=== PATIENT | male | born 1970 | race Two or more races ===

== ENCOUNTER 2016-06-17 06:14 | Emergency (ER) | payer MEDICAID ==
[~2016-06-17] VITALS: Ht 175.3 cm; Wt 86.2 kg
[~2016-06-17 06:14] MED LIST: ASPI-231 PO; FENO145T20 PO
[2016-06-17] MEDS ORDERED: SODIUM CHLORIDE 0.9% 1,000 ML IV ONE (07:02)
[2016-06-17 07:38] LABS: Basophils # (auto) 0 uL; Basophils % (auto) 0.4 % (0.0-2.0); Eosinophils # (auto) 0.1 uL; Eosinophils % (auto) 1.8 % (0.0-7.0); Hematocrit 29.6 % (41.0-53.0); Hemoglobin 10.1 g/dL (13.5-17.5); Lymphocytes # (auto) 0.7 uL; Lymphocytes % (auto) 13.9 % (10.0-50.0); Mean Corpuscular Hemoglobin 30.4 pg (28.0-32.0); Mean Corpuscular Volume 89.1 fL (80.0-100.0); Mean Platelet Volume 8.1 fL (7.4-10.4); Monocytes # (auto) 0.5 uL; Monocytes % (auto) 8.6 % (0.0-12.0); Neutrophils # (auto) 4.1 uL; Neutrophils % (auto) 75.3 % (37.0-80.0); Platelet Count (auto) 188 10^3/uL (140-450); Red Cell Distribution Width 12.4 % (11.6-16.0); White Blood Cell 5.4 10^3/uL (4.4-10.8)
[2016-06-17 08:04] LABS: Urine Bilirubin Negative (Negative); Urine Blood Negative /uL (Negative); Urine Glucose Normal (Normal); Urine Ketone Negative (Negative); Urine Nitrite Negative (Negative); Urine RBC <1 /hpf (0 - 3); Urine Urobilinogen Normal (Negative); Urine pH 5.5 (5.0-8.0)
[2016-06-17 08:09] LABS: Urine Color Straw (Yellow)
[2016-06-17 08:12] LABS: Albumin 2.9 g/dL (3.4-5.0); Calcium 8.1 mg/dL (8.5-10.1); Magnesium 2.6 mg/dL (1.6-2.6); Potassium 5.1 mmol/L (3.5-5.1)
[2016-06-17 08:14] LABS: BUN/Creatinine Ratio 15.6
[2016-06-17 08:16] LABS: Bilirubin, Total 0.2 mg/dL (0.2-1.0); Total Protein 7.1 g/dL (6.4-8.2)
[2016-06-17 09:02] LABS: Partial Thromboplastin Time 28.2 sec (22.64-33.71); Prothrombin Time 9.6 sec (9.37-12.3)
[2016-06-17 09:05] LABS: INR 0.89 (0.9-1.15)
[2016-06-17 11:15] VITALS: BP 109/66
== END 2016-06-17 12:41 | disposition home or self-care (01) ==
LOC: EDBD 06:14 → ER 06:17
DX: E11.649 Type 2 diabetes mellitus with hypoglycemia without coma (principal); G93.41 Metabolic encephalopathy; I12.9 Hypertensive chronic kidney disease with stage 1 through stage 4 chronic kidney disease, or unspecified chronic kidney disease; E11.22 Type 2 diabetes mellitus with diabetic chronic kidney disease; N18.4 Chronic kidney disease, stage 4 (severe); D63.1 Anemia in chronic kidney disease; E44.0 Moderate protein-calorie malnutrition; Z68.28 Body mass index [BMI] 28.0-28.9, adult; E11.21 Type 2 diabetes mellitus with diabetic nephropathy; Z87.891 Personal history of nicotine dependence; Z79.4 Long term (current) use of insulin; Z86.73 Personal history of transient ischemic attack (TIA), and cerebral infarction without residual deficits; Z88.1 Allergy status to other antibiotic agents; Z79.82 Long term (current) use of aspirin
CPT/HCPCS: 36415; 80053; 81001; 82962; 83735; 84443; 85025; 85610; 85730; 96360; 99285; J7030

== ENCOUNTER 2017-03-26 19:53 | Emergency (ER) | payer OTHER, MEDICAID ==
[~2017-03-26] VITALS: Ht 162.6 cm; Wt 90.7 kg
[~2017-03-26 19:53] MED LIST changes: -FENO145T20 PO; +FENO1TAB42 PO
[2017-03-26 23:10] VITALS: BP 133/70
[2017-03-27] MEDS ORDERED: KETOROLAC TROMETH 60MG/2ML VIAL IM ONE (00:30)
[2017-05-14] MEDS ORDERED: SEVE800T8 PO (09:30)
== END 2017-03-27 03:55 | disposition home or self-care (01) ==
LOC: ER 19:53
DX: M16.11 Unilateral primary osteoarthritis, right hip (principal); I12.9 Hypertensive chronic kidney disease with stage 1 through stage 4 chronic kidney disease, or unspecified chronic kidney disease; E11.9 Type 2 diabetes mellitus without complications; E78.5 Hyperlipidemia, unspecified; Z86.73 Personal history of transient ischemic attack (TIA), and cerebral infarction without residual deficits; Z87.891 Personal history of nicotine dependence; Z79.82 Long term (current) use of aspirin; Z89.512 Acquired absence of left leg below knee
CPT/HCPCS: 73502; 96372; 99284; J1885

== ENCOUNTER 2017-04-01 05:39 | Inpatient (IN) | payer OTHER, MEDICAID ==
[~2017-04-01] VITALS: Ht 170.2 cm; Wt 89.7 kg
[2017-04-01] MEDS ORDERED: SODIUM CHLORIDE 0.9% 1,000 ML IV ONE (06:48)
[2017-04-01] MEDS ORDERED: LABETALOL HCL 5 MG/ML ML 20ML VIAL IV ONE (07:00)
[2017-04-01 07:46] LABS: Basophils # (auto) 0 uL; Basophils % (auto) 0.4 % (0.0-2.0); Eosinophils # (auto) 0.1 uL; Eosinophils % (auto) 0.6 % (0.0-7.0); Hematocrit 34.1 % (41.0-53.0); Hemoglobin 11.3 g/dL (13.5-17.5); Lymphocytes # (auto) 0.8 uL; Lymphocytes % (auto) 6.1 % (10.0-50.0); Mean Corpuscular Volume 90.8 fL (80.0-100.0); Monocytes # (auto) 0.6 uL; Monocytes % (auto) 4.5 % (0.0-12.0); Neutrophils # (auto) 11.4 uL; Neutrophils % (auto) 88.4 % (37.0-80.0); Platelet Count (auto) 212 10^3/uL (140-450); Red Blood Cells 3.76 10^6/uL (4.5-5.90); Red Cell Distribution Width 14.1 % (11.8-14.3); White Blood Cell 12.9 10^3/uL (4.4-10.8)
[2017-04-01 08:07] LABS: INR 0.94 (0.9-1.15); Prothrombin Time 10.2 sec (9.37-12.3)
[2017-04-01 08:08] LABS: Alanine Aminotransferase 42 U/L (16-61); Albumin 3.1 g/dL (3.4-5.0); Alkaline Phosphatase 92 U/L (45-117); Anion Gap 17 (5-15); Aspartate Aminotransferase 22 U/L (15-37); BUN/Creatinine Ratio 13.4; Bilirubin, Total 0.2 mg/dL (0.2-1.0); Blood Alcohol < 3.0 mg/dL (0-5); Calcium 8.1 mg/dL (8.5-10.1); Carbon Dioxide 19 mmol/L (21-32); Chloride 106 mmol/L (98-107); GFR African American 8 mL/min; GFR Non-African American 6 mL/min; Glucose 225 mg/dL (74-106); Potassium 4.7 mmol/L (3.5-5.1); Sodium 142 mmol/L (136-145); Total Protein 8.2 g/dL (6.4-8.2)
[2017-04-01 08:20] LABS: Blood Urea Nitrogen 127 mg/dL (7-18)
[2017-04-01 08:31] LABS: Urine Bacteria FEW /hpf (None Seen); Urine Blood Negative /uL (Negative); Urine Specific Gravity 1.013 (1.001-1.035); Urine WBC 1 /hpf (0 - 3)
[2017-04-01 08:41] LABS: Alcohol, Urine < 3.0 mg/dL (0-5); Amphetamine Screen, Urine NEGATIVE (NEGATIVE); Barbiturate Scree,Urine NEGATIVE (NEGATIVE); Benzodiazephine Screen, Urine NEGATIVE (NEGATIVE); Cannabinoid Screen, Urine NEGATIVE (NEGATIVE); Cocaine Screen, Urine NEGATIVE (NEGATIVE); Opiate Scree,Urine NEGATIVE (NEGATIVE); Phencyclidine Screen, Urine NEGATIVE (NEGATIVE)
[2017-04-01] MEDS: SODIUM CHLORIDE 0.9% 1,000 ML IV SCH (09:36)
[2017-04-01] MEDS ORDERED: FERR-20 PO (09:44)
[2017-04-01] MEDS ORDERED: LEVO50TA7 PO (09:44)
[2017-04-01] MEDS ORDERED: GABA300C10 PO (09:44)
[2017-04-01] MEDS ORDERED: LOSA50TA6 PO (09:44)
[2017-04-01] MEDS ORDERED: CAR3125T PO (09:44)
[2017-04-01] MEDS ORDERED: MECL-87 PO (09:44)
[2017-04-01] MEDS ORDERED: BACL10TA PO (09:44)
[2017-04-01] MEDS ORDERED: ERGO2000 PO (09:44)
[2017-04-01] MEDS ORDERED: SIMV-13 PO (09:44)
[2017-04-01] MEDS ORDERED: CHLO25TA22 PO (09:44)
[2017-04-01] MEDS ORDERED: BUME1TAB28 PO (09:44)
[2017-04-01] MEDS ORDERED: GLIP-116 PO (09:44)
[2017-04-01] MEDS ORDERED: HYDROcodone-ACET 5/325MG TAB PO PRN (09:45)
[2017-04-01] MEDS ORDERED: MORPHINE SULFATE 4 MG/ML SYR/VIAL IV PRN ×2 (09:45)
[2017-04-01] MEDS ORDERED: cefTRIAXone 1GM/10ml IVPUSH 10 ML IV ONE (09:45)
[2017-04-01] MEDS ORDERED: MECLIZINE HCL 25 MG TAB PO PRN (09:45)
[2017-04-01] MEDS ORDERED: NITROGLYCERIN 0.4 MG SL TAB SL PRN (09:45)
[2017-04-01] MEDS: LOSARTAN POTASSIUM 50 MG TAB PO SCH (10:00)
[2017-04-01] MEDS: BUMETANIDE 1 MG TAB PO SCH ×2 (10:00→18:00)
[2017-04-01] MEDS: GABAPENTIN 300 MG CAP PO SCH (10:00)
[2017-04-01] MEDS: glipiZIDE 5 MG TAB PO SCH ×2 (10:00→18:00)
[2017-04-01] MEDS: MULTIPLE VITAMIN TAB PO SCH (10:00)
[2017-04-01] MEDS: ASCORBIC ACID 500 MG TAB PO SCH ×2 (10:00→22:00)
[2017-04-01] MEDS: FAMOTIDINE 20 MG TAB PO SCH (10:00)
[2017-04-01] MEDS: CARVEDILOL 3.125 MG TAB PO SCH ×2 (10:00→22:00)
[2017-04-01] MEDS ORDERED: FAMOTIDINE 20 MG TAB PO SCH (10:00)
[2017-04-01] MEDS: ZINC SULFATE 220 MG CAP PO SCH (10:00)
[2017-04-01] MEDS ORDERED: ASPirin-EC 81 mg tab PO ONE (10:15)
[2017-04-01] MEDS: LINEZOLID 600MG/300ML 300 ML IV SCH ×2 (10:19→22:17)
[2017-04-01] MEDS: ENOXAPARIN SOD 30 MG/0.3 ML SYRINGE SC SCH (10:19)
[2017-04-01] MEDS: Boost Glucose Control 8 Ounces PO SCH ×2 (12:00→18:00)
[2017-04-01] MEDS: FERROUS SULFATE 325 MG TAB PO SCH ×2 (12:00→18:00)
[2017-04-01] MEDS: SODIUM CHL 0.9% 1000 ML BAG XX ONE ×2 (12:45→13:14)
[2017-04-01] MEDS ORDERED: GABAPENTIN 300 MG CAP PO SCH (14:00)
[2017-04-01] MEDS ORDERED: LABETALOL HCL 5 MG/ML ML 20ML VIAL IV PRN (18:45)
[2017-04-01] MEDS: ATORVASTATIN 20 MG TAB PO SCH (22:00)
[2017-04-02] MEDS: SODIUM CHLORIDE 0.9% 1,000 ML IV SCH (02:44)
[2017-04-02] MEDS: ONDANSETRON HCL 4 MG/2 ML VIAL IV PRN ×2 (02:49→07:04)
[2017-04-02 05:46] LABS: Basophils # (auto) 0 uL; Basophils % (auto) 0.4 % (0.0-2.0); Eosinophils # (auto) 0 uL; Eosinophils % (auto) 0.4 % (0.0-7.0); Hematocrit 28.9 % (41.0-53.0); Hemoglobin 9.4 g/dL (13.5-17.5); Lymphocytes # (auto) 0.8 uL; Lymphocytes % (auto) 10.5 % (10.0-50.0); Mean Corpuscular Hemoglobin 29.9 pg (28.0-32.0); Mean Corpuscular Hgb Conc. 32.7 g/dL (32.0-36.0); Mean Corpuscular Volume 91.5 fL (80.0-100.0); Monocytes # (auto) 0.6 uL; Monocytes % (auto) 8.3 % (0.0-12.0); Neutrophils # (auto) 6.2 uL; Neutrophils % (auto) 80.4 % (37.0-80.0); Platelet Count (auto) 186 10^3/uL (140-450); Red Blood Cells 3.15 10^6/uL (4.5-5.90); Red Cell Distribution Width 14.3 % (11.8-14.3); White Blood Cell 7.7 10^3/uL (4.4-10.8)
[2017-04-02] MEDS: BUMETANIDE 1 MG TAB PO SCH ×2 (06:00→17:17)
[2017-04-02 06:07] LABS: Albumin 2.7 g/dL (3.4-5.0); BUN/Creatinine Ratio 11.9; Bilirubin, Total 0.2 mg/dL (0.2-1.0); Phosphorus 6.7 mg/dL (2.5-4.90); Potassium 4.6 mmol/L (3.5-5.1); Total Protein 7.1 g/dL (6.4-8.2)
[2017-04-02] MEDS: glipiZIDE 5 MG TAB PO SCH ×2 (06:55→17:21)
[2017-04-02] MEDS: LEVOTHYROXINE SODIUM 50 MCG TAB PO SCH (06:55)
[2017-04-02 08:00] VITALS: BP 151/81
[2017-04-02] MEDS: Boost Glucose Control 8 Ounces PO SCH ×3 (08:07→17:16)
[2017-04-02] MEDS: FERROUS SULFATE 325 MG TAB PO SCH (08:08)
[2017-04-02 09:00] VITALS: BP 150/81
[2017-04-02] MEDS ORDERED: cefTRIAXone 1GM/10ml IVPUSH 10 ML IV SCH (09:00)
[2017-04-02] MEDS: ENOXAPARIN SOD 30 MG/0.3 ML SYRINGE SC SCH (09:47)
[2017-04-02] MEDS: ZINC SULFATE 220 MG CAP PO SCH (09:47)
[2017-04-02] MEDS: ASPirin-EC 81 mg tab PO SCH (09:48)
[2017-04-02] MEDS: LOSARTAN POTASSIUM 50 MG TAB PO SCH (09:48)
[2017-04-02] MEDS: GABAPENTIN 300 MG CAP PO SCH (09:48)
[2017-04-02] MEDS: FAMOTIDINE 20 MG TAB PO SCH (09:48)
[2017-04-02] MEDS: MULTIPLE VITAMIN TAB PO SCH (09:48)
[2017-04-02] MEDS: LINEZOLID 600MG/300ML 300 ML IV SCH (09:49)
[2017-04-02] MEDS: ASCORBIC ACID 500 MG TAB PO SCH ×2 (09:49→21:51)
[2017-04-02] MEDS: CARVEDILOL 3.125 MG TAB PO SCH ×2 (09:49→21:52)
[2017-04-02] MEDS ORDERED: SODIUM CHL 0.9% 1000 ML BAG XX ONE (10:45)
[2017-04-02] MEDS ORDERED: EPOETIN ALFA 10,000 UNIT/1 ML VIAL IV ONE (10:45)
[2017-04-02] MEDS ORDERED: ERGOCALCIFEROL 50,000 UNIT(1.25MG) CAP PO SCH (12:00)
[2017-04-02] MEDS: SEVELAMER 800 MG TAB PO SCH ×2 (12:45→17:21)
[2017-04-02 17:00] VITALS: BP 145/82
[2017-04-02 20:53] VITALS: BP 158/104
[2017-04-02] MEDS: ATORVASTATIN 20 MG TAB PO SCH (21:52)
[2017-04-02] MEDS: LABETALOL HCL 5 MG/ML ML 20ML VIAL IV PRN (21:53)
[2017-04-03 04:54] VITALS: BP 166/92
[2017-04-03 06:00] VITALS: BP 155/89
[2017-04-03] MEDS: LEVOTHYROXINE SODIUM 50 MCG TAB PO SCH (06:12)
[2017-04-03] MEDS: glipiZIDE 5 MG TAB PO SCH ×3 (06:13→18:00)
[2017-04-03] MEDS: BUMETANIDE 1 MG TAB PO SCH ×2 (06:13→18:11)
[2017-04-03 06:14] LABS: Calcium 8.8 mg/dL (8.5-10.1); Potassium 4.1 mmol/L (3.5-5.1)
[2017-04-03 06:16] LABS: BUN/Creatinine Ratio 9.5
[2017-04-03 09:00] VITALS: BP 147/99
[2017-04-03] MEDS: Boost Glucose Control 8 Ounces PO SCH ×3 (09:29→18:00)
[2017-04-03] MEDS: FERROUS SULFATE 325 MG TAB PO SCH (09:30)
[2017-04-03] MEDS: ZINC SULFATE 220 MG CAP PO SCH (09:30)
[2017-04-03] MEDS: SEVELAMER 800 MG TAB PO SCH ×3 (09:30→18:00)
[2017-04-03] MEDS: CARVEDILOL 3.125 MG TAB PO SCH ×3 (09:31→22:02)
[2017-04-03] MEDS: LOSARTAN POTASSIUM 50 MG TAB PO SCH (09:31)
[2017-04-03] MEDS: ASPirin-EC 81 mg tab PO SCH (09:31)
[2017-04-03] MEDS: FAMOTIDINE 20 MG TAB PO SCH (09:32)
[2017-04-03] MEDS: MULTIPLE VITAMIN TAB PO SCH (09:32)
[2017-04-03] MEDS: GABAPENTIN 300 MG CAP PO SCH (09:32)
[2017-04-03] MEDS: ASCORBIC ACID 500 MG TAB PO SCH ×3 (09:33→22:02)
[2017-04-03] MEDS: ENOXAPARIN SOD 30 MG/0.3 ML SYRINGE SC SCH (09:33)
[2017-04-03] MEDS: NIFEdipine ER 30 MG TAB PO SCH (09:33)
[2017-04-03 13:00] VITALS: BP 129/65
[2017-04-03] MEDS ORDERED: HALOPERIDOL 5 MG TAB PO ONE (15:00)
[2017-04-03] MEDS ORDERED: HALOPERIDOL 5 MG TAB PO PRN (15:00)
[2017-04-03 17:00] VITALS: BP 103/67
[2017-04-03] MEDS: DOCUSATE SOD 100 MG CAP PO PRN (18:16)
[2017-04-03] MEDS ORDERED: BISACODYL 10 MG RECT SUPP PR PRN ×2 (18:30→18:45)
[2017-04-03 22:00] VITALS: BP 161/84
[2017-04-03] MEDS: ATORVASTATIN 20 MG TAB PO SCH ×2 (22:00→22:01)
[2017-04-04] VITALS (7 sets, daily range): BP systolic 122–159; BP diastolic 73–90
[2017-04-04 06:13] LABS: Calcium 8.9 mg/dL (8.5-10.1); Potassium 4.1 mmol/L (3.5-5.1)
[2017-04-04] MEDS: BUMETANIDE 1 MG TAB PO SCH ×2 (06:17→17:46)
[2017-04-04] MEDS: glipiZIDE 5 MG TAB PO SCH ×2 (06:34→17:49)
[2017-04-04] MEDS: LEVOTHYROXINE SODIUM 50 MCG TAB PO SCH (06:34)
[2017-04-04] MEDS ORDERED: EPOETIN ALFA 10,000 UNIT/1 ML VIAL IV ONE (07:30)
[2017-04-04] MEDS ORDERED: SODIUM CHL 0.9% 1000 ML BAG XX ONE (07:30)
[2017-04-04] MEDS: SEVELAMER 800 MG TAB PO SCH ×3 (08:00→17:49)
[2017-04-04 09:29] LABS: Hepatitis B Surface Antibody Negative
[2017-04-04 09:37] LABS: Hepatitis B Surface Antigen Negative (Negative)
[2017-04-04] MEDS: ENOXAPARIN SOD 30 MG/0.3 ML SYRINGE SC SCH (09:49)
[2017-04-04] MEDS: CARVEDILOL 3.125 MG TAB PO SCH ×2 (09:50→21:35)
[2017-04-04] MEDS: ASCORBIC ACID 500 MG TAB PO SCH ×2 (09:50→21:35)
[2017-04-04] MEDS: FAMOTIDINE 20 MG TAB PO SCH (09:50)
[2017-04-04] MEDS: MULTIPLE VITAMIN TAB PO SCH (09:50)
[2017-04-04] MEDS: LOSARTAN POTASSIUM 50 MG TAB PO SCH (09:50)
[2017-04-04] MEDS: ZINC SULFATE 220 MG CAP PO SCH (09:51)
[2017-04-04] MEDS: FERROUS SULFATE 325 MG TAB PO SCH (09:51)
[2017-04-04] MEDS: ASPirin-EC 81 mg tab PO SCH (09:51)
[2017-04-04 09:57] LABS: Hepatitis C Antibody Negative (Negative)
[2017-04-04 09:59] LABS: Hepatitis A Total Antibody Positive
[2017-04-04 10:00] LABS: Hepatitis B Core Total AB Negative
[2017-04-04] MEDS: NIFEdipine ER 30 MG TAB PO SCH (10:00)
[2017-04-04] MEDS: Boost Glucose Control 8 Ounces PO SCH ×3 (10:48→17:44)
[2017-04-04] MEDS: ATORVASTATIN 20 MG TAB PO SCH (21:35)
[2017-04-05 06:06] VITALS: BP 118/76
[2017-04-05 06:35] LABS: Basophils # (auto) 0 uL; Basophils % (auto) 0.6 % (0.0-2.0); Eosinophils # (auto) 0.1 uL; Eosinophils % (auto) 1.8 % (0.0-7.0); Hematocrit 26.8 % (41.0-53.0); Lymphocytes # (auto) 0.9 uL; Lymphocytes % (auto) 12.2 % (10.0-50.0); Mean Corpuscular Hemoglobin 30.6 pg (28.0-32.0); Mean Corpuscular Hgb Conc. 33.4 g/dL (32.0-36.0); Mean Corpuscular Volume 91.4 fL (80.0-100.0); Monocytes # (auto) 0.9 uL; Monocytes % (auto) 11.7 % (0.0-12.0); Neutrophils # (auto) 5.7 uL; Neutrophils % (auto) 73.7 % (37.0-80.0); Nucleated Red Blood Cells % 0.1 %; Platelet Count (auto) 159 10^3/uL (140-450); Red Blood Cells 2.93 10^6/uL (4.5-5.90); Red Cell Distribution Width 13.6 % (11.8-14.3); White Blood Cell 7.7 10^3/uL (4.4-10.8)
[2017-04-05] MEDS: BUMETANIDE 1 MG TAB PO SCH ×2 (06:40→17:33)
[2017-04-05] MEDS: glipiZIDE 5 MG TAB PO SCH ×2 (06:40→17:41)
[2017-04-05] MEDS: LEVOTHYROXINE SODIUM 50 MCG TAB PO SCH (06:41)
[2017-04-05 06:57] LABS: Potassium 3.9 mmol/L (3.5-5.1)
[2017-04-05 07:12] LABS: BUN/Creatinine Ratio 11.5
[2017-04-05 07:15] LABS: INR 0.87 (0.9-1.15); Prothrombin Time 9.5 sec (9.37-12.3)
[2017-04-05 07:25] LABS: Partial Thromboplastin Time 26.8 sec (22.64-33.71)
[2017-04-05] MEDS: Boost Glucose Control 8 Ounces PO SCH ×3 (07:58→17:33)
[2017-04-05] MEDS: SEVELAMER 800 MG TAB PO SCH ×3 (07:58→17:39)
[2017-04-05 08:00] VITALS: BP 124/87
[2017-04-05 08:30] VITALS: BP 120/75
[2017-04-05] MEDS ORDERED: HEPARIN IN NS 1000Units/500mL 0 ML ONE (09:58)
[2017-04-05] MEDS ORDERED: LIDOCAINE 2%HCL (LOCAL ANESTH.) INJ 20ML MDV ONE ×2 (09:58→10:24)
[2017-04-05] MEDS: ENOXAPARIN SOD 30 MG/0.3 ML SYRINGE SC SCH (10:00)
[2017-04-05] MEDS: ASCORBIC ACID 500 MG TAB PO SCH ×2 (10:00→22:00)
[2017-04-05] MEDS ORDERED: EPOETIN ALFA 10,000 UNIT/1 ML VIAL IV ONE (10:00)
[2017-04-05] MEDS: NIFEdipine ER 30 MG TAB PO SCH (10:00)
[2017-04-05] MEDS: ZINC SULFATE 220 MG CAP PO SCH (10:00)
[2017-04-05] MEDS: FERROUS SULFATE 325 MG TAB PO SCH (10:00)
[2017-04-05] MEDS ORDERED: SODIUM CHL 0.9% 1000 ML BAG XX ONE (10:00)
[2017-04-05] MEDS: LOSARTAN POTASSIUM 50 MG TAB PO SCH (10:00)
[2017-04-05] MEDS: ASPirin-EC 81 mg tab PO SCH (10:00)
[2017-04-05] MEDS: MULTIPLE VITAMIN TAB PO SCH (10:00)
[2017-04-05] MEDS: FAMOTIDINE 20 MG TAB PO SCH (10:00)
[2017-04-05] MEDS: CARVEDILOL 3.125 MG TAB PO SCH ×2 (10:00→22:10)
[2017-04-05] MEDS ORDERED: fentaNYL CITRATE 100 MCG/2 ML VL ONE (10:24)
[2017-04-05] MEDS ORDERED: MIDAZOLAM HCL 1MG/1ML-2 ML VIAL ONE (10:24)
[2017-04-05] MEDS ORDERED: ceFAZolin 1GM/50ML 50 ML IV ONE (10:38)
[2017-04-05] MEDS ORDERED: HEPARIN SODIUM (PORCINE) 5000 UNITS/ML 1ML VIAL ONE (10:54)
[2017-04-05] MEDS: LABETALOL HCL 5 MG/ML ML 20ML VIAL IV PRN (11:57)
[2017-04-05] MEDS: ACETAMINOPHEN 325 MG TAB PO PRN ×2 (17:31→22:09)
[2017-04-05 22:00] VITALS: BP 129/84
[2017-04-05] MEDS: ATORVASTATIN 20 MG TAB PO SCH (22:10)
[2017-04-05] MEDS: DOCUSATE SOD 100 MG CAP PO PRN (22:17)
[2017-04-06] MEDS: ACETAMINOPHEN 325 MG TAB PO PRN (03:27)
[2017-04-06 05:00] VITALS: BP 117/62
[2017-04-06 05:45] LABS: Basophils # (auto) 0 uL; Basophils % (auto) 0.6 % (0.0-2.0); Eosinophils # (auto) 0.2 uL; Eosinophils % (auto) 2.1 % (0.0-7.0); Hematocrit 31.5 % (41.0-53.0); Hemoglobin 10.5 g/dL (13.5-17.5); Lymphocytes # (auto) 0.9 uL; Lymphocytes % (auto) 10.1 % (10.0-50.0); Mean Corpuscular Hemoglobin 30.1 pg (28.0-32.0); Mean Corpuscular Hgb Conc. 33.2 g/dL (32.0-36.0); Mean Corpuscular Volume 90.7 fL (80.0-100.0); Monocytes % (auto) 11.6 % (0.0-12.0); Neutrophils # (auto) 6.4 uL; Neutrophils % (auto) 75.6 % (37.0-80.0); Nucleated Red Blood Cells % 0.1 %; Platelet Count (auto) 187 10^3/uL (140-450); Red Blood Cells 3.48 10^6/uL (4.5-5.90); White Blood Cell 8.5 10^3/uL (4.4-10.8)
[2017-04-06] MEDS: glipiZIDE 5 MG TAB PO SCH (06:27)
[2017-04-06] MEDS: LEVOTHYROXINE SODIUM 50 MCG TAB PO SCH (06:27)
[2017-04-06] MEDS: BUMETANIDE 1 MG TAB PO SCH (06:27)
[2017-04-06 07:45] VITALS: BP 128/80
[2017-04-06] MEDS: SEVELAMER 800 MG TAB PO SCH (07:56)
[2017-04-06] MEDS: Boost Glucose Control 8 Ounces PO SCH (07:56)
[2017-04-06] MEDS ORDERED: NIFE30TA76 PO (09:43)
[2017-04-06] MEDS ORDERED: ASCO500T11 PO (09:43)
[2017-04-06] MEDS ORDERED: ZIN220C PO (09:43)
[2017-04-06] MEDS ORDERED: SODIUM CHL 0.9% 1000 ML BAG XX ONE (10:00)
[2017-04-06] MEDS: LOSARTAN POTASSIUM 50 MG TAB PO SCH (10:13)
[2017-04-06] MEDS: FERROUS SULFATE 325 MG TAB PO SCH (10:13)
[2017-04-06] MEDS: CARVEDILOL 3.125 MG TAB PO SCH (10:14)
[2017-04-06] MEDS: ASCORBIC ACID 500 MG TAB PO SCH (10:15)
[2017-04-06] MEDS: NIFEdipine ER 30 MG TAB PO SCH (10:15)
[2017-04-06] MEDS: MULTIPLE VITAMIN TAB PO SCH (10:15)
[2017-04-06] MEDS: ZINC SULFATE 220 MG CAP PO SCH (10:15)
[2017-04-06] MEDS: ENOXAPARIN SOD 30 MG/0.3 ML SYRINGE SC SCH (10:16)
[2017-04-06] MEDS: FAMOTIDINE 20 MG TAB PO SCH (10:16)
[2017-04-06] MEDS: ASPirin-EC 81 mg tab PO SCH (10:16)
[2017-04-06 10:26] VITALS: BP 129/80
[2017-05-14] MEDS ORDERED: SEVE800T8 PO (09:30)
== END 2017-04-06 11:00 | disposition home or self-care (01) | DRG 91 ==
LOC: ER 05:39 → EDBD 05:39 → OVERFLOW 05:40 → TELE 23:26 → TELE-WESTW 04-02 06:14
PROVIDERS: ADMIT Internal Medicine; ATTEND Internal Medicine
PROC: 5A1D70Z Performance of Urinary Filtration, Intermittent, Less than 6 Hours Per Day (ICD-10-PCS; 2017-04-01)
PROC: 05H333Z Insertion of Infusion Device into Right Innominate Vein, Percutaneous Approach (ICD-10-PCS; 2017-04-01)
PROC: 5A1D70Z Performance of Urinary Filtration, Intermittent, Less than 6 Hours Per Day (ICD-10-PCS; 2017-04-02)
PROC: 5A1D70Z Performance of Urinary Filtration, Intermittent, Less than 6 Hours Per Day (ICD-10-PCS; principal; 2017-04-05)
DX: G92 Toxic encephalopathy (principal); N18.6 End stage renal disease; N17.9 Acute kidney failure, unspecified; E44.0 Moderate protein-calorie malnutrition; I12.0 Hypertensive chronic kidney disease with stage 5 chronic kidney disease or end stage renal disease; E11.21 Type 2 diabetes mellitus with diabetic nephropathy; E11.40 Type 2 diabetes mellitus with diabetic neuropathy, unspecified; E87.2 Acidosis; I69.351 Hemiplegia and hemiparesis following cerebral infarction affecting right dominant side; E11.22 Type 2 diabetes mellitus with diabetic chronic kidney disease; D63.1 Anemia in chronic kidney disease; E03.9 Hypothyroidism, unspecified; E78.5 Hyperlipidemia, unspecified; E83.51 Hypocalcemia; G31.9 Degenerative disease of nervous system, unspecified; I70.0 Atherosclerosis of aorta; T42.8X5A Adverse effect of antiparkinsonism drugs and other central muscle-tone depressants, initial encounter; K42.9 Umbilical hernia without obstruction or gangrene; Z79.82 Long term (current) use of aspirin; Z79.899 Other long term (current) drug therapy; Z89.512 Acquired absence of left leg below knee; Z90.49 Acquired absence of other specified parts of digestive tract; Z99.2 Dependence on renal dialysis; Y92.89 Other specified places as the place of occurrence of the external cause; Z88.2 Allergy status to sulfonamides; Z88.8 Allergy status to other drugs, medicaments and biological substances; Z88.1 Allergy status to other antibiotic agents; Z68.31 Body mass index [BMI] 31.0-31.9, adult
CPT/HCPCS: 36415; 36556; 51702; 70450; 71045; 74176; 76000; 76937; 80048; 80053; 80307; 80320; 81001; 82140; 82248; 82962; 83036; 83605; 84100; 84443; 84484; 85025; 85610; 85730; 86704; 86706; 86708; 86803; 87040; 87086; 87340; 90935; 92610; 93005; 93306; 93886; 95819; 96361; 96374; 97163; 99152; J0690; J0885; J1642; J2250; J2405

== ENCOUNTER 2017-06-30 19:56 | Inpatient (IN) | payer OTHER, MEDICAID ==
[~2017-06-30] VITALS: Ht 165.1 cm; Wt 90.7 kg
[~2017-06-30 19:56] MED LIST changes: +ASCO500T11 PO; +BUME1TAB28 PO; +CAR3125T PO; +CHLO25TA22 PO; +ERGO2000 PO; -FENO1TAB42 PO; +FERR-20 PO; +GABA300C10 PO; +GLIP-116 PO; +LEVO50TA7 PO; +MECL-87 PO; +NIFE30TA76 PO; +SEVE800T8 PO; +SIMV-13 PO; +ZIN220C PO
[2017-06-30] MEDS ORDERED: FUROSEMIDE 100 MG/10ML VIAL IV ONE (20:15)
[2017-06-30] MEDS ORDERED: FUROSEMIDE 40 MG/4 ML VIAL IV ONE (20:15)
[2017-06-30 21:11] LABS: Basophils # (auto) 0.1 uL; Basophils % (auto) 0.6 % (0.0-2.0); Eosinophils # (auto) 0.1 uL; Eosinophils % (auto) 0.8 % (0.0-7.0); Hematocrit 33.7 % (41.0-53.0); Hemoglobin 10.7 g/dL (13.5-17.5); Lymphocytes # (auto) 1.7 uL; Lymphocytes % (auto) 15.4 % (10.0-50.0); Mean Corpuscular Hemoglobin 28.8 pg (28.0-32.0); Mean Corpuscular Hgb Conc. 31.7 g/dL (32.0-36.0); Mean Corpuscular Volume 90.6 fL (80.0-100.0); Monocytes # (auto) 0.7 uL; Monocytes % (auto) 6.4 % (0.0-12.0); Neutrophils # (auto) 8.7 uL; Neutrophils % (auto) 76.8 % (37.0-80.0); Platelet Count (auto) 181 10^3/uL (140-450); Red Blood Cells 3.72 10^6/uL (4.5-5.90); Red Cell Distribution Width 15.7 % (11.8-14.3); White Blood Cell 11.3 10^3/uL (4.4-10.8)
[2017-06-30 21:29] LABS: Alanine Aminotransferase 21 U/L (16-61); Anion Gap 13 (5-15); Aspartate Aminotransferase 26 U/L (15-37); BUN/Creatinine Ratio 6.6; Blood Urea Nitrogen 66 mg/dL (7-18); Calcium 8.2 mg/dL (8.5-10.1); Carbon Dioxide 21 mmol/L (21-32); Chloride 103 mmol/L (98-107); GFR African American 7 mL/min; GFR Non-African American 6 mL/min; Glucose 80 mg/dL (74-106); Sodium 137 mmol/L (136-145)
[2017-06-30] MEDS ORDERED: LABETALOL HCL 5 MG/ML ML 20ML VIAL IV ONE (21:30)
[2017-06-30 21:32] LABS: Potassium 5.9 mmol/L (3.5-5.1)
[2017-06-30 21:34] LABS: Alkaline Phosphatase 135 U/L (45-117); Bilirubin, Total 0.5 mg/dL (0.2-1.0); Total Protein 8.7 g/dL (6.4-8.2)
[2017-06-30] MEDS ORDERED: HYDROcodone-ACET 5/325MG TAB PO PRN (22:30)
[2017-06-30] MEDS ORDERED: LEVOFLOXACIN 250MG 50 ML IV ONE (22:30)
[2017-06-30] MEDS ORDERED: MORPHINE SULFATE 4 MG/ML SYR/VIAL IV PRN (22:30)
[2017-06-30] MEDS ORDERED: InsuLIN REG 1unit/0.01ml Soln (100units/ml) IV ONE (22:30)
[2017-06-30] MEDS ORDERED: CALCIUM GLUC 4.65meq/50ml D5AE 50 ML IV ONE (22:30)
[2017-06-30] MEDS ORDERED: SODIUM POLYSTYRENE SULF 15GM/60ML SUSP PO ONE (22:30)
[2017-06-30] MEDS ORDERED: TEMAZEPAM 15 MG CAP PO PRN (22:30)
[2017-06-30] MEDS ORDERED: ACETAMINOPHEN 325 MG TAB PO PRN (22:30)
[2017-06-30] MEDS ORDERED: ALBUTEROL SULF 2.5 MG/0.5ML(0.5%) NEB SOLN NEB PRN (22:30)
[2017-06-30] MEDS ORDERED: NITROGLYCERIN 0.4 MG SL TAB SL PRN (22:30)
[2017-06-30] MEDS ORDERED: DEXTROSE (50%) 50ML SYRG IV ONE (22:30)
[2017-06-30] MEDS ORDERED: ONDANSETRON HCL 4 MG/2 ML VIAL IV PRN (22:30)
[2017-06-30] MEDS ORDERED: cloNIDine HCL 0.1 MG TAB PO PRN (22:30)
[2017-06-30 22:42] LABS: INR 1.05 (0.9-1.15); Partial Thromboplastin Time 27.4 sec (22.64-33.71); Prothrombin Time 11.5 sec (9.37-12.3)
[2017-06-30 22:50] VITALS: BP 135/75
[2017-06-30 23:14] VITALS: BP 143/81
[2017-07-01 00:55] VITALS: BP 152/88
[2017-07-01 01:04] LABS: Urine Bacteria FEW /hpf (None Seen); Urine Blood 2+ /uL (Negative); Urine Hyaline Cast FEW /lpf (0 - 2); Urine WBC 3 /hpf (0 - 3)
[2017-07-01 03:57] LABS: Basophils # (auto) 0.1 uL; Basophils % (auto) 0.6 % (0.0-2.0); Eosinophils # (auto) 0.1 uL; Eosinophils % (auto) 0.8 % (0.0-7.0); Hematocrit 28.6 % (41.0-53.0); Hemoglobin 9.5 g/dL (13.5-17.5); Lymphocytes # (auto) 1.7 uL; Lymphocytes % (auto) 16.6 % (10.0-50.0); Mean Corpuscular Hemoglobin 29.6 pg (28.0-32.0); Mean Corpuscular Hgb Conc. 33.1 g/dL (32.0-36.0); Mean Corpuscular Volume 89.3 fL (80.0-100.0); Monocytes # (auto) 0.8 uL; Monocytes % (auto) 7.7 % (0.0-12.0); Neutrophils # (auto) 7.6 uL; Neutrophils % (auto) 74.3 % (37.0-80.0); Platelet Count (auto) 151 10^3/uL (140-450); Red Blood Cells 3.21 10^6/uL (4.5-5.90); Red Cell Distribution Width 15.4 % (11.8-14.3); White Blood Cell 10.2 10^3/uL (4.4-10.8)
[2017-07-01 04:10] VITALS: BP 151/72
[2017-07-01 04:13] LABS: Albumin 2.7 g/dL (3.4-5.0); Calcium 7.9 mg/dL (8.5-10.1); Potassium 5.5 mmol/L (3.5-5.1)
[2017-07-01 04:21] LABS: BUN/Creatinine Ratio 6.9; Bilirubin, Total 0.5 mg/dL (0.2-1.0); Total Protein 7.8 g/dL (6.4-8.2)
[2017-07-01] MEDS: GABAPENTIN 300 MG CAP PO SCH ×2 (06:12→14:33)
[2017-07-01] MEDS: FUROSEMIDE 20 MG/2 ML VIAL IV SCH ×2 (06:12→18:00)
[2017-07-01] MEDS ORDERED: EPOETIN ALFA 10,000 UNIT/1 ML VIAL IV ONE (08:15)
[2017-07-01] MEDS ORDERED: HEPARIN SODIUM (PORCINE) 5000 UNITS/ML 1ML VIAL IV ONE (08:15)
[2017-07-01] MEDS ORDERED: LOSARTAN POTASSIUM 50 MG TAB PO SCH (10:00)
[2017-07-01] MEDS ORDERED: PANTOPRAZOLE 40 MG TAB PO SCH (10:00)
[2017-07-01] MEDS ORDERED: CARVEDILOL 3.125 MG TAB PO SCH (10:00)
[2017-07-01] MEDS ORDERED: SIMV-13 PO (11:14)
[2017-07-01] MEDS ORDERED: CHLO25TA22 PO (11:14)
[2017-07-01] MEDS ORDERED: CARV3.1240 PO (11:14)
[2017-07-01] MEDS ORDERED: GLIP-116 PO (11:14)
[2017-07-01] MEDS ORDERED: SEVE800T8 PO (11:14)
[2017-07-01] MEDS ORDERED: GABA300C10 PO (11:14)
[2017-07-01] MEDS ORDERED: ASPI-231 PO (11:18)
[2017-07-01] MEDS ORDERED: ERGO2000 PO (11:18)
[2017-07-01] MEDS ORDERED: DOXY100C41 PO (11:18)
[2017-07-01] MEDS: SEVELAMER 800 MG TAB PO SCH ×3 (11:28→18:00)
[2017-07-01] MEDS: FERROUS SULFATE 325 MG TAB PO SCH ×2 (11:28→18:00)
[2017-07-01 13:00] VITALS: BP 133/84
[2017-07-01 15:00] VITALS: BP 154/75
[2017-07-01 16:36] VITALS: BP 154/75
[2017-07-01] MEDS ORDERED: WARFARIN SODIUM 5 MG TAB PO ONE (17:00)
[2017-07-01] MEDS ORDERED: PRAVASTATIN SODIUM 20 MG TAB PO SCH (22:00)
[2017-07-01] MEDS ORDERED: PATIENTS OWN MEDICATION (simvastatin 40 MG) PO SCH (22:00)
[2017-07-02] MEDS ORDERED: LEVOFLOXACIN 250MG 50 ML IV SCH (22:00)
== END 2017-07-01 20:10 | disposition left against medical advice (07) | DRG 291 ==
LOC: EDSEX 19:56 → ER 19:56 → EDBD 19:56 → TELE 19:57 → MERGE 19:57 → TELE-CENTR 07-01 14:54
PROVIDERS: ADMIT Nurse Practitioner; ATTEND Internal Medicine
PROC: 5A09357 Assistance with Respiratory Ventilation, Less than 24 Consecutive Hours, Continuous Positive Airway Pressure (ICD-10-PCS; 2017-06-30)
PROC: 5A1D70Z Performance of Urinary Filtration, Intermittent, Less than 6 Hours Per Day (ICD-10-PCS; principal; 2017-07-01)
PROC: 5A09357 Assistance with Respiratory Ventilation, Less than 24 Consecutive Hours, Continuous Positive Airway Pressure (ICD-10-PCS; 2017-07-01)
DX: I13.2 Hypertensive heart and chronic kidney disease with heart failure and with stage 5 chronic kidney disease, or end stage renal disease (principal); J18.9 Pneumonia, unspecified organism; E11.22 Type 2 diabetes mellitus with diabetic chronic kidney disease; E11.621 Type 2 diabetes mellitus with foot ulcer; R65.10 Systemic inflammatory response syndrome (SIRS) of non-infectious origin without acute organ dysfunction; N18.6 End stage renal disease; E44.1 Mild protein-calorie malnutrition; I50.43 Acute on chronic combined systolic (congestive) and diastolic (congestive) heart failure; L97.419 Non-pressure chronic ulcer of right heel and midfoot with unspecified severity; N25.81 Secondary hyperparathyroidism of renal origin; G47.00 Insomnia, unspecified; D63.1 Anemia in chronic kidney disease; Z68.33 Body mass index [BMI] 33.0-33.9, adult; Z53.21 Procedure and treatment not carried out due to patient leaving prior to being seen by health care provider; D72.829 Elevated white blood cell count, unspecified; Z86.73 Personal history of transient ischemic attack (TIA), and cerebral infarction without residual deficits; Z99.2 Dependence on renal dialysis; Z89.512 Acquired absence of left leg below knee; Z88.2 Allergy status to sulfonamides; Z88.8 Allergy status to other drugs, medicaments and biological substances; Z79.82 Long term (current) use of aspirin; Z79.899 Other long term (current) drug therapy
CPT/HCPCS: 36415; 36600; 71045; 80053; 81001; 82805; 82962; 83605; 83735; 83880; 84484; 85025; 85379; 85610; 85730; 87040; 90935; 93005; 93306; 94660; 94761; 96374; 96375; J0610; J0885; J1815

== ENCOUNTER 2017-12-13 07:47 | Inpatient (IN) | payer OTHER, MEDICAID ==
[~2017-12-13] VITALS: Ht 165.1 cm; Wt 92.0 kg
[~2017-12-13 07:47] MED LIST changes: +CARV3.1240 PO
[2017-12-13 08:41] LABS: Basophils # (auto) 0.1 uL; Basophils % (auto) 0.9 % (0.0-2.0); Eosinophils # (auto) 0.2 uL; Hematocrit 35.4 % (41.0-53.0); Hemoglobin 11.7 g/dL (13.5-17.5); Lymphocytes % (auto) 14.3 % (10.0-50.0); Mean Corpuscular Hemoglobin 31.4 pg (28.0-32.0); Mean Corpuscular Hgb Conc. 33.1 g/dL (32.0-36.0); Mean Corpuscular Volume 94.9 fL (80.0-100.0); Monocytes # (auto) 0.6 uL; Monocytes % (auto) 7.8 % (0.0-12.0); Neutrophils # (auto) 5.4 uL; Nucleated Red Blood Cells % 0.1 %; Platelet Count (auto) 170 10^3/uL (140-450); Red Blood Cells 3.73 10^6/uL (4.5-5.90); Red Cell Distribution Width 15.1 % (11.8-14.3); White Blood Cell 7.3 10^3/uL (4.4-10.8)
[2017-12-13] MEDS ORDERED: cloNIDine HCL 0.1 MG TAB PO ONE (08:45)
[2017-12-13 09:20] LABS: Albumin 3.8 g/dL (3.4-5.0); BUN/Creatinine Ratio 5.5; Calcium 8.4 mg/dL (8.5-10.1); Magnesium 2.2 mg/dL (1.6-2.6); Potassium 3.7 mmol/L (3.5-5.1)
[2017-12-13 09:25] LABS: Bilirubin, Total 0.5 mg/dL (0.2-1.0); Total Protein 8.4 g/dL (6.4-8.2)
[2017-12-13] MEDS ORDERED: TEMAZEPAM 15 MG CAP PO PRN (13:15)
[2017-12-13] MEDS ORDERED: DEXTROSE (50%) 50ML SYRG IV PRN (13:15)
[2017-12-13] MEDS ORDERED: NITROGLYCERIN 0.4 MG SL TAB SL PRN (13:15)
[2017-12-13] MEDS ORDERED: MORPHINE SULFATE 4 MG/ML SYR/VIAL IV PRN (13:15)
[2017-12-13] MEDS ORDERED: ONDANSETRON HCL 4 MG/2 ML VIAL IV PRN (13:15)
[2017-12-13] MEDS ORDERED: LORazepam 0.5 MG TAB PO PRN (13:15)
[2017-12-13] MEDS ORDERED: CARVEDILOL 3.125 MG TAB PO ONE (13:45)
[2017-12-13] MEDS: NITROGLYCERIN 0.2MG/HR TOPICAL PATCH TD SCH (13:58)
[2017-12-13] MEDS: ENOXAPARIN SOD 40 MG/0.4 ML SYRINGE SC SCH (13:58)
[2017-12-13] MEDS ORDERED: PATIENTS OWN MEDICATION (Gabapentin 300 MG) PO SCH (14:00)
[2017-12-13] MEDS ORDERED: PATIENTS OWN MEDICATION (Sevelamer Carbonate (Renvela) 3 TAB) PO SCH (14:00)
[2017-12-13] MEDS: SODIUM CHLOR 0.9% PF (SALINE LOCK) 10ML VIAL/SYR IV SCH ×2 (14:41→22:46)
[2017-12-13] MEDS: traMADol HCL 50 MG TAB PO PRN ×2 (16:44→22:59)
[2017-12-13] MEDS: ACCU-CHEK COMFORT CURVE STRIP VI SCH ×2 (16:49→22:00)
[2017-12-13] MEDS: InsuLIN REG 1unit/0.01ml Soln (100units/ml) SC SCH ×2 (16:49→22:00)
[2017-12-13 16:58] VITALS: BP 157/81
[2017-12-13] MEDS ORDERED: LABETALOL HCL 5 MG/ML ML 20ML VIAL IV PRN (17:15)
[2017-12-13] MEDS ORDERED: PATIENTS OWN MEDICATION (Ferrous Sulfate 325 MG) PO SCH (18:00)
[2017-12-13] MEDS: glipiZIDE 5 MG TAB PO SCH (18:03)
[2017-12-13] MEDS: BUMETANIDE 1 MG TAB PO SCH (18:03)
[2017-12-13] MEDS: FERROUS SULFATE 325 MG TAB PO SCH (18:03)
[2017-12-13] MEDS: SEVELAMER 800 MG TAB PO SCH (18:04)
[2017-12-13] MEDS: ACETAMINOPHEN 500 MG TAB PO PRN (19:55)
[2017-12-13 20:00] VITALS: BP 139/91
[2017-12-13 21:40] VITALS: BP 139/91
[2017-12-13] MEDS ORDERED: PATIENTS OWN MEDICATION (Glipizide 10 MG) PO SCH (22:00)
[2017-12-13] MEDS ORDERED: BUMETANIDE 2 MG PO SCH (22:00)
[2017-12-13] MEDS: ASCORBIC ACID 500 MG TAB PO SCH (22:47)
[2017-12-13] MEDS: ATORVASTATIN 20 MG TAB PO SCH (22:48)
[2017-12-13] MEDS: CARVEDILOL 3.125 MG TAB PO SCH (22:58)
[2017-12-14] VITALS (7 sets, daily range): BP systolic 103–160; BP diastolic 64–113
[2017-12-14] MEDS ORDERED: INFLUENZA QUAD 2018-2019 0.5 ML SYRG IM ONE (04:15)
[2017-12-14] MEDS: SODIUM CHLOR 0.9% PF (SALINE LOCK) 10ML VIAL/SYR IV SCH ×3 (06:08→22:19)
[2017-12-14] MEDS: BUMETANIDE 1 MG TAB PO SCH ×2 (06:10→17:43)
[2017-12-14] MEDS: glipiZIDE 5 MG TAB PO SCH ×2 (06:38→17:44)
[2017-12-14] MEDS: LEVOTHYROXINE SODIUM 50 MCG TAB PO SCH (06:39)
[2017-12-14] MEDS: InsuLIN REG 1unit/0.01ml Soln (100units/ml) SC SCH ×4 (07:00→22:00)
[2017-12-14] MEDS: ACCU-CHEK COMFORT CURVE STRIP VI SCH ×4 (07:00→22:13)
[2017-12-14] MEDS: FERROUS SULFATE 325 MG TAB PO SCH ×3 (08:26→17:41)
[2017-12-14] MEDS: SEVELAMER 800 MG TAB PO SCH ×3 (08:26→17:44)
[2017-12-14] MEDS: ASCORBIC ACID 500 MG TAB PO SCH ×2 (09:46→22:21)
[2017-12-14] MEDS: GABAPENTIN 300 MG CAP PO SCH (09:46)
[2017-12-14] MEDS: ASPirin-EC 81 mg tab PO SCH (09:47)
[2017-12-14] MEDS: ZINC SULFATE 220mg CAP or TAB PO SCH (09:47)
[2017-12-14] MEDS: CARVEDILOL 3.125 MG TAB PO SCH (09:47)
[2017-12-14] MEDS: NITROGLYCERIN 0.2MG/HR TOPICAL PATCH TD SCH (09:48)
[2017-12-14] MEDS: ENOXAPARIN SOD 40 MG/0.4 ML SYRINGE SC SCH (09:49)
[2017-12-14 09:51] LABS: Cholesterol 123 mg/dL (< 200); Triglycerides 375 mg/dL (< 150)
[2017-12-14 09:53] LABS: HDL Cholesterol 28 mg/dL (40-59); LDL Cholesterol 61 mg/dL (< 100)
[2017-12-14] MEDS: ACETAMINOPHEN 500 MG TAB PO PRN (09:54)
[2017-12-14] MEDS: Chlorthalidone 25 MG TAB PO SCH (09:55)
[2017-12-14] MEDS ORDERED: PATIENTS OWN MEDICATION (Nifedipine (Nifedipine Er) 1 TAB) PO SCH (10:00)
[2017-12-14] MEDS ORDERED: PATIENTS OWN MEDICATION (Simvastatin 1 TAB) PO SCH (10:00)
[2017-12-14] MEDS ORDERED: NIFEdipine ER 30 MG TAB PO SCH (10:00)
[2017-12-14] MEDS ORDERED: NIFEdipine ER 30 MG TAB PO ONE (10:15)
[2017-12-14] MEDS ORDERED: CARVEDILOL 3.125 MG TAB PO ONE (10:15)
[2017-12-14] MEDS: ATORVASTATIN 20 MG TAB PO SCH (22:19)
[2017-12-14] MEDS: CARVEDILOL 12.5 MG TAB PO SCH (22:20)
[2017-12-15 05:20] VITALS: BP 106/62
[2017-12-15] MEDS: BUMETANIDE 1 MG TAB PO SCH ×2 (06:00→17:44)
[2017-12-15] MEDS: InsuLIN REG 1unit/0.01ml Soln (100units/ml) SC SCH ×4 (06:13→21:47)
[2017-12-15] MEDS: ACCU-CHEK COMFORT CURVE STRIP VI SCH ×4 (06:14→21:47)
[2017-12-15] MEDS: SODIUM CHLOR 0.9% PF (SALINE LOCK) 10ML VIAL/SYR IV SCH ×3 (06:34→21:46)
[2017-12-15] MEDS: glipiZIDE 5 MG TAB PO SCH ×2 (06:38→17:44)
[2017-12-15] MEDS: LEVOTHYROXINE SODIUM 50 MCG TAB PO SCH (06:39)
[2017-12-15 09:00] VITALS: BP 131/73
[2017-12-15] MEDS: SEVELAMER 800 MG TAB PO SCH ×3 (09:28→17:45)
[2017-12-15] MEDS: FERROUS SULFATE 325 MG TAB PO SCH ×3 (09:29→17:42)
[2017-12-15] MEDS: ZINC SULFATE 220mg CAP or TAB PO SCH (09:29)
[2017-12-15] MEDS: GABAPENTIN 300 MG CAP PO SCH (09:29)
[2017-12-15] MEDS: ASCORBIC ACID 500 MG TAB PO SCH ×2 (09:29→21:47)
[2017-12-15] MEDS: ASPirin-EC 81 mg tab PO SCH (09:29)
[2017-12-15] MEDS: CARVEDILOL 12.5 MG TAB PO SCH ×2 (09:30→21:46)
[2017-12-15] MEDS: NIFEdipine ER 30 MG TAB PO SCH (09:31)
[2017-12-15] MEDS: NITROGLYCERIN 0.2MG/HR TOPICAL PATCH TD SCH (09:31)
[2017-12-15] MEDS: ENOXAPARIN SOD 40 MG/0.4 ML SYRINGE SC SCH (09:33)
[2017-12-15] MEDS: Chlorthalidone 25 MG TAB PO SCH (10:00)
[2017-12-15 17:00] VITALS: BP 119/69
[2017-12-15 20:00] VITALS: BP 125/64
[2017-12-15 21:30] VITALS: BP 125/64
[2017-12-15] MEDS: ATORVASTATIN 20 MG TAB PO SCH (21:47)
[2017-12-16 05:00] VITALS: BP 136/70
[2017-12-16] MEDS: BUMETANIDE 1 MG TAB PO SCH ×2 (06:25→17:56)
[2017-12-16] MEDS: SODIUM CHLOR 0.9% PF (SALINE LOCK) 10ML VIAL/SYR IV SCH ×3 (06:25→22:24)
[2017-12-16] MEDS: glipiZIDE 5 MG TAB PO SCH ×2 (06:25→18:01)
[2017-12-16] MEDS: LEVOTHYROXINE SODIUM 50 MCG TAB PO SCH (06:26)
[2017-12-16] MEDS: InsuLIN REG 1unit/0.01ml Soln (100units/ml) SC SCH ×4 (06:26→22:25)
[2017-12-16] MEDS: ACCU-CHEK COMFORT CURVE STRIP VI SCH ×4 (06:26→22:26)
[2017-12-16 07:41] VITALS: BP 129/68
[2017-12-16 08:00] VITALS: BP 129/68
[2017-12-16] MEDS: FERROUS SULFATE 325 MG TAB PO SCH ×3 (08:00→18:00)
[2017-12-16] MEDS: SEVELAMER 800 MG TAB PO SCH ×3 (08:00→17:51)
[2017-12-16] MEDS ORDERED: ADENOSINE 77 MG in GIVE UN-DILUTED 0 ML IV STA (08:18)
[2017-12-16] MEDS: Chlorthalidone 25 MG TAB PO SCH (10:00)
[2017-12-16] MEDS: NITROGLYCERIN 0.2MG/HR TOPICAL PATCH TD SCH (10:00)
[2017-12-16] MEDS: ASCORBIC ACID 500 MG TAB PO SCH ×2 (10:00→22:25)
[2017-12-16 10:45] VITALS: BP 134/65
[2017-12-16] MEDS: ZINC SULFATE 220mg CAP or TAB PO SCH (13:59)
[2017-12-16] MEDS: GABAPENTIN 300 MG CAP PO SCH (14:01)
[2017-12-16] MEDS: ASPirin-EC 81 mg tab PO SCH (14:01)
[2017-12-16] MEDS: CARVEDILOL 12.5 MG TAB PO SCH ×2 (14:01→22:25)
[2017-12-16] MEDS: NIFEdipine ER 30 MG TAB PO SCH (14:02)
[2017-12-16] MEDS: ENOXAPARIN SOD 40 MG/0.4 ML SYRINGE SC SCH (14:03)
[2017-12-16 16:30] VITALS: BP 163/79
[2017-12-16 20:00] VITALS: BP 141/71
[2017-12-16] MEDS: ATORVASTATIN 20 MG TAB PO SCH (22:25)
[2017-12-17] MEDS: ACETAMINOPHEN 500 MG TAB PO PRN (04:50)
[2017-12-17 05:00] VITALS: BP 123/65
[2017-12-17] MEDS: BUMETANIDE 1 MG TAB PO SCH (06:00)
[2017-12-17] MEDS: glipiZIDE 5 MG TAB PO SCH (06:11)
[2017-12-17] MEDS: SODIUM CHLOR 0.9% PF (SALINE LOCK) 10ML VIAL/SYR IV SCH ×2 (06:11→14:00)
[2017-12-17] MEDS: ACCU-CHEK COMFORT CURVE STRIP VI SCH ×2 (06:12→12:53)
[2017-12-17] MEDS: InsuLIN REG 1unit/0.01ml Soln (100units/ml) SC SCH ×2 (06:12→12:56)
[2017-12-17] MEDS: LEVOTHYROXINE SODIUM 50 MCG TAB PO SCH (07:00)
[2017-12-17 09:00] VITALS: BP_SYST 121; BP_SYST 122; BP_DIAS 64; BP_DIAS 68
[2017-12-17] MEDS: SEVELAMER 800 MG TAB PO SCH ×2 (09:38→12:45)
[2017-12-17] MEDS: FERROUS SULFATE 325 MG TAB PO SCH ×2 (09:38→12:45)
[2017-12-17] MEDS: NIFEdipine ER 30 MG TAB PO SCH (09:44)
[2017-12-17] MEDS: ZINC SULFATE 220mg CAP or TAB PO SCH (09:44)
[2017-12-17] MEDS: CARVEDILOL 12.5 MG TAB PO SCH (09:45)
[2017-12-17] MEDS: ASCORBIC ACID 500 MG TAB PO SCH (09:46)
[2017-12-17] MEDS: GABAPENTIN 300 MG CAP PO SCH (09:46)
[2017-12-17] MEDS: ASPirin-EC 81 mg tab PO SCH (09:47)
[2017-12-17] MEDS: ENOXAPARIN SOD 40 MG/0.4 ML SYRINGE SC SCH (09:47)
[2017-12-17] MEDS: Chlorthalidone 25 MG TAB PO SCH (09:47)
[2017-12-17] MEDS: NITROGLYCERIN 0.2MG/HR TOPICAL PATCH TD SCH (09:49)
[2017-12-17] MEDS ORDERED: INFLUENZA QUAD 2018-2019 0.5 ML SYRG IM ONE (11:00)
== END 2017-12-17 14:36 | disposition home health service (06) | DRG 291 ==
LOC: ER 07:47 → TELE-CENTR 07:48
PROVIDERS: ADMIT Internal Medicine; ATTEND Family Medicine
PROC: 5A1D70Z Performance of Urinary Filtration, Intermittent, Less than 6 Hours Per Day (ICD-10-PCS; principal; 2017-12-15)
DX: I13.2 Hypertensive heart and chronic kidney disease with heart failure and with stage 5 chronic kidney disease, or end stage renal disease (principal); N18.6 End stage renal disease; I50.43 Acute on chronic combined systolic (congestive) and diastolic (congestive) heart failure; I69.354 Hemiplegia and hemiparesis following cerebral infarction affecting left non-dominant side; N25.81 Secondary hyperparathyroidism of renal origin; D63.8 Anemia in other chronic diseases classified elsewhere; Z99.2 Dependence on renal dialysis; E11.22 Type 2 diabetes mellitus with diabetic chronic kidney disease; D63.1 Anemia in chronic kidney disease; Z88.8 Allergy status to other drugs, medicaments and biological substances; E03.9 Hypothyroidism, unspecified; E11.21 Type 2 diabetes mellitus with diabetic nephropathy; E11.42 Type 2 diabetes mellitus with diabetic polyneuropathy; E78.00 Pure hypercholesterolemia, unspecified; Z89.512 Acquired absence of left leg below knee; Z79.82 Long term (current) use of aspirin; Z79.899 Other long term (current) drug therapy
CPT/HCPCS: 36415; 71045; 80053; 80061; 82550; 82962; 83036; 83735; 83880; 84484; 85025; 85652; 86141; 90674; 90935; 93005; 93017; 93930; 94761; 96372; G0378; J0153; J1815

== ENCOUNTER 2018-02-26 06:29 | Inpatient (IN) | payer OTHER, MEDICAID | END 2018-03-01 17:28 | disposition home or self-care (01) | LOC: ER 06:29 → TELE 17:58 → TELE-WESTW 20:55 | DX: N17.9 Acute kidney failure, unspecified (principal); J96.00 Acute respiratory failure, unspecified whether with hypoxia or hypercapnia; J18.9 Pneumonia, unspecified organism; T82.41XA Breakdown (mechanical) of vascular dialysis catheter, initial encounter; I13.2 Hypertensive heart and chronic kidney disease with heart failure and with stage 5 chronic kidney disease, or end stage renal disease; J81.1 Chronic pulmonary edema; N18.6 End stage renal disease; R07.9 Chest pain, unspecified; I50.9 Heart failure, unspecified; I16.0 Hypertensive urgency; Z86.73 Personal history of transient ischemic attack (TIA), and cerebral infarction without residual deficits; E87.5 Hyperkalemia; D63.1 Anemia in chronic kidney disease ==

== ENCOUNTER 2018-05-20 09:33 | Emergency (ER) | payer OTHER, MEDICAID ==
[~2018-05-20] VITALS: Ht 165.1 cm; Wt 90.7 kg
[~2018-05-20 09:33] MED LIST changes: -ASCO500T11 PO; -ASPI-231 PO; +ASPI81CH43 PO; -BUME1TAB28 PO; +CAR125T PO; -CAR3125T PO; -CARV3.1240 PO; -CHLO25TA22 PO; +CHOL20007 PO; +CINA30TA2 PO; -ERGO2000 PO; -FERR-20 PO; -GLIP-116 PO; -LEVO50TA7 PO; -MECL-87 PO; -SIMV-13 PO; +SIMV40TA96 PO; -ZIN220C PO
[2018-05-20 09:45] VITALS: BP 134/57
[2018-05-20 12:18] LABS: Basophils # (auto) 0 uL; Basophils % (auto) 0.7 % (0.0-2.0); Eosinophils # (auto) 0.2 uL; Eosinophils % (auto) 2.5 % (0.0-7.0); Hematocrit 35.7 % (41.0-53.0); Hemoglobin 11.5 g/dL (13.5-17.5); Lymphocytes # (auto) 0.6 uL; Lymphocytes % (auto) 9.5 % (10.0-50.0); Mean Corpuscular Hemoglobin 29.7 pg (28.0-32.0); Mean Corpuscular Hgb Conc. 32.1 g/dL (32.0-36.0); Mean Corpuscular Volume 92.5 fL (80.0-100.0); Monocytes # (auto) 0.7 uL; Monocytes % (auto) 10.5 % (0.0-12.0); Neutrophils # (auto) 4.9 uL; Neutrophils % (auto) 76.8 % (37.0-80.0); Platelet Count (auto) 224 10^3/uL (140-450); Red Blood Cells 3.87 10^6/uL (4.5-5.90); Red Cell Distribution Width 14.3 % (11.8-14.3); White Blood Cell 6.4 10^3/uL (4.4-10.8)
[2018-05-20 12:43] LABS: INR 1.05 (0.9-1.15); Partial Thromboplastin Time 28.7 sec (23.78-33.04); Prothrombin Time 11.2 sec (9.27-12.13)
[2018-05-20 12:50] LABS: Albumin 3.5 g/dL (3.4-5.0); Calcium 7.7 mg/dL (8.5-10.1); Potassium 4.3 mmol/L (3.5-5.1)
[2018-05-20 12:55] LABS: Bilirubin, Total 0.5 mg/dL (0.2-1.0); Total Protein 8.5 g/dL (6.4-8.2)
[2018-05-20] MEDS ORDERED: FUROSEMIDE 40 MG TAB PO ONE (13:30)
== END 2018-05-20 18:30 | disposition left against medical advice (07) ==
LOC: ER 09:33
DX: R51 Headache (principal); R11.0 Nausea; T36.8X5A Adverse effect of other systemic antibiotics, initial encounter; E11.22 Type 2 diabetes mellitus with diabetic chronic kidney disease; I13.2 Hypertensive heart and chronic kidney disease with heart failure and with stage 5 chronic kidney disease, or end stage renal disease; I50.9 Heart failure, unspecified; N18.6 End stage renal disease; Z90.49 Acquired absence of other specified parts of digestive tract; Z88.8 Allergy status to other drugs, medicaments and biological substances; Z88.2 Allergy status to sulfonamides; Z79.82 Long term (current) use of aspirin; Z79.899 Other long term (current) drug therapy; Z86.73 Personal history of transient ischemic attack (TIA), and cerebral infarction without residual deficits; Y92.89 Other specified places as the place of occurrence of the external cause
CPT/HCPCS: 36415; 80053; 83880; 84484; 85025; 85610; 85730; 93005

== ENCOUNTER 2018-05-21 11:12 | Emergency (ER) | payer OTHER, MEDICAID ==
[~2018-05-21] VITALS: Ht 165.1 cm; Wt 90.7 kg
[2018-05-21 11:45] VITALS: BP 152/79
== END 2018-05-21 13:37 | disposition home or self-care (01) ==
LOC: ER 11:12
DX: S91.104A Unspecified open wound of right lesser toe(s) without damage to nail, initial encounter (principal); E11.22 Type 2 diabetes mellitus with diabetic chronic kidney disease; I13.2 Hypertensive heart and chronic kidney disease with heart failure and with stage 5 chronic kidney disease, or end stage renal disease; I50.9 Heart failure, unspecified; N18.6 End stage renal disease; Z86.73 Personal history of transient ischemic attack (TIA), and cerebral infarction without residual deficits; Z88.6 Allergy status to analgesic agent; X58.XXXA Exposure to other specified factors, initial encounter; Y93.89 Activity, other specified; Y92.89 Other specified places as the place of occurrence of the external cause; Y99.8 Other external cause status
CPT/HCPCS: 73660; 82962

== ENCOUNTER 2018-06-08 05:56 | Emergency (ER) | payer OTHER, MEDICAID ==
[~2018-06-08] VITALS: Ht 165.1 cm; Wt 93.0 kg
[2018-06-08 07:12] LABS: Basophils # (auto) 0 uL; Eosinophils # (auto) 0.2 uL; Eosinophils % (auto) 4.2 % (0.0-7.0); Hemoglobin 12.2 g/dL (13.5-17.5); Lymphocytes # (auto) 0.8 uL; Lymphocytes % (auto) 15.2 % (10.0-50.0); Mean Corpuscular Hemoglobin 29.9 pg (28.0-32.0); Mean Corpuscular Hgb Conc. 32.9 g/dL (32.0-36.0); Mean Corpuscular Volume 91.2 fL (80.0-100.0); Monocytes # (auto) 0.7 uL; Neutrophils # (auto) 3.2 uL; Neutrophils % (auto) 64.6 % (37.0-80.0); Nucleated Red Blood Cells % 0.1 %; Platelet Count (auto) 168 10^3/uL (140-450); Red Blood Cells 4.06 10^6/uL (4.5-5.90)
[2018-06-08 07:24] LABS: Albumin 3.6 g/dL (3.4-5.0); Calcium 6.7 mg/dL (8.5-10.1); Potassium 5.3 mmol/L (3.5-5.1)
[2018-06-08 07:27] LABS: BUN/Creatinine Ratio 7.1; Bilirubin, Total 0.5 mg/dL (0.2-1.0); Total Protein 8.3 g/dL (6.4-8.2)
[2018-06-08] MEDS ORDERED: MORPHINE SULF INJ 2 MG/ML SYRINGE 1ML IM ONE (09:45)
[2018-06-08] MEDS ORDERED: PROMETHAZINE HCL 25 MG/ML 1ML IM ONE (09:45)
[2018-06-08 11:30] VITALS: BP 131/77
[2018-06-08] MEDS ORDERED: CALCIUM CARB 500 MG CHEW TAB PO ONE (12:15)
== END 2018-06-08 12:32 | disposition home or self-care (01) ==
LOC: ER 05:56
DX: M54.6 Pain in thoracic spine (principal); G89.29 Other chronic pain; E83.51 Hypocalcemia; E87.5 Hyperkalemia; E11.22 Type 2 diabetes mellitus with diabetic chronic kidney disease; I13.2 Hypertensive heart and chronic kidney disease with heart failure and with stage 5 chronic kidney disease, or end stage renal disease; I50.9 Heart failure, unspecified; N18.6 End stage renal disease; Z99.2 Dependence on renal dialysis; Z79.82 Long term (current) use of aspirin; Z86.73 Personal history of transient ischemic attack (TIA), and cerebral infarction without residual deficits; Z90.49 Acquired absence of other specified parts of digestive tract; Z89.519 Acquired absence of unspecified leg below knee
CPT/HCPCS: 36415; 74176; 80053; 82150; 83690; 85025; 96372; 99284; J2270; J2550

== ENCOUNTER 2018-11-07 10:01 | Emergency (ER) | payer OTHER, MEDICAID ==
[~2018-11-07] VITALS: Ht 165.1 cm; Wt 90.7 kg
[2018-11-07] MEDS ORDERED: MECLIZINE HCL 25 MG TAB PO ONE (10:30)
[2018-11-07 10:42] LABS: Basophils # (auto) 0 uL; Basophils % (auto) 0.9 % (0.0-2.0); Eosinophils # (auto) 0.1 uL; Eosinophils % (auto) 1.3 % (0.0-7.0); Hematocrit 36.3 % (41.0-53.0); Hemoglobin 12.1 g/dL (13.5-17.5); Lymphocytes # (auto) 0.5 uL; Lymphocytes % (auto) 8.7 % (10.0-50.0); Mean Corpuscular Hemoglobin 31.1 pg (28.0-32.0); Mean Corpuscular Hgb Conc. 33.2 g/dL (32.0-36.0); Mean Corpuscular Volume 93.6 fL (80.0-100.0); Monocytes # (auto) 0.5 uL; Monocytes % (auto) 8.7 % (0.0-12.0); Neutrophils # (auto) 4.2 uL; Neutrophils % (auto) 80.4 % (37.0-80.0); Platelet Count (auto) 163 10^3/uL (140-450); Red Blood Cells 3.88 10^6/uL (4.5-5.90); Red Cell Distribution Width 15.2 % (11.8-14.3); White Blood Cell 5.2 10^3/uL (4.4-10.8)
[2018-11-07 11:04] LABS: Albumin 3.9 g/dL (3.4-5.0); Calcium 8.5 mg/dL (8.5-10.1); Magnesium 2.6 mg/dL (1.6-2.6); Potassium 4.3 mmol/L (3.5-5.1)
[2018-11-07 11:10] LABS: BUN/Creatinine Ratio 7.3; Bilirubin, Total 0.6 mg/dL (0.2-1.0); Total Protein 9.2 g/dL (6.4-8.2)
[2018-11-07 14:03] VITALS: BP 138/78
== END 2018-11-07 14:41 | disposition home or self-care (01) ==
LOC: EDBD 10:01 → ER 10:02
DX: E11.22 Type 2 diabetes mellitus with diabetic chronic kidney disease (principal); I12.0 Hypertensive chronic kidney disease with stage 5 chronic kidney disease or end stage renal disease; N18.6 End stage renal disease; D63.1 Anemia in chronic kidney disease; Z99.2 Dependence on renal dialysis; Z79.4 Long term (current) use of insulin; Z88.2 Allergy status to sulfonamides; Z86.73 Personal history of transient ischemic attack (TIA), and cerebral infarction without residual deficits
CPT/HCPCS: 36415; 80053; 83735; 84484; 85025; 93005; 99284; J8597

== ENCOUNTER 2019-08-02 19:06 | Inpatient (IN) | payer MEDICARE, MEDICAID ==
[~2019-08-02] VITALS: Ht 162.6 cm; Wt 105.7 kg
[~2019-08-02 19:06] MED LIST changes: +NIFE1TAB31 PO; -NIFE30TA76 PO
[2019-08-02] MEDS ORDERED: SODIUM CHLORIDE 0.9% 500 ML IV ONE (20:30)
[2019-08-02 21:19] LABS: Basophils # (auto) 0.1 10 ^3/uL (0-0.2); Basophils % (auto) 0.9 % (0.0-2.0); Eosinophils # (auto) 0.1 10 ^3/uL (0-0.8); Eosinophils % (auto) 2.1 % (0.0-7.0); Hematocrit 31.8 % (41.0-53.0); Hemoglobin 10.5 g/dL (13.5-17.5); Lymphocytes # (auto) 0.9 10 ^3/uL (0.4-5.4); Lymphocytes % (auto) 13.4 % (10.0-50.0); Mean Corpuscular Hemoglobin 31.9 pg (28.0-32.0); Mean Corpuscular Hgb Conc. 32.9 g/dL (32.0-36.0); Mean Corpuscular Volume 97.1 fL (80.0-100.0); Monocytes # (auto) 0.6 10 ^3/uL (0-1.3); Monocytes % (auto) 9.8 % (0.0-12.0); Neutrophils # (auto) 4.9 10 ^3/uL (1.6-8.6); Neutrophils % (auto) 73.8 % (37.0-80.0); Nucleated Red Blood Cells % 0.1 %; Platelet Count (auto) 188 10^3/uL (140-450); Red Blood Cells 3.28 10^6/uL (4.5-5.90); Red Cell Distribution Width 17.1 % (11.8-14.3); White Blood Cell 6.6 10^3/uL (4.4-10.8)
[2019-08-02 21:42] LABS: Albumin 3.2 g/dL (3.4-5.0); Calcium 7.6 mg/dL (8.5-10.1)
[2019-08-02 21:47] LABS: BUN/Creatinine Ratio 7.2; Bilirubin, Total 0.3 mg/dL (0.2-1.0); Total Protein 7.6 g/dL (6.4-8.2)
[2019-08-02] MEDS ORDERED: NOREPINEPHRINE 8 MG/250ML KIT 250 ML IV SCH (22:15)
[2019-08-02] MEDS ORDERED: NITROGLYCERIN 0.4 MG SL TAB SL PRN (23:45)
[2019-08-02] MEDS ORDERED: DOCUSATE SOD 100 MG CAP PO PRN (23:45)
[2019-08-02] MEDS ORDERED: ONDANSETRON HCL 4 MG/2 ML VIAL IV PRN (23:45)
[2019-08-02] MEDS ORDERED: DEXTROSE (50%) 50ML SYRG IV PRN (23:45)
[2019-08-02] MEDS ORDERED: MORPHINE SULF INJ 2 MG/ML SYRINGE 1ML IV PRN ×2 (23:45)
[2019-08-02] MEDS ORDERED: ACETAMINOPHEN 325 MG TAB PO PRN (23:45)
[2019-08-02] MEDS ORDERED: HYDROcodone-ACET 5/325MG TAB PO PRN (23:45)
[2019-08-03] MEDS: ACCU-CHEK COMFORT CURVE STRIP VI SCH ×3 (01:23→12:44)
[2019-08-03] MEDS: InsuLIN REG 1unit/0.01ml Soln (100units/ml) SC SCH ×3 (01:25→12:44)
[2019-08-03] MEDS: GABAPENTIN 300 MG CAP PO SCH ×2 (06:19→15:13)
[2019-08-03 06:20] LABS: Calcium 7.7 mg/dL (8.5-10.1); Potassium 4.7 mmol/L (3.5-5.1)
[2019-08-03 06:44] LABS: Basophils # (auto) 0.1 10 ^3/uL (0-0.2); Eosinophils # (auto) 0.1 10 ^3/uL (0-0.8); Eosinophils % (auto) 1.2 % (0.0-7.0); Hematocrit 33.2 % (41.0-53.0); Hemoglobin 10.8 g/dL (13.5-17.5); Lymphocytes % (auto) 13.4 % (10.0-50.0); Mean Corpuscular Hemoglobin 31.6 pg (28.0-32.0); Mean Corpuscular Hgb Conc. 32.7 g/dL (32.0-36.0); Mean Corpuscular Volume 96.7 fL (80.0-100.0); Monocytes # (auto) 0.7 10 ^3/uL (0-1.3); Monocytes % (auto) 10.1 % (0.0-12.0); Neutrophils # (auto) 5.3 10 ^3/uL (1.6-8.6); Neutrophils % (auto) 74.3 % (37.0-80.0); Platelet Count (auto) 197 10^3/uL (140-450); Red Blood Cells 3.43 10^6/uL (4.5-5.90); Red Cell Distribution Width 16.9 % (11.8-14.3); White Blood Cell 7.1 10^3/uL (4.4-10.8)
[2019-08-03] MEDS: SEVELAMER 800 MG TAB PO SCH ×2 (08:39→13:08)
[2019-08-03] MEDS ORDERED: SODIUM CHL 0.9% 1000 ML BAG XX ONE (10:00)
[2019-08-03] MEDS ORDERED: CINACALCET HYDROCHLORIDE 30 MG TAB PO SCH (10:00)
[2019-08-03] MEDS ORDERED: MIDODRINE HCL 10 MG TAB PO ONE (10:00)
[2019-08-03] MEDS ORDERED: ASPirin 81 mg TAB PO SCH (10:00)
[2019-08-03 10:34] LABS: Phosphorus 5.3 mg/dL (2.5-4.90); Uric Acid 7.7 mg/dL (3.5-7.2)
[2019-08-03] MEDS ORDERED: MORPHINE SULF INJ 2 MG/ML SYRINGE 1ML IV PRN (14:00)
[2019-08-03] MEDS ORDERED: DEXTROSE (50%) 50ML SYRG IV PRN (14:00)
[2019-08-03] MEDS ORDERED: InsuLIN REG 1unit/0.01ml Soln (100units/ml) SC SCH (17:00)
[2019-08-03] MEDS ORDERED: ACCU-CHEK COMFORT CURVE STRIP VI SCH (17:00)
[2019-08-03 17:47] VITALS: BP 124/51
[2019-08-03] MEDS ORDERED: EPOETIN ALFA 4,000 UNIT/ML VL SC ONE (21:00)
[2019-08-03] MEDS ORDERED: ATORVASTATIN 20 MG TAB PO SCH (22:00)
== END 2019-08-03 18:19 | disposition left against medical advice (07) | DRG 917 ==
LOC: EDBD 19:06 → ER 19:06 → OVERFLOW 19:07
PROVIDERS: ADMIT Hospitalist; ATTEND Internal Medicine
PROC: 5A1D70Z Performance of Urinary Filtration, Intermittent, Less than 6 Hours Per Day (ICD-10-PCS; principal; 2019-08-03)
DX: T46.1X1A Poisoning by calcium-channel blockers, accidental (unintentional), initial encounter (principal); N18.6 End stage renal disease; I50.32 Chronic diastolic (congestive) heart failure; I13.2 Hypertensive heart and chronic kidney disease with heart failure and with stage 5 chronic kidney disease, or end stage renal disease; Z68.41 Body mass index [BMI] 40.0-44.9, adult; D63.8 Anemia in other chronic diseases classified elsewhere; E78.5 Hyperlipidemia, unspecified; E11.22 Type 2 diabetes mellitus with diabetic chronic kidney disease; E11.51 Type 2 diabetes mellitus with diabetic peripheral angiopathy without gangrene; E66.01 Morbid (severe) obesity due to excess calories; Z53.29 Procedure and treatment not carried out because of patient's decision for other reasons; Z86.73 Personal history of transient ischemic attack (TIA), and cerebral infarction without residual deficits; Z99.2 Dependence on renal dialysis; Z90.49 Acquired absence of other specified parts of digestive tract; Z89.512 Acquired absence of left leg below knee; Z88.8 Allergy status to other drugs, medicaments and biological substances; Y92.89 Other specified places as the place of occurrence of the external cause; I95.2 Hypotension due to drugs
CPT/HCPCS: 36415; 80048; 80053; 82306; 82962; 83036; 83970; 84100; 84484; 84550; 85025; 90935; 93005; 96374; 96375; G0378; J1642; J1815

== ENCOUNTER 2020-06-20 11:17 | Emergency (ER) | payer MEDICARE, MEDICAID ==
[~2020-06-20] VITALS: Ht 162.6 cm; Wt 104.3 kg
[~2020-06-20 11:17] MED LIST changes: +SIMV40TA2 PO; -SIMV40TA96 PO
[2020-06-20 12:30] VITALS: BP 133/57
== END 2020-06-20 13:04 | disposition home or self-care (01) ==
LOC: EDUNIT# 11:17 → EDBD 11:17 → ER 11:17
DX: S30.0XXA Contusion of lower back and pelvis, initial encounter (principal); S37.92XA Contusion of unspecified urinary and pelvic organ, initial encounter; E11.22 Type 2 diabetes mellitus with diabetic chronic kidney disease; I12.0 Hypertensive chronic kidney disease with stage 5 chronic kidney disease or end stage renal disease; N18.6 End stage renal disease; E78.5 Hyperlipidemia, unspecified; Z88.2 Allergy status to sulfonamides; Z86.73 Personal history of transient ischemic attack (TIA), and cerebral infarction without residual deficits; W18.39XA Other fall on same level, initial encounter; Y93.89 Activity, other specified; Y92.89 Other specified places as the place of occurrence of the external cause; Y99.8 Other external cause status
CPT/HCPCS: 72170

== ENCOUNTER 2020-08-24 12:22 | Emergency (ER) | payer MEDICARE, MEDICAID ==
[~2020-08-24] VITALS: Ht 162.6 cm; Wt 104.3 kg
[2020-08-24] MEDS ORDERED: KETOROLAC TROMETH 60MG/2ML VIAL IM ONE (14:45)
[2020-08-24 15:18] VITALS: BP 107/49
== END 2020-08-24 15:50 | disposition home or self-care (01) ==
LOC: ER 12:22
DX: S22.41XA Multiple fractures of ribs, right side, initial encounter for closed fracture (principal); E11.22 Type 2 diabetes mellitus with diabetic chronic kidney disease; I12.0 Hypertensive chronic kidney disease with stage 5 chronic kidney disease or end stage renal disease; N18.6 End stage renal disease; E78.5 Hyperlipidemia, unspecified; Z86.73 Personal history of transient ischemic attack (TIA), and cerebral infarction without residual deficits; W01.0XXA Fall on same level from slipping, tripping and stumbling without subsequent striking against object, initial encounter; Y93.89 Activity, other specified; Y92.89 Other specified places as the place of occurrence of the external cause; Y99.8 Other external cause status
CPT/HCPCS: 71101; 96372; 99283; J1885

== ENCOUNTER 2022-11-20 14:47 | Inpatient (IN) | payer OTHER, MEDICARE, MEDICAID ==
[~2022-11-20] VITALS: Ht 162.6 cm; Wt 98.0 kg
[~2022-11-20 14:47] MED LIST changes: +GABA-1250 PO; -GABA300C10 PO; -SIMV40TA2 PO; +SIMV40TA42 PO
[2022-11-20] MEDS ORDERED: PIPERACILLIN-TAZOB 3.375GM 100 ML IV ONE (15:15)
[2022-11-20 15:56] VITALS: PULSE 107; RESP 18; O2SAT 98
[2022-11-20 16:14] LABS: Basophils # (auto) 0 10 ^3/uL (0-0.2); Basophils % (auto) 0.3 % (0.0-2.0); Eosinophils # (auto) 0 10 ^3/uL (0-0.8); Hematocrit 36.7 % (41.0-53.0); Hemoglobin 12.3 g/dL (13.5-17.5); Lymphocytes # (auto) 0.3 10 ^3/uL (0.4-5.4); Mean Corpuscular Hemoglobin 31.7 pg (28.0-32.0); Mean Corpuscular Hgb Conc. 33.5 g/dL (32.0-36.0); Mean Corpuscular Volume 94.8 fL (80.0-100.0); Monocytes # (auto) 0.7 10 ^3/uL (0-1.3); Monocytes % (auto) 9.2 % (0.0-12.0); Neutrophils # (auto) 6.8 10 ^3/uL (1.6-8.6); Neutrophils % (auto) 86.5 % (37.0-80.0); Nucleated Red Blood Cells % 0.1 %; Red Blood Cells 3.87 10^6/uL (4.5-5.90); Red Cell Distribution Width 13.9 % (11.8-14.3); White Blood Cell 7.9 10^3/uL (4.4-10.8)
[2022-11-20 16:28] LABS: INR 1.09 (0.9-1.15); Partial Thromboplastin Time 31.8 SEC (24.5-34.5); Prothrombin Time 11.4 sec (9.3-11.8)
[2022-11-20 16:44] LABS: Alanine Aminotransferase 32 U/L (7-40); Albumin 4.4 g/dL (3.2-4.8); Alkaline Phosphatase 156 U/L (46-116); Anion Gap 15 (5-15); Aspartate Aminotransferase 27 U/L (13-40); BUN/Creatinine Ratio 5.5 (10.0-20.0); Bilirubin, Total 0.3 mg/dL (0.2-1.0); Blood Urea Nitrogen 53 mg/dL (9-23); Carbon Dioxide 25 mmol/L (20-30); Chloride 87 mmol/L (98-107); Glucose 95 mg/dL (74-106); Potassium 4.6 mmol/L (3.5-5.1); Sodium 127 mmol/L (136-145); Total Protein 7.4 g/dL (5.7-8.2)
[2022-11-20] MEDS ORDERED: ENOXAPARIN SOD 100 MG/1 ML SYRINGE SC SCH (18:51)
[2022-11-20] MEDS ORDERED: MORPHINE SULFATE INJ 2 MG/ml SYRG IV PRN (19:00)
[2022-11-20] MEDS ORDERED: DEXTROSE (50%) 50ML SYRG IV PRN (19:00)
[2022-11-20] MEDS ORDERED: NITROGLYCERIN 0.4 MG SL TAB SL PRN (19:00)
[2022-11-20 19:49] LABS: Triglycerides 202 mg/dL (< 150)
[2022-11-20 19:50] LABS: LDL Cholesterol 37 mg/dL (< 100)
[2022-11-20 19:51] LABS: Cholesterol 96 mg/dL (< 200); HDL Cholesterol 23 mg/dL (40-59)
[2022-11-20 19:55] VITALS: PULSE 98; RESP 13; O2SAT 95
[2022-11-20] MEDS: HYDROcodone-ACET 5/325MG TAB PO PRN (20:50)
[2022-11-20] MEDS: ACETAMINOPHEN 325 MG TAB PO PRN (20:50)
[2022-11-20] MEDS: InsuLIN REG 1unit/0.01ml Soln (100units/ml) SC SCH (22:00)
[2022-11-20] MEDS: ACCU-CHEK COMFORT CURVE STRIP VI SCH (22:00)
[2022-11-20 22:30] VITALS: BP 89/39; PULSE 99; RESP 18; TEMP 101.8; O2SAT 100
[2022-11-20] MEDS ORDERED: SODIUM CHLORIDE 0.9% 2,900 ML IV ONE (23:15)
[2022-11-20 23:59] VITALS: BP 89/39; PULSE 99; RESP 18; TEMP 101.8; O2SAT 100
[2022-11-21] VITALS (7 sets, daily range): BP systolic 108–173; BP diastolic 51–88; PULSE 80–108; RESP 18–22; TEMP 98.4–101.1; O2SAT 90–100
[2022-11-21] MEDS: HYDROcodone-ACET 5/325MG TAB PO PRN (04:38)
[2022-11-21 05:49] LABS: Basophils # (auto) 0 10 ^3/uL (0-0.2); Basophils % (auto) 0.4 % (0.0-2.0); Eosinophils # (auto) 0 10 ^3/uL (0-0.8); Hematocrit 36.2 % (41.0-53.0); Hemoglobin 12.2 g/dL (13.5-17.5); Lymphocytes # (auto) 0.6 10 ^3/uL (0.4-5.4); Lymphocytes % (auto) 7.8 % (10.0-50.0); Mean Corpuscular Hemoglobin 31.9 pg (28.0-32.0); Mean Corpuscular Hgb Conc. 33.9 g/dL (32.0-36.0); Mean Corpuscular Volume 94.3 fL (80.0-100.0); Monocytes # (auto) 0.8 10 ^3/uL (0-1.3); Monocytes % (auto) 10.6 % (0.0-12.0); Neutrophils # (auto) 5.8 10 ^3/uL (1.6-8.6); Neutrophils % (auto) 81.2 % (37.0-80.0); Nucleated Red Blood Cells % 0.1 %; Red Blood Cells 3.84 10^6/uL (4.5-5.90); White Blood Cell 7.1 10^3/uL (4.4-10.8)
[2022-11-21 06:03] LABS: Alanine Aminotransferase 26 U/L (7-40); Albumin 4.4 g/dL (3.2-4.8); Alkaline Phosphatase 142 U/L (46-116); Anion Gap 17 (5-15); Aspartate Aminotransferase 24 U/L (13-40); BUN/Creatinine Ratio 4.6 (10.0-20.0); Bilirubin, Total 0.3 mg/dL (0.2-1.0); Blood Urea Nitrogen 51 mg/dL (9-23); Calcium 9.1 mg/dL (8.5-10.1); Carbon Dioxide 23 mmol/L (20-30); Chloride 88 mmol/L (98-107); Glucose 85 mg/dL (74-106); Potassium 4.5 mmol/L (3.5-5.1); Sodium 128 mmol/L (136-145); Total Protein 7.6 g/dL (5.7-8.2)
[2022-11-21] MEDS: ACCU-CHEK COMFORT CURVE STRIP VI SCH ×4 (06:22→21:10)
[2022-11-21] MEDS: InsuLIN REG 1unit/0.01ml Soln (100units/ml) SC SCH ×4 (06:25→21:09)
[2022-11-21] MEDS: ACETAMINOPHEN 325 MG TAB PO PRN ×2 (08:36→16:57)
[2022-11-21] MEDS ORDERED: HEPARIN DRIP/D5W 100UNITS/ML 250 ML IV SCH ×2 (11:45→21:30)
[2022-11-21] MEDS ORDERED: HEPARIN SODIUM (PORCINE) 5000 UNITS/ML 1ML VIAL IV ONE (11:45)
[2022-11-21] MEDS ORDERED: cefTRIAXone 1GM/50ML D5W 50 ML IV ONE (12:00)
[2022-11-21 12:16] LABS: Basophils # (auto) 0 10 ^3/uL (0-0.2); Basophils % (auto) 0.4 % (0.0-2.0); Eosinophils # (auto) 0 10 ^3/uL (0-0.8); Hemoglobin 11.9 g/dL (13.5-17.5); Lymphocytes # (auto) 0.6 10 ^3/uL (0.4-5.4); Lymphocytes % (auto) 8.6 % (10.0-50.0); Mean Corpuscular Hemoglobin 31.6 pg (28.0-32.0); Mean Corpuscular Hgb Conc. 33.1 g/dL (32.0-36.0); Mean Corpuscular Volume 95.4 fL (80.0-100.0); Monocytes # (auto) 0.8 10 ^3/uL (0-1.3); Monocytes % (auto) 10.8 % (0.0-12.0); Neutrophils % (auto) 80.2 % (37.0-80.0); Red Blood Cells 3.77 10^6/uL (4.5-5.90); Red Cell Distribution Width 13.9 % (11.8-14.3); White Blood Cell 7.5 10^3/uL (4.4-10.8)
[2022-11-21 12:32] LABS: INR 1.17 (0.9-1.15); Partial Thromboplastin Time 40.4 SEC (24.5-34.5); Prothrombin Time 12.2 sec (9.3-11.8)
[2022-11-21 15:58] LABS: COVID19 ANTIGEN SOFIA FIA NEGATIVE (NEGATIVE)
[2022-11-21] MEDS ORDERED: CARVEDILOL 12.5 MG TAB PO ONE (16:30)
[2022-11-21] MEDS: SEVELAMER 800 MG TAB PO SCH (18:16)
[2022-11-21 20:08] LABS: INR 1.19 (0.9-1.15); Prothrombin Time 12.4 sec (9.3-11.8)
[2022-11-21 20:18] LABS: Partial Thromboplastin Time 107.4 SEC (24.5-34.5)
[2022-11-21] MEDS: ATORVASTATIN 20 MG TAB PO SCH (21:06)
[2022-11-21] MEDS: GABAPENTIN 300 MG CAP PO SCH (21:06)
[2022-11-22] VITALS (10 sets, daily range): BP systolic 107–165; BP diastolic 58–98; PULSE 70–81; RESP 17–22; TEMP 97.9–98.4; O2SAT 94–100
[2022-11-22] MEDS: CARVEDILOL 12.5 MG TAB PO SCH ×2 (05:00→18:53)
[2022-11-22 05:10] LABS: INR 1.1 (0.9-1.15); Prothrombin Time 11.5 sec (9.3-11.8)
[2022-11-22 05:15] LABS: Partial Thromboplastin Time 86.1 SEC (24.5-34.5)
[2022-11-22] MEDS ORDERED: HEPARIN DRIP/D5W 100UNITS/ML 250 ML IV SCH (05:30)
[2022-11-22] MEDS: InsuLIN REG 1unit/0.01ml Soln (100units/ml) SC SCH ×4 (05:58→21:41)
[2022-11-22] MEDS: glipiZIDE 5 MG TAB PO SCH (05:58)
[2022-11-22] MEDS: ACCU-CHEK COMFORT CURVE STRIP VI SCH ×4 (05:59→21:54)
[2022-11-22] MEDS ORDERED: SODIUM CHL 0.9% 1000 ML BAG XX ONE (07:00)
[2022-11-22] MEDS: GABAPENTIN 300 MG CAP PO SCH (08:58)
[2022-11-22] MEDS: CHOLECALCIFEROL (VITD3) 2,000 UNIT CAP/TAB PO SCH (08:58)
[2022-11-22] MEDS: ASPirin 81 mg TAB PO SCH (08:58)
[2022-11-22] MEDS: SEVELAMER 800 MG TAB PO SCH ×3 (08:58→18:52)
[2022-11-22] MEDS: cefTRIAXone 1GM/50ML D5W 50 ML IV SCH (08:58)
[2022-11-22 14:46] LABS: Hematocrit 34.3 % (41.0-53.0); Hemoglobin 11.2 g/dL (13.5-17.5); Mean Corpuscular Hemoglobin 31.6 pg (28.0-32.0); Mean Corpuscular Hgb Conc. 32.8 g/dL (32.0-36.0); Mean Corpuscular Volume 96.2 fL (80.0-100.0); Red Blood Cells 3.56 10^6/uL (4.5-5.90); Red Cell Distribution Width 14.3 % (11.8-14.3); White Blood Cell 4.8 10^3/uL (4.4-10.8)
[2022-11-22 14:49] LABS: Basophils % (manual) 0 (0.0-2.0); Blast Cells 0; Metamyelocytes % 0; Myelocytes % 0; Promyelocytes % 0; Reactive Lymphocytes 0
[2022-11-22 14:57] LABS: INR 1.07 (0.9-1.15); Partial Thromboplastin Time 55.6 SEC (24.5-34.5); Prothrombin Time 11.2 sec (9.3-11.8)
[2022-11-22 17:03] LABS: Band Neutrophils % (manual) 1; Lymphocytes % (manual) 15 (10.0-50.0); Monocytes % (manual) 12 (0-12)
[2022-11-22 17:04] LABS: Anisocytosis Slight; Eosinophils % (manual) 2 (0-7); Hypochromia Slight; Platelet Estimate Decreased
[2022-11-22] MEDS: HYDROcodone-ACET 5/325MG TAB PO PRN (19:46)
[2022-11-22 20:59] LABS: INR 1.05 (0.9-1.15); Partial Thromboplastin Time 57.4 SEC (24.5-34.5)
[2022-11-22] MEDS ORDERED: MELATONIN 5 MG TAB PO PRN (21:30)
[2022-11-22] MEDS ORDERED: HYDROcodone-ACET 10/325MG TAB PO ONE (21:30)
[2022-11-22] MEDS: ATORVASTATIN 20 MG TAB PO SCH (21:52)
[2022-11-23] VITALS (9 sets, daily range): BP systolic 136–164; BP diastolic 68–98; PULSE 60–98; RESP 18–24; TEMP 97.7–98.7; O2SAT 75–100
[2022-11-23] MEDS: HYDROcodone-ACET 5/325MG TAB PO PRN ×3 (02:31→21:48)
[2022-11-23 03:02] LABS: INR 1.08 (0.9-1.15); Prothrombin Time 11.3 sec (9.3-11.8)
[2022-11-23 03:05] LABS: Partial Thromboplastin Time > 139.0 SEC (24.5-34.5)
[2022-11-23] MEDS ORDERED: HEPARIN DRIP/D5W 100UNITS/ML 250 ML IV SCH ×2 (04:15→12:50)
[2022-11-23] MEDS: InsuLIN REG 1unit/0.01ml Soln (100units/ml) SC SCH ×4 (05:02→22:00)
[2022-11-23] MEDS: ACCU-CHEK COMFORT CURVE STRIP VI SCH ×4 (05:48→22:11)
[2022-11-23] MEDS: glipiZIDE 5 MG TAB PO SCH (06:03)
[2022-11-23] MEDS: CARVEDILOL 12.5 MG TAB PO SCH ×2 (06:04→18:19)
[2022-11-23] MEDS: SEVELAMER 800 MG TAB PO SCH ×3 (10:20→18:19)
[2022-11-23] MEDS: CHOLECALCIFEROL (VITD3) 2,000 UNIT CAP/TAB PO SCH (10:20)
[2022-11-23] MEDS: ASPirin 81 mg TAB PO SCH (10:20)
[2022-11-23] MEDS: GABAPENTIN 300 MG CAP PO SCH (10:21)
[2022-11-23] MEDS: cefTRIAXone 1GM/50ML D5W 50 ML IV SCH (10:21)
[2022-11-23 11:44] LABS: INR 1.11 (0.9-1.15); Prothrombin Time 11.6 sec (9.3-11.8)
[2022-11-23 11:47] LABS: Partial Thromboplastin Time 118.9 SEC (24.5-34.5)
[2022-11-23] MEDS ORDERED: hydrALAZINE HCL 20 MG/ML VL IV PRN (17:15)
[2022-11-23] MEDS: ATORVASTATIN 20 MG TAB PO SCH (21:47)
[2022-11-23] MEDS: IPRATROPIUM BROM 0.5 MG/2.5ML INH SOL NEB PRN (22:07)
[2022-11-23] MEDS: ALBUTEROL SULF 2.5 MG/0.5ML(0.5%) NEB SOLN NEB PRN (22:07)
[2022-11-23 22:19] LABS: INR 1.25 (0.9-1.15); Partial Thromboplastin Time 47.1 SEC (24.5-34.5); Prothrombin Time 12.9 sec (9.3-11.8)
[2022-11-24] VITALS (9 sets, daily range): BP systolic 150–180; BP diastolic 39–86; PULSE 65–96; RESP 16–24; TEMP 97.9–98.6; O2SAT 75–100
[2022-11-24] MEDS ORDERED: HEPARIN DRIP/D5W 100UNITS/ML 250 ML IV SCH (01:00)
[2022-11-24] MEDS: HYDROcodone-ACET 5/325MG TAB PO PRN ×2 (03:20→10:07)
[2022-11-24] MEDS: CARVEDILOL 12.5 MG TAB PO SCH ×2 (05:37→17:00)
[2022-11-24] MEDS: InsuLIN REG 1unit/0.01ml Soln (100units/ml) SC SCH ×3 (05:48→17:00)
[2022-11-24] MEDS: ACCU-CHEK COMFORT CURVE STRIP VI SCH ×3 (05:48→17:35)
[2022-11-24] MEDS: glipiZIDE 5 MG TAB PO SCH (07:00)
[2022-11-24 07:06] LABS: Anion Gap 14 (5-15); Carbon Dioxide 19 mmol/L (20-30); Chloride 97 mmol/L (98-107); Potassium 4.4 mmol/L (3.5-5.1); Sodium 130 mmol/L (136-145)
[2022-11-24 07:07] LABS: Calcium 7.5 mg/dL (8.5-10.1)
[2022-11-24 07:12] LABS: Glucose 55 mg/dL (74-106)
[2022-11-24 07:15] LABS: INR 1.07 (0.9-1.15); Partial Thromboplastin Time 49.2 SEC (24.5-34.5); Prothrombin Time 11.2 sec (9.3-11.8)
[2022-11-24] MEDS: ALBUTEROL SULF 2.5 MG/0.5ML(0.5%) NEB SOLN NEB PRN (07:51)
[2022-11-24] MEDS: IPRATROPIUM BROM 0.5 MG/2.5ML INH SOL NEB PRN (07:51)
[2022-11-24 08:34] LABS: BUN/Creatinine Ratio 3.8 (10.0-20.0); Blood Urea Nitrogen 38 mg/dL (9-23)
[2022-11-24] MEDS ORDERED: APIX5TAB PO (09:53)
[2022-11-24] MEDS ORDERED: APIXABAN 5 MG TAB PO ONE (10:00)
[2022-11-24] MEDS: ASPirin 81 mg TAB PO SCH (10:06)
[2022-11-24] MEDS: SEVELAMER 800 MG TAB PO SCH ×3 (10:06→17:35)
[2022-11-24] MEDS: cefTRIAXone 1GM/50ML D5W 50 ML IV SCH (10:07)
[2022-11-24] MEDS: CHOLECALCIFEROL (VITD3) 2,000 UNIT CAP/TAB PO SCH (10:07)
[2022-11-24] MEDS: GABAPENTIN 300 MG CAP PO SCH (10:07)
== END 2022-11-24 19:30 | disposition home or self-care (01) | DRG 299 ==
LOC: EDBD 14:47 → ER 14:47 → TELE 18:52 → EDUNIT# 18:52 → TELE-WESTW 22:05
PROVIDERS: ADMIT Nurse Practitioner Family; ATTEND Family Medicine
PROC: 5A1D70Z Performance of Urinary Filtration, Intermittent, Less than 6 Hours Per Day (ICD-10-PCS; 2022-11-22)
PROC: 5A1D70Z Performance of Urinary Filtration, Intermittent, Less than 6 Hours Per Day (ICD-10-PCS; principal; 2022-11-24)
DX: I82.411 Acute embolism and thrombosis of right femoral vein (principal); G93.41 Metabolic encephalopathy; N18.6 End stage renal disease; E44.0 Moderate protein-calorie malnutrition; E87.1 Hypo-osmolality and hyponatremia; I12.0 Hypertensive chronic kidney disease with stage 5 chronic kidney disease or end stage renal disease; I82.431 Acute embolism and thrombosis of right popliteal vein; E66.01 Morbid (severe) obesity due to excess calories; Z20.822 Contact with and (suspected) exposure to COVID-19; R60.9 Edema, unspecified; E11.51 Type 2 diabetes mellitus with diabetic peripheral angiopathy without gangrene; E11.22 Type 2 diabetes mellitus with diabetic chronic kidney disease; Z99.2 Dependence on renal dialysis; Z89.512 Acquired absence of left leg below knee; Z88.2 Allergy status to sulfonamides; Z68.37 Body mass index [BMI] 37.0-37.9, adult; Z86.73 Personal history of transient ischemic attack (TIA), and cerebral infarction without residual deficits; Z71.3 Dietary counseling and surveillance
CPT/HCPCS: 36415; 70450; 71045; 78582; 80048; 80053; 80061; 82140; 82306; 82962; 83036; 83605; 83880; 83970; 84100; 84443; 84484; 85007; 85025; 85027; 85610; 85730; 87040; 87081; 87426; 90935; 93005; 93971; 94640; 96365; 96366; 96372; 99291; G0378; J0696; J1815; J2543

== ENCOUNTER 2024-07-28 14:56 | Emergency (ER) | payer MEDICARE, MEDICAID ==
[~2024-07-28] VITALS: Ht 162.6 cm; Wt 98.0 kg
[~2024-07-28 14:56] MED LIST changes: +ACET-1882 PO; +APIX5TAB PO; +ASPI-543 PO; -CAR125T PO; +CARV-216 PO; +CARV25TA55 PO; +GLIP5TAB21 PO; +HYDR-4798 PO; +MELA3TAB27 PO; +MID10T PO; +SIMV40TA18 PO
[2024-07-28 15:11] VITALS: TEMP 98.6
--- NOTE | 2024-07-28 15:25 | ED.PDOC ---
Musculoskeletal HPI Comments HPI: Poor Historian. 54-year-old male presents to emergency department for evaluation of two day history of right 2nd toe wound that he noticed after he bumped his toe two days ago. Patient states that he lost his his toenail. Patient had his dialysis session yesterday Past Medical History: Dialysis, hypertension, diabetes, poor vision/blindness, hyperlipidemia Past Surgical History: Left lower extremity [id number] amputation, right to e amputation. REVIEW OF SYSTEMS: CONSTITUTIONAL: Denies acute: fever, diaphoresis, chills, generalized weakness. HEAD: Denies acute: headache, photophobia Eyes: Denies acute: Double vision, vision loss, eye pain, eye discharge. EARS: Denies acute: tinnitus, hearing loss, ear discharge, ear pain, THROAT: Denies acute: sore throat, swelling, difficulty swallowing , pain with swallowing, change in voice. NECK: Denies acute: neck pain, neck swelling, stiff neck. HEART: Denies acute : chest pain, palpitations, LUNGS: Denies acute: SOB, wheezing, cough, hemoptysis ABDOMEN: Denies acute: abdominal pain, Nausea, Vomiting, diarrhea, melena , hematemesis, hematochezia SKIN: Denies acute: rash, itchiness. EXTREMITIES: Denies acute: calf pain, numbness, tingling, weakness, Denies acute: Low back pain. Neuro: Denies acute: focal neurological deficit, motor or sensory focal neurological deficit, tremors, seizure like activity, confusion, dizziness, change in mental status, loss of bowel or bladder function, cauda equina like symptoms. : Denies acute: dysuria, hematuria, flank pain, increase in urinary frequency. PSYCH: Denies acute: hallucination, suicidal ideation, homicidal ideation. PHYSICAL EXAM: General: ----no---acute distress, awake and alert. Head: normocephalic, atraumatic. Neck: supple, trachea is midline, no swelling. Throat: Normal phonation. Eyes:, no erythema, no purulent discharge, no proptosis, no icterus. Heart: regular rate, regular rhythm, no significant murmur appreciated. Lungs: no apparent respiratory distress, Able to speak in full sentences. No wheezing, no rhonchi, no crackles. No stridors Clear to auscultation bilaterally. Abdomen: non tender to palpation, non distended, soft, no guarding, no rebound, + bowel sounds. Neuro: Awake, Alert, oriented to name, self, situation, follows commands GCS=15. Speech is normal. Skin: no petechia, no purpura, no cyanosis, non-pale, not jaundice. Evaluation of the area of complaint: Right foot 2nd toe nail is missing. No active bleeding. No tenderness to palpation. No purulent discharge. No apparent findings to suggest infection. Patient is neurovascularly intact in the affected extremity. Pedal pulses palpable. Sensory and motor are present. Patient has poor sensation at baseline due to his diabetes. Makes eye contact. moves all four extremities. Face: no apparent facial droop. ED COURSE: Time Seen by MD: 15:15 Primary Care Provider: NEHA Reviewed Notes: Nurses Notes, Allergies Allergies: Coded Allergies: Baclofen (Verified Allergy, Severe, 07/02/17) Sulfa Antibiotics (Unverified Allergy, Unknown, 11/20/22) Sulfamethoxazole w/Trimethoprim (Verified Allergy, Unknown, 05/14/17) Home Meds Active Scripts Cephalexin Monohydrate (Cephalexin) 500 Mg Cap, 500 MG PO Q6HR for 7 Days, #28 CAP Prov:FITO CRAWFORD DO 07/28/24 Apixaban Base (ELIQUIS) 5 Mg Tab, 10 MG PO BID for 7 Days, #14 TAB 10MG BID X 7 DAYS THEN 5MG PO BID FOR AT LEAST 6 MONTHS FOR DVT/PE TREATMENT Prov:CAM DENTON MD 11/24/22 Apixaban Base (ELIQUIS) 5 Mg Tab, 5 MG PO BID, #180 TAB Prov:CAM DENTON MD 11/24/22 Nifedipine (Nifedipine Er) 30 Mg Tab, 1 TAB PO DAILY, #30 TAB 0 Refills Prov:LOLY LEROY MDFACP 04/06/17 Reported Medications Gabapentin (Gabapentin) 300 Mg Cap, 300 MG PO TID, MG 11/21/22 Melatonin (KP MELATONIN) 3 Mg Tab, 1 TAB PO QPM, #30 TAB 2 Refills 11/21/22 Acetaminophen (Acetaminophen) 325 Mg Tab, 325 MG PO TIDPRN, TAB 11/21/22 Simvastatin (Simvastatin) 40 Mg Tab, 40 MG PO DAILY for 30 Days 11/21/22 Sevelamer Carbonate (Renvela) 800 Mg Tab, 4 TAB PO TIDWM, #810 TAB 3 Refills 11/21/22 Midodrine HCl (Midodrine HCl) 10 Mg Tab, 10 MG PO DAILYP, TAB 11/21/22 Hydrocodone-Acetaminophen (Hydrocodone Bitartrate/AC 10-325 mg) 1 Tab Tab, 1 TAB PO QIDPRN, TAB 11/21/22 Glipizide (Glipizide) 5 Mg Tab, 5 MG PO DAILY, MG 11/21/22 Cholecalciferol (VITAMIN D3) 2,000 Unit Tab, 1 TAB PO DAILY, #30 TAB 5 Refills 11/21/22 Carvedilol (Carvedilol) 25 Mg Tab, 1 TAB PO BID, #180 TAB 1 Refill 11/21/22 Aspirin (Aspir-Low) 81 Mg Tab, 81 MG PO DAILY, MG 11/21/22 Cinacalcet Hydrochloride (Sensipar) 30 Mg Tab, 1 TAB PO DAILY, #30 TAB 11 Refills 02/26/18 Gabapentin (Gabapentin) 300 Mg Cap, 1 CAP PO TID, #90 CAP 5 Refills 02/26/18 Sevelamer Carbonate (Renvela) 800 Mg Tab, 3 TAB PO TID, #810 TAB 3 Refills 02/26/18 Carvedilol (COREG) 12.5 Mg Tab, 12.5 MG PO BID, TAB 02/26/18 Cholecalciferol (VITAMIN D3) 2,000 Unit Tab, 2000 UNIT PO DAILY, TAB 02/26/18 Simvastatin (Zocor) 40 Mg Tab, 1 TAB PO DAILY, #90 TAB 1 Refill 02/26/18 Aspirin (Asa) 81 Mg Ch, 81 MG PO DAILY 02/26/18 Information Source: Patient Location: Right Past Medical History PAST MEDICAL HISTORY: CVA, DM, ESRD, HTN Surgical History: BKA Family History Family History: Reviewed,noncontributory to illness Social History Smoker: Non-Smoker Alcohol: Denies ETOH Use Drugs: Denies Drug Use Lives In: Home Was a procedure done? Was a procedure done?: No Differential Diagnosis EXT Differential Diagnosis: Cellulitis, Deep Vein Thrombosis, Fracture, Sprain, Dislocation, Contusion, Strain, Septic, Neurovascular injury, Bursitis, Other (Osteomyelitis, diabetic foot ulcer) X-Ray, Labs, Meds, VS Vital Signs Date Time Temp Pulse Resp B/P (MAP) Pulse Ox O2 Delivery O2 Flow Rate FiO2 07/28/24 16:17 75 18 92 Room Air 07/28/24 16:17 76 18 147/62 (90) 92 07/28/24 15:11 98.6 75 18 135/41 (72) 96 98.6 Lab Test 07/28/24 15:40 Range/Units White Blood Count 5.2 4.4-10.8 10^3/uL Red Blood Count 4.03 L 4.5-5.90 10^6/uL Hemoglobin 12.9 L 13.5-17.5 g/dL Hematocrit 38.4 L 41.0-53.0 % Mean Corpuscular Volume 95.2 80.0-100.0 fL Mean Corpuscular Hemoglobin 32.1 H 28.0-32.0 pg Mean Corpuscular Hemoglobin Concent 33.7 32.0-36.0 g/dL Red Cell Distribution Width 14.7 H 11.8-14.3 % Platelet Count 161 140-450 10^3/uL Mean Platelet Volume 7.8 6.9-10.8 fL Neutrophils (%) (Auto) 65.5 37.0-80.0 % Lymphocytes (%) (Auto) 17.2 10.0-50.0 % Monocytes (%) (Auto) 13.3 H 0.0-12.0 % Eosinophils (%) (Auto) 3.4 0.0-7.0 % Basophils (%) (Auto) 0.6 0.0-2.0 % Neutrophils # (Auto) 3.4 1.6-8.6 10 ^3/uL Lymphocytes # (Auto) 0.9 0.4-5.4 10 ^3/uL Monocytes # (Auto) 0.7 0-1.3 10 ^3/uL Eosinophils # (Auto) 0.2 0-0.8 10 ^3/uL Basophils # (Auto) 0 0-0.2 10 ^3/uL Nucleated Red Blood Cells 0.1 % Erythrocyte Sedimentation Rate 35 H 0-20 mm/hr Lactic Acid Level 1.2 0.4-2.0 mmol/L C-Reactive Protein High Sensitivity 1.11 H <1.0 mg/dL [facility] [id number] [place] [id number] Ph: [phone] DIAGNOSTIC IMAGING Diagnostic Imaging Report : [id number] Signed PATIENT: GEMMA BARR ACCT: [id number] UNIT: [id number] : 1970 LOC: ER ROOM / BED: / AGE / SEX: 54 / M ADM STATUS: REG ER SERVICE 1524 ORDERING PHYSICIAN: FITO CRAWFORD DO PROCEDURE(s): RFOOT - R FOOT 3 VIEW XRAY REASON: r/o infection ORDER NUMBER(s): [id number], ACCESSION NUMBER(s): [id number] CLINICAL INDICATION: r/o infection TECHNIQUE: 3 radiographic views of the right foot were obtained. Comparison: None FINDINGS/IMPRESSION: Absence of the right 4th toe and distal 3/4 of the right 4th metacarpal osteopenia of the right 5th metacarpal. Osteoporotic changes of the 3rd toe and distal aspect of the 2nd metacarpal. Soft tissue swelling over the right foot. Osteomyelitis can not be excluded consider MRI for further evaluation Talar beak noted dorsum of the foot. The visualized joint space is well maintained. The alignment is anatomical. There is no radiopaque foreign body. ATED BY: UMAIR JARAMILLO Jr., DO DICTATED DATE/TIME: 07/28/241622 SIGNED BY: UMAIR JARAMILLO Jr., SIGNED DATE/TIME: 07/28/241622 CC: Time of 1ST Reevaluation: 00:00 Reevaluation 1ST: N/A Patient Education/Counseling: Diagnosis, Treatment Family Education/Counseling: No Family Present Comments Patient presented with the above HPI.--toe injury rule out infection and diabetic patient----workup was initiated. patient was found with the above mentioned diagnosis. the following medications were ordered: please refer to order lists of meds and tests obtained by myself Dr. Crawford. Patient ED course and VS have been stabilized. Patient has been reassessed in the ED and remained in a stable condition. Pertinent incidental findings were discussed with the patient and/or family. Patient/family voices understanding and is agreeable with plan. Patient has been observed in the ED adequate length of time to insure improvement/stability. Escalation of care considered: Consideration of escalation to observation or admission No findings to suggest active infection. Patient was given wound care instructions and outpatient empiric antibiotics. Patient was DISCHARGED home in a stable condition. All the reports of any imaging studies that were ordered by myself were reviewed by myself. Departure 1 Departure Time of Disposition: 17:45 Impression: Primary Impression: Injury of toenail of right foot Disposition: HOME / SELF CARE / HOMELESS Condition: Stable Additional Instructions: Additional instructions: You MUST follow-up with your primary care/family doctor in 1 to 2 days. If you are unable to see your primary care/family doctor, please return to our emergency room for re-assessment and re-evaluation in 1 to 2 days. Return to the emergency room here in our facility or to the nearest ER [facility] if your symptoms change or worsen. CONSULTATIONS: you MUST Follow-up for consultation as soon as possible with: -saw sharpener in 1-2 days. Please call for appointment You MUST call the consultants office yourself to make an appointment. You may need to arrange that through your insurance and/or your primary/family doctor. If you are unable to see the solar energy consultant and designer in 1 to 2 days, you must return to our emergency room (or any other ER of your choice) for re-assessment and re- evaluation. Adequate fluid hydration. Please keep the area clean and covered. Apply [id number] topical antibiotic ointment twice a day. Below is a copy of your radiological report for follow up: [place] [address] Ph: [phone] DIAGNOSTIC IMAGING Diagnostic Imaging Report : [id number] Signed PATIENT: GEMMA BARR ACCT: [id number] UNIT: [id number] : 1970 LOC: ER ROOM / BED: / AGE / SEX: 54 / M ADM STATUS: REG ER SERVICE 1524 ORDERING PHYSICIAN: FITO CRAWFORD DO PROCEDURE(s): RFOOT - R FOOT 3 VIEW XRAY REASON: r/o infection ORDER NUMBER(s): [id number], ACCESSION NUMBER(s): [id number] CLINICAL INDICATION: r/o infection TECHNIQUE: 3 radiographic views of the right foot were obtained. Comparison: None FINDINGS/IMPRESSION: Absence of the right 4th toe and distal 3/4 of the right 4th metacarpal osteopenia of the right 5th metacarpal. Osteoporotic changes of the 3rd toe and distal aspect of the 2nd metacarpal. Soft tissue swelling over the right foot. Osteomyelitis can not be excluded consider MRI for further evaluation Talar beak noted dorsum of the foot. The visualized joint space is well maintained. The alignment is anatomical. There is no radiopaque foreign body. ATED BY: UMAIR JARAMILLO Jr., DO DICTATED DATE/TIME: 07/28/241622 SIGNED BY: UMAIR JARAMILLO Jr., SIGNED DATE/TIME: 07/28/241622 CC: e-Prescriptions Cephalexin Monohydrate (Cephalexin) 500 Mg Cap 500 MG PO Q6HR for 7 Days, #28 CAP Prov: FITO CRAWFORD DO 07/28/24 Discharged With: Self Critical Care Note Critical Care Time?: No FITO CRAWFORD DO Jul 28, 2024 15:25
[2024-07-28 16:02] LABS: Basophils # (auto) 0 10 ^3/uL (0-0.2); Basophils % (auto) 0.6 % (0.0-2.0); Eosinophils # (auto) 0.2 10 ^3/uL (0-0.8); Eosinophils % (auto) 3.4 % (0.0-7.0); Hematocrit 38.4 % (41.0-53.0); Hemoglobin 12.9 g/dL (13.5-17.5); Lymphocytes # (auto) 0.9 10 ^3/uL (0.4-5.4); Lymphocytes % (auto) 17.2 % (10.0-50.0); Mean Corpuscular Hemoglobin 32.1 pg (28.0-32.0); Mean Corpuscular Hgb Conc. 33.7 g/dL (32.0-36.0); Mean Corpuscular Volume 95.2 fL (80.0-100.0); Monocytes # (auto) 0.7 10 ^3/uL (0-1.3); Monocytes % (auto) 13.3 % (0.0-12.0); Neutrophils # (auto) 3.4 10 ^3/uL (1.6-8.6); Neutrophils % (auto) 65.5 % (37.0-80.0); Nucleated Red Blood Cells % 0.1 %; Platelet Count (auto) 161 10^3/uL (140-450); Red Blood Cells 4.03 10^6/uL (4.5-5.90); Red Cell Distribution Width 14.7 % (11.8-14.3); White Blood Cell 5.2 10^3/uL (4.4-10.8)
[2024-07-28 16:17] VITALS: BP 147/62; PULSE 75; RESP 18; O2SAT 92
--- NOTE | 2024-07-28 16:25 | DVH ---
CLINICAL INDICATION: r/o infection TECHNIQUE: 3 radiographic views of the right foot were obtained. Comparison: None FINDINGS/IMPRESSION: Absence of the right 4th toe and distal 3/4 of the right 4th metacarpal osteopenia of the right 5th m etacarpal. Osteoporotic changes of the 3rd toe and distal aspect of the 2nd metacarpal. Soft tissue swelling over the right foot. Osteomyelitis can not be excluded consider MRI for further evaluation Talar beak noted dorsum of the foot. The visualized joint space is well maintained. The alignment is anatomical. There is no radiopaque foreign body.
[2024-07-28 16:47] LABS: Erythrocyte Sedimentation Rate 35 mm/hr (0-20)
[2024-07-28] MEDS ORDERED: CEPH500C PO (17:46)
== END 2024-07-28 17:55 | disposition home or self-care (01) ==
LOC: ER 15:07
DX: S99.921A Unspecified injury of right foot, initial encounter (principal); N18.6 End stage renal disease; I12.0 Hypertensive chronic kidney disease with stage 5 chronic kidney disease or end stage renal disease; E78.5 Hyperlipidemia, unspecified; E11.22 Type 2 diabetes mellitus with diabetic chronic kidney disease; Z88.2 Allergy status to sulfonamides; Z88.1 Allergy status to other antibiotic agents; Z99.2 Dependence on renal dialysis; Z86.73 Personal history of transient ischemic attack (TIA), and cerebral infarction without residual deficits; Z79.84 Long term (current) use of oral hypoglycemic drugs; Z79.899 Other long term (current) drug therapy; Z79.82 Long term (current) use of aspirin; Z79.01 Long term (current) use of anticoagulants; Z89.512 Acquired absence of left leg below knee; W22.8XXA Striking against or struck by other objects, initial encounter; Y93.89 Activity, other specified; Y92.89 Other specified places as the place of occurrence of the external cause; Y99.8 Other external cause status
CPT/HCPCS: 36415; 73630; 83605; 85025; 85652; 86141

== ENCOUNTER 2024-09-15 18:00 | Inpatient (IN) | payer MEDICARE, MEDICAID ==
[~2024-09-15] VITALS: Ht 162.6 cm; Wt 101.6 kg
[~2024-09-15 18:00] MED LIST changes: +CEPH500C PO
--- NOTE | 2024-09-15 18:58 | ED.PDOC ---
Musculoskeletal HPI Comments A 54 year-old male, with a PMHX of DM, HTN, Cancer, Stroke, DKA, and High Lipids, presents to the ED via wheelchair with a chief complaint right foot 2nd digit pain with associated swelling as of X1 month ago. Patient states he was sent to the ED by pediatrist, Dr. Velasquez, for possible admission of osteomyelitis. Patient presents to the ED with multiple amputations to the left leg, right little toe, and right hand. Patient additionally notes being a regular M/W/F dialysis patient. Patient has no further complaints at this time and otherwise denies further associated symptoms of fever, chills, N/V/D, general weakness, or fatigue. Chief Complaint: Lower Extremity Time Seen by MD: 18:48 Primary Care Provider: LAUREN Reviewed Notes: Nurses Notes, Medications, Allergies Allergies: Coded Allergies: Baclofen (Verified Allergy, Severe, 07/02/17) Sulfa Antibiotics (Unverified Allergy, Unknown, 11/20/22) Sulfamethoxazole w/Trimethoprim (Verified Allergy, Unknown, 05/14/17) Home Meds Active Scripts Cephalexin Monohydrate (Cephalexin) 500 Mg Cap, 500 MG PO Q6HR for 7 Days, #28 CAP Prov:FITO CRAWFORD DO 07/28/24 Apixaban Base (ELIQUIS) 5 Mg Tab, 10 MG PO BID for 7 Days, #14 TAB 10MG BID X 7 DAYS THEN 5MG PO BID FOR AT LEAST 6 MONTHS FOR DVT/PE TREATMENT Prov:CAM DENTON MD 11/24/22 Apixaban Base (ELIQUIS) 5 Mg Tab, 5 MG PO BID, #180 TAB Prov:CAM DENTON MD 11/24/22 Nifedipine (Nifedipine Er) 30 Mg Tab, 1 TAB PO DAILY, #30 TAB 0 Refills Prov:LOLY LEROYCP 04/06/17 Reported Medications Gabapentin (Gabapentin) 300 Mg Cap, 300 MG PO TID, MG 11/21/22 Melatonin (KP MELATONIN) 3 Mg Tab, 1 TAB PO QPM, #30 TAB 2 Refills 11/21/22 Acetaminophen (Acetaminophen) 325 Mg Tab, 325 MG PO TIDPRN, TAB 11/21/22 Simvastatin (Simvastatin) 40 Mg Tab, 40 MG PO DAILY for 30 Days 11/21/22 Sevelamer Carbonate (Renvela) 800 Mg Tab, 4 TAB PO TIDWM, #810 TAB 3 Refills 11/21/22 Midodrine HCl (Midodrine HCl) 10 Mg Tab, 10 MG PO DAILYP, TAB 11/21/22 Hydrocodone-Acetaminophen (Hydrocodone Bitartrate/AC 10-325 mg) 1 Tab Tab, 1 TAB PO QIDPRN, TAB 11/21/22 Glipizide (Glipizide) 5 Mg Tab, 5 MG PO DAILY, MG 11/21/22 Cholecalciferol (VITAMIN D3) 2,000 Unit Tab, 1 TAB PO DAILY, #30 TAB 5 Refills 11/21/22 Carvedilol (Carvedilol) 25 Mg Tab, 1 TAB PO BID, #180 TAB 1 Refill 11/21/22 Aspirin (Aspir-Low) 81 Mg Tab, 81 MG PO DAILY, MG 11/21/22 Cinacalcet Hydrochloride (Sensipar) 30 Mg Tab, 1 TAB PO DAILY, #30 TAB 11 Refills 02/26/18 Gabapentin (Gabapentin) 300 Mg Cap, 1 CAP PO TID, #90 CAP 5 Refills 02/26/18 Sevelamer Carbonate (Renvela) 800 Mg Tab, 3 TAB PO TID, #810 TAB 3 Refills 02/26/18 Carvedilol (COREG) 12.5 Mg Tab, 12.5 MG PO BID, TAB 02/26/18 Cholecalciferol (VITAMIN D3) 2,000 Unit Tab, 2000 UNIT PO DAILY, TAB 02/26/18 Simvastatin (Zocor) 40 Mg Tab, 1 TAB PO DAILY, #90 TAB 1 Refill 02/26/18 Aspirin (Asa) 81 Mg Ch, 81 MG PO DAILY 02/26/18 Information Source: Patient Mode of Arrival: Wheelchair Location: Right Extremity Location: Toe 2 Severity: Moderate Onset of Symptoms: Spontaneous Associated signs and symptoms: Foot pain (2nd toe ) Past Medical History PAST MEDICAL HISTORY: Cancer, CVA, DM, ESRD, High Lipids, HTN Past Medical History (Other): Stroke Surgical History: Appendectomy, BKA Surgical History (Other): amputations to the left leg, right little toe, and right hand Family History Family History: Reviewed,noncontributory to illness Social History Smoker: Non-Smoker Alcohol: Occasionally Drugs: Denies Drug Use Lives In: Home Constitutional: denies: chills, diaphoresis, fatigue, fever, malaise, sweats, weakness, others EENTM: denies: blurred vision, double vision, ear bleeding, ear discharge, ear drainage, ear pain, ear ringing, eye pain, eye redness, hearing loss, mouth pain, mouth swelling, nasal discharge, nose bleeding, nose congestion, nose pain, photophobia, tearing, throat pain, throat swelling, voice changes, others Respiratory: denies: cough, hemoptysis, orthopnea, SOB at rest, shortness of breath, SOB with excertion, stridor, wheezing, others Cardiovascular: denies: chest pain, dizzy spells, diaphoresis, Dyspnea on exertion, edema, irregular heart beat, left arm pain, lightheadedness, palpitations, PND, syncope, others Gastrointestinal: denies: abdomen distended, abdominal pain, blood streaked bowels, constipated, diarrhea, dysphagia, difficulty swallowing, hematemesis, melena, nausea, poor appetite, poor fluid intake, rectal bleeding, rectal pain, vomiting, others Genitourinary: denies: burning, dysuria, flank pain, frequency, hematuria, incontinence, penile discharge, penile sore, pain, testicle pain, testicle swelling, urgency, others Neurological: denies: dizziness, fainting, headache, left sided numbness, left sided weakness, numbness, paresthesia, pre-existing deficit, right sided numbness, right sided weakness, seizure, speech problems, tingling, tremors, weakness, others Musculoskeletal: reports: others (Swelling and Pain to right foot, toe 2 ); den ies: back pain, gout, joint pain, joint swelling, muscle pain, muscle stiffness, neck pain Integumetry: denies: bruises, change in color, change in hair/nails, dryness, laceration, lesions, lumps, rash, wounds, others Allergic/Immunocompromised: denies: Difficulty Healing, Frequent Infections, Hives, Itching, others Hematologic/Lymphatic: denies: anemia, blood clots, easy bleeding, easy bruising, swollen glands, others Endocrine: denies: excessive hunger, excessive sweating, excessive thirst, excessive urination, flushing, intolerance to cold, intolerance to heat, unexplained weight gain, unexplained weight loss, others Psychiatric: denies: anxiety, bipolar disorder, depression, hopeless, panic disorder, schizophrenia, sleepless, suicidal, others All Other Systems: Reviewed and Negative Physical Exam General Appearance: Moderate Distress HEENT: Normal ENT Inspection, Pharynx Normal, TMs Normal Neck: Full Range of Motion, Non-Tender, Normal, Normal Inspection Respiratory: Chest Non-Tender, Lungs Clear, No Accessory Muscle Use, No Res piratory Distress, Normal Breath Sounds Cardiovascular: No Edema, No JVD, No Murmur, No Gallop, Normal Peripheral Pulses, Regular Rate/Rhythm Breast Exam: Deferred Gastrointestinal: No Organomegaly, Non Tender, No Pulsatile Mass, Normal Bowel Sounds, Soft Genitalia: Deferred Pelvic: Deferred Rectal: Deferred Extremities: No calf tenderness, Normal capillary refill, No pedal edema, Other (Redness and tenderness to the right foot 2nd and 3rd digits) Musculoskeletal : Apperance: Normal Neurologic: Alert, core checker II-XII nml as Tested, No Motor Deficits, Normal Affect, Normal Mood, No Sensory Deficits Cerebellar Function: Normal Reflexes: Normal Skin: Dry, Normal Color, Warm Lymphatic: No Adenopathy Was a procedure done? Was a procedure done?: No Differential Diagnosis EXT Differential Diagnosis: Cellulitis, CHF, Fracture, Laceration X-Ray, Labs, Meds, VS Vital Signs Date Time Temp Pulse Resp B/P (MAP) Pulse Ox O2 Delivery O2 Flow Rate FiO2 09/15/24 20:38 98.6 91 14 183/78 (113) 95 98.6 09/15/24 18:02 98.0 91 18 140/59 100 98.0 Lab Test 09/15/24 19:00 Range/Units White Blood Count 5.7 4.4-10.8 10^3/uL Red Blood Count 4.03 L 4.5-5.90 10^6/uL Hemoglobin 12.8 L 13.5-17.5 g/dL Hematocrit 38.1 L 41.0-53.0 % Mean Corpuscular Volume 94.5 80.0-100.0 fL Mean Corpuscular Hemoglobin 31.7 28.0-32.0 pg Mean Corpuscular Hemoglobin Concent 33.5 32.0-36.0 g/dL Red Cell Distribution Width 14.1 11.8-14.3 % Platelet Count 152 140-450 10^3/uL Mean Platelet Volume 7.9 6.9-10.8 fL Neutrophils (%) (Auto) 65.7 37.0-80.0 % Lymphocytes (%) (Auto) 16.7 10.0-50.0 % Monocytes (%) (Auto) 13.4 H 0.0-12.0 % Eosinophils (%) (Auto) 3.5 0.0-7.0 % Basophils (%) (Auto) 0.7 0.0-2.0 % Neutrophils # (Auto) 3.7 1.6-8.6 10 ^3/uL Lymphocytes # (Auto) 1.0 0.4-5.4 10 ^3/uL Monocytes # (Auto) 0.8 0-1.3 10 ^3/uL Eosinophils # (Auto) 0.2 0-0.8 10 ^3/uL Basophils # (Auto) 0 0-0.2 10 ^3/uL Nucleated Red Blood Cells 0.0 % Erythrocyte Sedimentation Rate 34 H 0-20 mm/hr Sodium Level 139 136-145 mmol/L Potassium Level 3.9 3.5-5.1 mmol/L Chloride Level 91 L 98-107 mmol/L Carbon Dioxide Level 33 H 20-31 mmol/L Anion Gap 15 5-15 Blood Urea Nitrogen 43 H 9-23 mg/dL Creatinine 8.15 H 0.700-1.30 mg/dL Glomerular Filtration Rate Calc 7 >90 mL/min BUN/Creatinine Ratio 5.3 L 10.0-20.0 Serum Glucose 185 H 74-106 mg/dL Calcium Level 10.4 8.7-10.4 mg/dL CAT scan of the right foot shows: IMPRESSION: Osteomyelitis of the 1st and 2nd digits involving the 1st distal phalanx, 2nd middle and distal phalanges in the distal aspect of the 2nd proximal phalanx. Soft tissue swelling and irregularity along the dorsal aspect of the 1st and 2nd digits at the level of the phalanges likely skin wounds. Chronic appearing deformity of the 5th metatarsal which may be from prior infection or trauma. 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 The CBC is within normal limits The chemistry panel is within normal limits except for a BUN of 43 and a creatinine of 8.15 At this time, the ESR is 34 The patient is being admitted to the hospitalist The otr company truck driver will be consulting on this patient Images Reviewed?: Images reviewed and evaluated by me Time of 1ST Reevaluation: 19:28 Reevaluation 1ST: Unchanged Patient Education/Counseling: Diagnosis, Treatment, Prognosis Family Education/Counseling: No Family Present Departure 1 Departure Time of Disposition: 21:30 Impression: Primary Impression: Foot osteomyelitis, right Qualified Codes: M86.9 - Osteomyelitis, unspecified Disposition: 09 ADMITTED INPATIENT Admit to: Med Surg Condition: Fair Critical Care Note Critical Care Time?: No Stability Stability form required: Yes Unstable for transfer: ED Physician Assesment (Clinical assesment) Heart Score Heart Score: Heart Score Response (Comments) Value History N/A 0 EKG N/A 0 Age N/A 0 Risk Factors N/A 0 Troponin N/A 0 Total 0 I personally scribed for TOMER NICHOLAS MD ([email or web address]) on 09/15/24 at 18:58. Electronically submitted by Laine JaneJ[facility] C. [facility]REMONT [facility]). TOMER NICHOLAS MD Sep 15, 2024 18:58
[2024-09-15 19:23] LABS: Hematocrit 38.1 % (41.0-53.0); Hemoglobin 12.8 g/dL (13.5-17.5); Mean Corpuscular Hemoglobin 31.7 pg (28.0-32.0); Mean Corpuscular Volume 94.5 fL (80.0-100.0); Nucleated Red Blood Cells % 0.0 %
[2024-09-15 20:17] LABS: Potassium 3.9 mmol/L (3.5-5.1); Sodium 139 mmol/L (136-145)
[2024-09-15 20:18] LABS: Anion Gap 15 (5-15)
[2024-09-15 20:23] LABS: BUN/Creatinine Ratio 5.3 (10.0-20.0)
[2024-09-15 20:32] LABS: Blood Urea Nitrogen 43 mg/dL (9-23); Calcium 10.4 mg/dL (8.7-10.4); Carbon Dioxide 33 mmol/L (20-31); Chloride 91 mmol/L (98-107); Glucose 185 mg/dL (74-106)
--- NOTE | 2024-09-15 21:16 | DVH ---
CT RIGHT KNEE HISTORY: pain and infection COMPARISON: None TECHNIQUE: Multiple axial CT images of the right foot were obtained without intra-articular contrast. Coronal and sagittal bone and soft tissue reformations were also obtained. One or more of the [facility] wing radiation dose reduction techniques were used for this examination: automated exposure control, adjustment of the mA and/or kV according to patient size, use of iterative reconstruction technique. FINDINGS: Bony demineralization. There is chronic appearing deformity of the 5th metatarsal. 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 There is no acute fracture. There is hetero geneous lucency and sclerosis of the 1st distal phalanx and the 2nd middle and distal phalanges in th e distal aspect of the 2nd proximal phalanx. There is soft tissue edema about the 1st and 2nd phalang es. Irregularity of the skin along the dorsal aspects of the 1st and 2nd digits at the level of the p halanges likely wounds. There is subcutaneous edema in the right foot. There is calcified athero scle rosis. IMPRESSION: Osteomyelitis of the 1st and 2nd digits involving the 1st distal phalanx, 2nd middle and distal phala nges in the distal aspect of the 2nd proximal phalanx. Soft tissue swelling and irregularity along the dorsal aspect of the 1st and 2nd digits at the level of the phalanges likely skin wounds. Chronic appearing deformity of the 5th metatarsal which may be from prior infection or trauma. 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
[2024-09-15] MEDS: SODIUM CHLORIDE 0.9% 500 ML IV ONE (23:15)
[2024-09-15] MEDS ORDERED: DEXTROSE (50%) 50ML SYRG IV PRN (23:15)
[2024-09-15] MEDS ORDERED: VANCOMYCIN PER PHARMACY 0 MG IV SCH (23:15)
[2024-09-16] MEDS: PIPERACILLIN-TAZOB 2.25GM 50 ML IV ONE (00:13)
[2024-09-16] MEDS: MORPHINE SULFATE INJ 2 MG/ml SYRG IV PRN (00:17)
[2024-09-16] MEDS: InsuLIN REG 1unit/0.01ml Soln (100units/ml) SC SCH ×2 (00:43→00:44)
[2024-09-16] MEDS: VANCOMYCIN 1GM/200ML PM 200 ML IV SCH (00:59)
[2024-09-16] MEDS: hydrALAZINE HCL 20 MG/ML VL IV ONE (02:35)
--- NOTE | 2024-09-16 03:26 | DVHHPRES ---
History of Present Illness Resident Creating Document: JESSIE NICHOLE RESIDENT History of Present Illness López Baez is a 54 year-old male, with a past medical history of DM, HTN, Cancer, Stroke, DKA, hyperlipidemia CKD Stage 5 (on dialysis MWF at [facility]). The patient presented to the ED with a chief complain of 1 month of right foot 2nd digit sharp pain that started after a traumatic toe nail avulsion, that created an ulcer in 2nd digit nail bed, associated with foot swelling. The patient states he was sent to the ED by ripening room attendant, Dr. Velasquez, for possible admission of osteomyelitis. In the ED the CT scan of right foot showed Osteomyelitis of the 1st and 2nd digits involving the 1st distal phalanx, 2nd middle and distal phalanges in the distal aspect of the 2nd proximal phalanx. Soft tissue swelling and irregularity along the dorsal aspect of the 1st and 2nd digits at the level of the phalanges likely skin wounds.Chronic appearing deformity of the 5th metatarsal which may be from prior infection or trauma. Prior amputation of the 4th digit at the level of the proximal me tatarsal. The patient denies fever, chills, SOB, nausea, vomit or other symptoms. 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, right toe amputation) Family History: DM, Hypertension Smoke: No ALCOHOL: occassional Lives: with Family Review of Systems Constitutional: Yes: Malaise; No: Fever, Chills, Sweats, Weakness, Other Eyes: No: Pain, Vision change, Conjunctivae inflammation, Eyelid inflammation, Other, Redness ENT: No: Ear pain, Ear discharge, Nose pain, Nose discharge, Nose congestion, Mouth pain, Mouth swelling, Throat pain, Throat swelling, Other Respiratory: No: Cough, Dry, Shortness of breath, SOB with excertion, Wheezing, Hemoptysis, Pleuritic Pain, Sputum, Wheezing, Other Cardiovascular: No: Chest Pain, Palpitations, Orthopnea, Paroxysmal Noc. Dyspnea, Edema, Lt Headedness, Other Gastrointestinal: No: Nausea, Vomiting, Abdominal Pain, Diarrhea, Constipation, Melena, Hematochezia, Other Genitourinary: No Dysuria, No Frequency, No Incontinence, No Hematuria, No Retention, No Other Musculoskeletal: foot pain (right foot pain) Skin: No: Rash, Lesions, Jaundice, Bruising, Other Neurological: No: Weakness, Numbness, Incoordination, Change in speech, Confusion, Seizures, Other Allergies: Coded Allergies: Baclofen (Verified Allergy, Severe, 07/02/17) Sulfa Antibiotics (Unverified Allergy, Unknown, 11/20/22) Sulfamethoxazole w/Trimethoprim (Verified Allergy, Unknown, 05/14/17) Medications Current Medications Medications Dose Ordered Sig/Didier Route Start Time Stop Time Status Last Admin Dose Admin Diagnostic Test (Pha) 1 strip ACHS 09/16/24 07:00 Dextrose 50 ml UD PRN IV 09/15/24 23:15 Vancomycin HCl 0 ml @ 0 mls/hr UD IV 09/15/24 23:15 UNV Vancomycin HCl 200 ml @ 133.333 mls/hr Q2H IV 09/15/24 23:45 09/16/24 03:14 09/16/24 02:15 133.333 MLS/HR Morphine Sulfate 2 mg Q6HP PRN IV 09/16/24 00:00 09/16/24 00:17 2 MG Acetaminophen/ Hydrocodone Bitart 1 tab Q6HR PRN PO 09/16/24 00:00 Insulin Human Regular HS SC 09/16/24 00:00 Insulin Human Regular AC SC 09/16/24 00:00 09/16/24 00:43 9 UNITS Exam Vital Signs Vital Signs Date Time Temp Pulse Resp B/P (MAP) Pulse Ox O2 Delivery O2 Flow Rate FiO2 09/16/24 02:35 168/82 09/16/24 00:56 78 16 09/16/24 00:56 93 09/15/24 23:34 98.7 98.7 09/15/24 23:34 Room Air General Appearance: Alert, Oriented X3, Cooperative, No acute distress HEENT: Atraumatic, PERRLA, Mucous membr. moist/pink Respiratory: Clear to auscultation, Normal air movement Cardiovascular: Regular rate, Normal S1, Normal S2 Abdominal: Normal bowel sounds, Soft, No tenderness, No hepatospenomegaly, No masses Extremities: No clubbing, No cyanosis, No edema, Other (Amputation below the knee in left extremity, right foot with no pitting edema, wet ulcer on 2nd digit, pulses are reduced on right foot, Right dry box tender to palpation and warmth. ) Skin: No rashes, No breakdown Neuro: Normal gait, Normal speech, Cranial nerves 3-12 NL, Other (Decrease sensation on rigth foot. ) Psych/Mental Status: Mental status NL, Mood NL Labs/Xrays Labs Test 09/15/24 23:09 09/15/24 19:00 Range/Units POC Glucose 258 H 70-106 mg/dl White Blood Count 5.7 4.4-10.8 10^3/uL Red Blood Count 4.03 L 4.5-5.90 10^6/uL Hemoglobin 12.8 L 13.5-17.5 g/dL Hematocrit 38.1 L 41.0-53.0 % Mean Corpuscular Volume 94.5 80.0-100.0 fL Mean Corpuscular Hemoglobin 31.7 28.0-32.0 pg Mean Corpuscular Hemoglobin Concent 33.5 32.0-36.0 g/dL Red Cell Distribution Width 14.1 11.8-14.3 % Platelet Count 152 140-450 10^3/uL Mean Platelet Volume 7.9 6.9-10.8 fL Neutrophils (%) (Auto) 65.7 37.0-80.0 % Lymphocytes (%) (Auto) 16.7 10.0-50.0 % Monocytes (%) (Auto) 13.4 H 0.0-12.0 % Eosinophils (%) (Auto) 3.5 0.0-7.0 % Basophils (%) (Auto) 0.7 0.0-2.0 % Neutrophils # (Auto) 3.7 1.6-8.6 10 ^3/uL Lymphocytes # (Auto) 1.0 0.4-5.4 10 ^3/uL Monocytes # (Auto) 0.8 0-1.3 10 ^3/uL Eosinophils # (Auto) 0.2 0-0.8 10 ^3/uL Basophils # (Auto) 0 0-0.2 10 ^3/uL Nucleated Red Blood Cells 0.0 % Erythrocyte Sedimentation Rate 34 H 0-20 mm/hr Sodium Level 139 136-145 mmol/L Potassium Level 3.9 3.5-5.1 mmol/L Chloride Level 91 L 98-107 mmol/L Carbon Dioxide Level 33 H 20-31 mmol/L Anion Gap 15 5-15 Blood Urea Nitrogen 43 H 9-23 mg/dL Creatinine 8.15 H 0.700-1.30 mg/dL Glomerular Filtration Rate Calc 7 >90 mL/min BUN/Creatinine Ratio 5.3 L 10.0-20.0 Serum Glucose 185 H 74-106 mg/dL Hemoglobin A1c 5.9 H <5.7 % A1C Calcium Level 10.4 8.7-10.4 mg/dL SEPSIS Sepsis Screen Date sepsis recognized/suspect: Sep 15, 2024 Time Sepsis recognized/suspect: 1803 Recent Procedure: No On Antibiotic Therapy: No Respiratory Rate >20: No Heart Rate >90: No Temp<36 C (96.8 F) or >38.3 C: No SBP <90 or MAP <65 mmHG: No New Acute Mental Status Change: No Is the patient on CPAP, BIPAP,: No Physician Orders Admit (09/15/24 23:11) Code Status (09/15/24 23:11) Vital Signs .PER UNIT PROTOCOL (09/15/24 23:11) Review Orders With Adm.Md (09/15/24 23:11) Bedside Commode (09/15/24 23:11) Consistent Carb(Ccho)Diabetes (09/16/24 Breakfast) Notify Md Of Changes From Base (09/15/24 23:11) Advance Directive (09/15/24 23:11) Blood Culture (09/15/24 23:11) Routine Bacterial Culture (09/15/24 23:11) Patient Condition (09/15/24 23:11) Allergies (09/15/24 23:11) Drug Screen (09/15/24 23:11) Notify Md Of Changes From Base (09/15/24 23:11) Complete Blood Count (09/16/24 04:00) Comprehensive Metabolic Panel (09/16/24 04:00) Urinalysis (09/15/24 23:11) Glucose Blood (Accu-Chek Comfort Curve T (09/16/24 07:00) Dextrose 50% Syringe (09/15/24 23:15) Vancomycin Per Pharmacy (09/15/24 23:15) Vancomycin 1gm/200ml Pm (09/15/24 23:45) Morphine Sulfate Injection (09/16/24 00:00) Hydrocodone-Acet 5/325mg Tab ([place] 5/32 (09/16/24 00:00) * Surgical Consult (09/15/24 ) * Wound Consult (09/15/24 ) Insulin R (Human) (Insulin R) (09/16/24 00:00) Insulin R (Human) (Insulin R) (09/16/24 00:00) Vital Signs Date Time Temp Pulse Resp B/P (MAP) Pulse Ox O2 Delivery O2 Flow Rate FiO2 09/16/24 02:35 168/82 09/16/24 00:56 78 16 194/79 09/16/24 00:56 78 16 194/79 (117) 93 09/16/24 00:17 87 16 195/67 09/15/24 23:34 98.7 87 16 195/67 (109) 93 98.7 09/15/24 23:34 87 16 93 Room Air 09/15/24 20:38 98.6 91 14 183/78 (113) 95 98.6 Laboratory Tests Test 09/15/24 19:00 White Blood Count 5.7 10^3/uL (4.4-10.8) Medications Medications Dose Ordered Sig/Didier Route Start Time Stop Time Status Last Admin Dose Admin Hydralazine HCl 10 mg ONCE ONCE IV 09/16/24 01:15 09/16/24 01:16 DC 09/16/24 02:35 10 MG Insulin Human Regular AC SC 09/16/24 00:00 09/16/24 00:43 9 UNITS Morphine Sulfate 2 mg Q6HP PRN IV 09/16/24 00:00 09/16/24 00:17 2 MG Piperacillin Sod/ Tazobactam Sod 50 ml @ 50 mls/hr ONCE ONCE IV 09/15/24 23:15 09/16/24 00:14 DC 09/16/24 00:13 50 MLS/HR Sodium Chloride 500 ml @ 500 mls/hr Q1H ONCE IV 09/15/24 19:00 09/15/24 19:59 DC 09/15/24 23:15 500 MLS/HR Vancomycin HCl 200 ml @ 133.333 mls/hr Q2H IV 09/15/24 23:45 09/16/24 03:14 09/16/24 02:15 133.333 MLS/HR Assessment/Plan Assessment/Plan #Osteomyelitis of the Right foot Zocyn IV Ceftriaxone IV Surgical consult Wound consult #CKD Stage 5 Patient on dialysis MWF #DM type 2, with hyperglycemia Insulin sliding scale HbA1C #Hypertension Amlodipine 5mg po qd #Hyperlipidemia Atorvastatin 40mg po qd Low Carbohydrate diet DVT prophylaxis PUD prophylaxis Protonic Goals of care discussed with the patient > 35 min. Discussed plan of care with Dr. Lawson Code status: Full code PCP: Dr. Jackson Plan discussed with: Patient and daughter, the patient agrees with the plan. Plan discussed with: Patient, Daughter My Orders Orders - JESSIE NICHOLE RESIDENT Procedure Category Date Status Time Admit ADMIT 09/15/24 Transmitted 23:11 Code Status CODE 09/15/24 Transmitted 23:11 Vital Signs [facility] 09/15/24 In Process 23:11 Review Orders With [facility] 09/15/24 In Process Adm. 23:11 Bedside Commode [facility] 09/15/24 In Process 23:11 Consistent DIET 09/16/24 Transmitted Carb(Ccho)Diabetes Breakfast Notify Md Of Changes [facility] 09/15/24 In Process From Base 23:11 Advance Directive [facility] 09/15/24 In Process 23:11 Blood Culture ELIF 09/15/24 In Process 23:11 Routine Bacterial ELIF 09/15/24 Logged Culture 23:11 Patient Condition ORDERS 09/15/24 Transmitted 23:11 Allergies BETHANY 09/15/24 In Process 23:11 Drug Screen LAB 09/15/24 Logged 23:11 Notify Of Changes [facility] 09/15/24 In Process From Base 23:11 Complete Blood Count LAB 09/16/24 Logged 04:00 Comprehensive LAB 09/16/24 Logged Metabolic Panel 04:00 Urinalysis LAB 09/15/24 Logged 23:11 Glucose Blood [facility] 09/16/24 In Process (Accu-Chek Comfort 07:00 Dextrose 50% Syringe [facility] 09/15/24 In Process 23:15 Vancomycin Per [facility] 09/15/24 Pending Pharmacy 23:15 Vancomycin 1gm/200ml [facility] 09/15/24 In Process Pm 23:45 Morphine Sulfate [facility] 09/16/24 In Process Injection 00:00 Hydrocodone-Acet [facility] 09/16/24 In Process 5/325mg Tab ([place] 00:00 * Surgical Consult CONS 09/15/24 Transmitted * Wound Consult CONS 09/15/24 Transmitted Insulin R (Human) [facility] 09/16/24 In Process (Insulin R) 00:00 Insulin R (Human) PHA 09/16/24 In Process (Insulin R) 00:00 Common Visit Codes: 69287-[id number] INP/OBS CARE (HIGH) Secondary Visit Codes: 11178-[id number] CARE PLAN 30 MINUTES JESSIE NICHOLE RESIDENT Sep 16, 2024 03:26
[2024-09-16 06:00] LABS: Hematocrit 40.3 % (41.0-53.0); Hemoglobin 13.4 g/dL (13.5-17.5); Mean Corpuscular Hemoglobin 31.5 pg (28.0-32.0); Mean Corpuscular Volume 94.9 fL (80.0-100.0); Nucleated Red Blood Cells % 0.0 %
[2024-09-16 06:20] LABS: Alanine Aminotransferase 17 U/L (7-40); Albumin 4.8 g/dL (3.2-4.8); Alkaline Phosphatase 174 U/L (46-116); Anion Gap 18 (5-15); BUN/Creatinine Ratio 5.9 (10.0-20.0); Blood Urea Nitrogen 46 mg/dL (9-23); Calcium 10.1 mg/dL (8.7-10.4); Carbon Dioxide 29 mmol/L (20-31); Chloride 92 mmol/L (98-107); Glucose 69 mg/dL (74-106); Potassium 3.8 mmol/L (3.5-5.1); Sodium 139 mmol/L (136-145); Total Protein 8.3 g/dL (5.7-8.2)
[2024-09-16 06:21] LABS: Bilirubin, Total 0.4 mg/dL (0.2-1.0)
[2024-09-16] MEDS ORDERED: InsuLIN REG 1unit/0.01ml Soln (100units/ml) SC SCH ×2 (07:00→22:00)
[2024-09-16] MEDS: ACCU-CHEK COMFORT CURVE STRIP VI SCH (07:31)
[2024-09-16] MEDS: HYDROcodone-ACET 5/325MG TAB PO PRN (09:13)
[2024-09-16] MEDS ORDERED: ENOXAPARIN SOD 40 MG/0.4 ML SYRINGE SC SCH (10:00)
[2024-09-16] MEDS: HEPARIN SODIUM (PORCINE) 5000 UNITS/ML 1ML VIAL SC SCH (10:06)
[2024-09-16] MEDS: PIPERACILLIN-TAZOB 2.25GM 50 ML IV SCH (13:36)
--- NOTE | 2024-09-16 13:39 | DVHPNRES ---
Progress Note Date Seen: Sep 16, 2024 Resident Creating Document: RUSTY LUCERO Medical Necessity Reason Pt with a Central, PICC or Fol: No Subjective Review of Systems Patient is a 54-year-old male with a past medical history of diabetes mellitus, hypertension, stroke, hyperlipidemia, ESRD presented to the ED with a chief complain of 1 month of right foot 2nd digit sharp pain that started after a traumatic toe nail avulsion, that created an ulcer in 2nd digit nail bed, associated with foot swelling. The patient states he was sent to the ED by doctor for possible admission of osteomyelitis. CT scan of right foot showed Osteomyelitis of the 1st and 2nd digits involving the 1st distal phalanx, 2nd middle and distal phalanges in the distal aspect of the 2nd proximal phalanx. Soft tissue swelling and irregularity along the dorsal aspect of the 1st and 2nd digits at the level of the phalanges likely skin wounds. Chronic appearing deformity of the 5th metatarsal which may be from prior infection or trauma. 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 The patient denies fever, chills, SOB, nausea, vomit or other symptoms. 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 No: Ear pain, Ear discharge, Nose pain, Nose discharge, Nose congestion, Mouth pain, Mouth swelling, Throat pain, Throat swelling, Other Respiratory: No: Cough, Dry, Shortness of breath, SOB with excertion, Wheezing, Hemoptysis, Pleuritic Pain, Sputum, Wheezing, Other Cardiovascular: No: Chest Pain, Palpitations, Orthopnea, Paroxysmal Noc. Dyspnea, Edema, Lt Headedness, Other Gastrointestinal: No: Nausea, Vomiting, Abdominal Pain, Diarrhea, Constipation, Melena, Hematochezia, Other Genitourinary: No Dysuria, No Frequency, No Incontinence, No Hematuria, No Retention, No Other Musculoskeletal: foot pain (right foot pain), Amputation (left foot) Skin: No: Rash, Lesions, Jaundice, Bruising, Other Neurological: No: Weakness, Numbness, Incoordination, Change in speech, Confusion, Seizures, Other Allergies: Coded Allergies: Baclofen (Verified Allergy, Severe, 07/02/17) Sulfa Antibiotics (Unverified Allergy, Unknown, 11/20/22) Sulfamethoxazole w/Trimethoprim (Verified Allergy, Unknown, 05/14/17) Objective vital signs Vital Sign Date Time Temp Pulse Resp B/P (MAP) Pulse Ox O2 Delivery O2 Flow Rate FiO2 09/16/24 12:42 190/74 09/16/24 12:00 98.1 82 13 100 98.1 09/16/24 10:14 Room Air* 0 21 Total Intake and Output 09/15/24 09/15/24 09/16/24 15:00 23:00 07:00 Intake Total 950 ml Balance 950 ml medications Current Medications Medications Dose Ordered Sig/Didier Route Start Time Stop Time Status Last Admin Dose Admin Diagnostic Test (Pha) 1 strip ACHS 09/16/24 07:00 09/16/24 12:20 1 STRIP Dextrose 50 ml UD PRN IV 09/15/24 23:15 Vancomycin HCl 0 ml @ 0 mls/hr UD IV 09/15/24 23:15 Morphine Sulfate 2 mg Q6HP PRN IV 09/16/24 00:00 09/16/24 00:17 2 MG Insulin Human Regular HS SC 09/16/24 00:00 Insulin Human Regular AC SC 09/16/24 00:00 09/16/24 12:20 2 UNITS Piperacillin Sod/ Tazobactam Sod 50 ml @ 12.5 mls/hr Q8HR IV 09/16/24 14:00 Heparin Sodium (Porcine) 5,000 units Q12HR SC 09/16/24 10:00 09/16/24 10:06 5,000 UNITS Aspirin 81 mg DAILY PO 09/17/24 10:00 UNV Carvedilol 12.5 mg BID PO 09/16/24 22:00 UNV Gabapentin 300 mg TID PO 09/16/24 14:00 UNV Acetaminophen/ Hydrocodone Bitart 1 tab QIDPRN PO 09/16/24 18:00 UNV Patient Own Medication 1 tab QPM PO 09/16/24 18:00 UNV Nifedipine 30 mg DAILY PO 09/16/24 13:30 UNV Examination General Appearance: Cooperative. Well developed. Well nourished. NAD Head Exam: Normal inspection Neck Exam: Normal inspection. Non-tender. Normal alignment Pulmonary/Respiratory: Chest non-tender. Clear bilateral breath sounds, no crackles, no wheezing. Cardiovascular/Chest: Regular rate and rhythm. No murmurs. No JVD. Peripheral Pulses: 2+ Radial (R). 2+ Radial (L). 2+ Pedal (R). 2+ Pedal (L) Abdominal Exam: Normal bowel sounds. Soft. normal abdomen, no visible veins, Nontender. No hepatospenomegaly. No masses Ankle Exam: Negative ankle edema Lower extremities: Negative lower extremity edema Neuro/Mental Status: A&O x4. Coherent. Thoughts/Psych: Normal thought pattern. Appropriate mood and affect. Good judgement and insight Skin Exam: Normal inspection. Normal color. Warm. Dry laboratory and microbiology Laboratory Tests 09/16/24 04:15 Test 09/16/24 04:15 Range/Units Serum Glucose 69 #L 74-106 mg/dL Labs and/or images reviewed: Labs reviewed by me, Image(s) reviewed by me Problem List/Assessment/Plan Problem List/Assessment/Plan # ESRD -on dialysis MWF at [facility] [place] -nephrology consult (Dr. 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 -gabapentin -Zocyn IV - IV vancomycin per pharmacy -podiatry consult -Surgical consult -Wound consult #DM type 2, with hyperglycemia -Insulin sliding scale -HbA1C: 5.9 H #Hypertension - nifedipine 30 mg - carvedilol #Hyperlipidemia -Atorvastatin 40mg po qd # history of left [id number] amputation due to diabetic foot ulcer related complications - monitor Low Carbohydrate diet PUD prophylaxis: protonix 40mg DVT prophylaxis: 5000 units of heparin b.i.d. Goals of care: Full code, discussed for >16 minutes on 09/16/24 Plan discussed with patient Plan discussed with Dr. Gomes Plan discussed with: Patient (RN), Other Date of Service: Sep 16, 2024 Billing Provider: ROSALIA GOMES MD Common Visit Codes: [id number] INP/OBS CARE(HIGH) Secondary Visit Codes: [id number] CARE PLAN 30 MINUTES RUSTY LUCERO RESIDENT Sep 16, 2024 13:39 BRAXTON EVANGELISTA RESIDENT Sep 16, 2024 16:00 ROSALIA GOMES MD Sep 16, 2024 19:30
[2024-09-16] MEDS ORDERED: GABAPENTIN 300 MG CAP PO SCH (14:00)
--- NOTE | 2024-09-16 15:43 | DVHINCON2 ---
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 He was sent to the ED by junior software developer, Dr. Velasquez, for possible admission of osteomyelitis. In the ED the CT scan of right foot showed Osteomyelitis of the 1st and 2nd digits involving the 1st distal phalanx, 2nd middle and distal phalanges in the distal aspect of the 2nd proximal phalanx. Soft tissue swelling and irregularity along the dorsal aspect of the 1st and 2nd digits at the level of the phalanges likely skin wounds.Chronic appearing deformity of the 5th metatarsal which may be from prior infection or trauma. 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 The patient denies fever, chills, SOB, nausea, vomit or other symptoms. Admitted and started on antibiotics . Nephrology has been consulted for continuation of HD . Last HD was on the 28 th Patient with no shortness of breath . 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 Social History Smoke: No ALCOHOL: occassional Lives: with Family Allergies: Coded Allergies: Baclofen (Verified Allergy, Severe, 07/02/17) Sulfa Antibiotics (Unverified Allergy, Unknown, 11/20/22) Sulfamethoxazole w/Trimethoprim (Verified Allergy, Unknown, 05/14/17) Home Meds Active Scripts Cephalexin Monohydrate (Cephalexin) 500 Mg Cap, 500 MG PO Q6HR for 7 Days, #28 CAP Prov:FITO CRAWFORD DO 07/28/24 Apixaban Base (ELIQUIS) 5 Mg Tab, 10 MG PO BID for 7 Days, #14 TAB 10MG BID X 7 DAYS THEN 5MG PO BID FOR AT LEAST 6 MONTHS FOR DVT/PE TREATMENT Prov:CAM DENTON MD 11/24/22 Apixaban Base (ELIQUIS) 5 Mg Tab, 5 MG PO BID, #180 TAB Prov:CAM DENTON MD 11/24/22 Nifedipine (Nifedipine Er) 30 Mg Tab, 1 TAB PO DAILY, #30 TAB 0 Refills Prov:LOLY LEROY MDFA 04/06/17 Reported Medications Gabapentin (Gabapentin) 300 Mg Cap, 300 MG PO TID, MG 11/21/22 Melatonin (KP MELATONIN) 3 Mg Tab, 1 TAB PO QPM, #30 TAB 2 Refills 11/21/22 Acetaminophen (Acetaminophen) 325 Mg Tab, 325 MG PO TIDPRN, TAB 11/21/22 Simvastatin (Simvastatin) 40 Mg Tab, 40 MG PO DAILY for 30 Days 11/21/22 Sevelamer Carbonate (Renvela) 800 Mg Tab, 4 TAB PO TIDWM, #810 TAB 3 Refills 11/21/22 Midodrine HCl (Midodrine HCl) 10 Mg Tab, 10 MG PO DAILYP, TAB 11/21/22 Hydrocodone-Acetaminophen (Hydrocodone Bitartrate/AC 10-325 mg) 1 Tab Tab, 1 TAB PO QIDPRN, TAB 11/21/22 Glipizide (Glipizide) 5 Mg Tab, 5 MG PO DAILY, MG 11/21/22 Cholecalciferol (VITAMIN D3) 2,000 Unit Tab, 1 TAB PO DAILY, #30 TAB 5 Refills 11/21/22 Carvedilol (Carvedilol) 25 Mg Tab, 1 TAB PO BID, #180 TAB 1 Refill 11/21/22 Aspirin (Aspir-Low) 81 Mg Tab, 81 MG PO DAILY, MG 11/21/22 Cinacalcet Hydrochloride (Sensipar) 30 Mg Tab, 1 TAB PO DAILY, #30 TAB 11 Refills 02/26/18 Gabapentin (Gabapentin) 300 Mg Cap, 1 CAP PO TID, #90 CAP 5 Refills 02/26/18 Sevelamer Carbonate (Renvela) 800 Mg Tab, 3 TAB PO TID, #810 TAB 3 Refills 02/26/18 Carvedilol (COREG) 12.5 Mg Tab, 12.5 MG PO BID, TAB 02/26/18 Cholecalciferol (VITAMIN D3) 2,000 Unit Tab, 2000 UNIT PO DAILY, TAB 02/26/18 Simvastatin (Zocor) 40 Mg Tab, 1 TAB PO DAILY, #90 TAB 1 Refill 02/26/18 Aspirin (Asa) 81 Mg Ch, 81 MG PO DAILY 02/26/18 Current Medications Current Medications Medications (Trade) Dose Ordered Sig/Didier Route PRN Reason Start Time Stop Time Status Last Admin Diagnostic Test (Pha) (Accu-Chek Comfort Curve T) 1 strip ACHS 09/16/24 07:00 09/16/24 12:20 Insulin Human Regular (InsuLIN R) [facility] 09/16/24 22:00 09/16/24 00:25 DC Insulin Human Regular (InsuLIN R) [facility] 09/16/24 07:00 09/16/24 00:25 DC Dextrose 50 ml UD PRN IV Blood Sugar LESS THAN 60 09/15/24 23:15 Vancomycin HCl 0 ml @ 0 mls/hr UD IV 09/15/24 23:15 Vancomycin HCl 200 ml @ 133.333 mls/hr Q2H IV 09/15/24 23:45 09/16/24 03:14 DC 09/16/24 01:45 Morphine Sulfate 2 mg Q6HP PRN IV PAIN SCALE 7 THRU 10 09/16/24 00:00 09/16/24 00:17 Acetaminophen/ Hydrocodone Bitart ([place] 5/325MG Tab) 1 tab Q6HR PRN PO PAIN SCALE 1 THRU 6 09/16/24 00:00 09/16/24 13:24 DC 09/16/24 09:13 Insulin Human Regular (InsuLIN R) [facility] 09/16/24 00:00 Insulin Human Regular (InsuLIN R) [facility] 09/16/24 00:00 09/16/24 12:20 Amlodipine Besylate (Norvasc Tablet) 5 mg DAILY PO 09/16/24 10:00 09/16/24 13:24 DC 09/16/24 12:42 Piperacillin Sod/ Tazobactam Sod 50 ml @ 12.5 mls/hr Q8HR IV 09/16/24 14:00 09/16/24 13:36 Enoxaparin Sodium (Lovenox) 40 mg DAILY SC 09/16/24 10:00 09/16/24 09:41 DC Heparin Sodium (Porcine) 5,000 units Q12HR SC 09/16/24 10:00 09/16/24 10:06 Aspirin 81 mg DAILY PO 09/17/24 10:00 Carvedilol (Coreg Tablet) 12.5 mg BID PO 09/16/24 22:00 Gabapentin (Neurontin Capsule) 300 mg TID PO 09/16/24 14:00 09/16/24 15:24 DC Acetaminophen/ Hydrocodone Bitart ([place] 10/325MG Tab) 1 tab QIDPRN PO 09/16/24 18:00 09/16/24 15:24 DC Nifedipine (Procardia Xl (Time-Release)) 30 mg DAILY PO 09/17/24 10:00 09/16/24 13:26 DC Melatonin (Melatonin) 5 mg HS PO 09/16/24 22:00 Nifedipine (Procardia Xl (Time-Release)) 30 mg DAILY PO 09/16/24 13:30 Gabapentin (Neurontin Capsule) 100 mg TID PO 09/16/24 15:30 Acetaminophen/ Hydrocodone Bitart ([place] 10/325MG Tab) 1 tab QIDPRN PRN PO moderate pain 4-6 09/16/24 18:00 Review of Systems 12 point ROS negative except as in HPI Vital Signs Vital Signs Date Time Temp Pulse Resp B/P (MAP) Pulse Ox O2 Delivery O2 Flow Rate FiO2 09/16/24 12:42 190/74 09/16/24 12:00 98.1 82 13 100 98.1 09/16/24 10:14 Room Air* 0 21 Physical Exam General Appearance: Alert, Oriented X3, Cooperative, No acute distress HEENT: Atraumatic, PERRLA, Mucous membr. moist/pink Respiratory: Clear to auscultation Cardiovascular: Regular rate, Normal S1, Normal S2 Abdominal: Normal bowel sounds, Soft, No tenderness Extremities: Left BKA .Ulcer right foot Neuro: No focal deficits Labs/Diagnostic Data Labs Test 09/16/24 07:29 09/16/24 04:15 09/15/24 19:00 Range/Units POC Glucose 112 H 70-106 mg/dl White Blood Count 6.5 4.4-10.8 10^3/uL Red Blood Count 4.25 L 4.5-5.90 10^6/uL Hemoglobin 13.4 L 13.5-17.5 g/dL Hematocrit 40.3 L 41.0-53.0 % Mean Corpuscular Volume 94.9 80.0-100.0 fL Mean Corpuscular Hemoglobin 31.5 28.0-32.0 pg Mean Corpuscular Hemoglobin Concent 33.2 32.0-36.0 g/dL Red Cell Distribution Width 14.2 11.8-14.3 % Platelet Count 157 140-450 10^3/uL Mean Platelet Volume 8.0 6.9-10.8 fL Neutrophils (%) (Auto) 66.2 37.0-80.0 % Lymphocytes (%) (Auto) 17.6 10.0-50.0 % Monocytes (%) (Auto) 12.0 0.0-12.0 % Eosinophils (%) (Auto) 3.4 0.0-7.0 % Basophils (%) (Auto) 0.8 0.0-2.0 % Neutrophils # (Auto) 4.3 1.6-8.6 10 ^3/uL Lymphocytes # (Auto) 1.1 0.4-5.4 10 ^3/uL Monocytes # (Auto) 0.8 0-1.3 10 ^3/uL Eosinophils # (Auto) 0.2 0-0.8 10 ^3/uL Basophils # (Auto) 0 0-0.2 10 ^3/uL Nucleated Red Blood Cells 0.0 % Sodium Level 139 136-145 mmol/L Potassium Level 3.8 3.5-5.1 mmol/L Chloride Level 92 L 98-107 mmol/L Carbon Dioxide Level 29 20-31 mmol/L Anion Gap 18 H 5-15 Blood Urea Nitrogen 46 H 9-23 mg/dL Creatinine 7.85 H 0.700-1.30 mg/dL Glomerular Filtration Rate Calc 8 >90 mL/min BUN/Creatinine Ratio 5.9 L 10.0-20.0 Serum Glucose 69 #L 74-106 mg/dL Calcium Level 10.1 8.7-10.4 mg/dL Total Bilirubin 0.4 0.2-1.0 mg/dL Aspartate Amino Transferase (AST) 12 L 13-40 U/L Alanine Aminotransferase (ALT) 17 7-40 U/L Alkaline Phosphatase 174 H 46-116 U/L Total Protein 8.3 H 5.7-8.2 g/dL Albumin 4.8 3.2-4.8 g/dL Erythrocyte Sedimentation Rate 34 H 0-20 mm/hr Hemoglobin A1c 5.9 H <5.7 % A1C Assessment 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 On Coreg and Nifedipine Plan discussed with: Other LAUREN BANGURA MD Sep 16, 2024 15:43
[2024-09-16] MEDS: GABAPENTIN 300 MG CAP PO SCH (17:24)
[2024-09-16] MEDS ORDERED: HYDROcodone-ACET 10/325MG TAB PO SCH (18:00)
[2024-09-16 19:30] VITALS: PULSE 86; RESP 16; O2SAT 99
[2024-09-16] MEDS: SODIUM CHL 0.9% 1000 ML BAG XX ONE (19:41)
[2024-09-16] MEDS: MELATONIN 5 MG TAB PO SCH (22:00)
[2024-09-16] MEDS: CARVEDILOL 12.5 MG TAB PO SCH (22:08)
[2024-09-16 22:42] VITALS: BP 177/71; PULSE 84; RESP 18; TEMP 98; O2SAT 94
[2024-09-16 22:56] VITALS: PULSE 84; RESP 18; O2SAT 98
[2024-09-17 01:00] VITALS: BP 173/84; PULSE 77; RESP 18; TEMP 97.8; O2SAT 96
[2024-09-17 05:27] LABS: Hematocrit 36.4 % (41.0-53.0); Hemoglobin 12.1 g/dL (13.5-17.5); Mean Corpuscular Hemoglobin 31.8 pg (28.0-32.0); Mean Corpuscular Volume 95.6 fL (80.0-100.0); Nucleated Red Blood Cells % 0.2 %
[2024-09-17 05:30] LABS: Calcium 10.0 mg/dL (8.7-10.4); Potassium 4.2 mmol/L (3.5-5.1); Sodium 139 mmol/L (136-145)
[2024-09-17 05:31] LABS: Anion Gap 14 (5-15); Carbon Dioxide 29 mmol/L (20-31)
[2024-09-17 05:33] LABS: Chloride 96 mmol/L (98-107)
[2024-09-17 05:36] LABS: BUN/Creatinine Ratio 4.9 (10.0-20.0); Glucose 95 mg/dL (74-106)
[2024-09-17 05:57] LABS: Blood Urea Nitrogen 33 mg/dL (9-23)
[2024-09-17 08:00] VITALS: RESP 18
[2024-09-17 09:21] VITALS: BP 148/80; PULSE 68; RESP 20; TEMP 98.3; O2SAT 97
--- NOTE | 2024-09-17 09:33 | DVHPN2 ---
Progress Note - Dictate Date Seen: Sep 17, 2024 Medical Necessity Reason Pt with a Central, PICC or Fol: No Subjective no acute issues overnight . Dialyzed yesterday . For probable amputation of toes in am vital signs Vital Sign Date Time Temp Pulse Resp B/P (MAP) Pulse Ox O2 Delivery O2 Flow Rate FiO2 09/17/24 09:21 98.3 68 20 148/80 (102) 97 98.3 09/16/24 22:56 Nasal Cannula* 2 28 Total Intake and Output 09/16/24 09/16/24 09/17/24 15:00 23:00 07:00 Intake Total 12.5 ml 37.5 ml 600 ml Balance 12.5 ml 37.5 ml 600 ml medications Current Medications Medications Dose Ordered Sig/Didier Route Start Time Stop Time Status Last Admin Dose Admin Diagnostic Test (Pha) 1 strip ACHS 09/16/24 07:00 09/17/24 05:17 1 STRIP Dextrose 50 ml UD PRN IV 09/15/24 23:15 Vancomycin HCl 0 ml @ 0 mls/hr UD IV 09/15/24 23:15 Morphine Sulfate 2 mg Q6HP PRN IV 09/16/24 00:00 09/16/24 19:48 2 MG Insulin Human Regular HS SC 09/16/24 00:00 09/16/24 22:12 3 UNITS Insulin Human Regular AC SC 09/16/24 00:00 09/16/24 12:20 2 UNITS Piperacillin Sod/ Tazobactam Sod 50 ml @ 12.5 mls/hr Q8HR IV 09/16/24 14:00 09/17/24 04:17 12.5 MLS/HR Heparin Sodium (Porcine) 5,000 units Q12HR SC 09/16/24 10:00 09/16/24 22:10 5,000 UNITS Aspirin 81 mg DAILY PO 09/17/24 10:00 Carvedilol 12.5 mg BID PO 09/16/24 22:00 09/16/24 22:08 12.5 MG Melatonin 5 mg HS PO 09/16/24 22:00 Nifedipine 30 mg DAILY PO 09/16/24 13:30 09/16/24 16:00 30 MG Gabapentin 100 mg TID PO 09/16/24 15:30 09/17/24 04:30 100 MG Acetaminophen/ Hydrocodone Bitart 1 tab QIDPRN PRN PO 09/16/24 18:00 objective General Appearance: Alert, Oriented X3, Cooperative, No acute distress HEENT: Atraumatic, PERRLA, Mucous membr. 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 Continue with IV antibiotics . For probable amputation of toes in AM Plan discussed with: Patient LAUREN BANGURA MD Sep 17, 2024 09:33
--- NOTE | 2024-09-17 10:40 | DVHINCON2 ---
Date of service: Sep 17, [address] Eliseo MD Reason for Consultation Osteomyelitis right great and 2nd toes. History of Present Illness López Baez is a 54 year-old male, with a past medical history of DM, HTN, Cancer, Stroke, DKA, hyperlipidemia CKD Stage 5 (on dialysis MWF at [facility]). The patient was sent to the ER from my office for evaluation of possible osteomyelitis of the right great and 2nd toes. The patient reports that he went to [facility] on July 28, 2024 and had x-rays done and was given oral antibiotics and was asked to follow up with his doctor for further evaluation. The patient reports that his condition has gotten progressively worse, and that his 2nd right toe shows exposed bone. The patient was seen at bed side today along with his daughter who was present. Past Medical History DM II, HTN, CVA, Cancer, CKD, ESRD on Dialysis stage 5. Past Surgical History Appendectomy, left BKA. Family History: Patient reports no known family medical history. Family History Non-contributory to management of this case. Social History Denies alcohol, tobacco, or illicit drug use. Allergies: Coded Allergies: Baclofen (Verified Allergy, Severe, 07/02/17) Sulfa Antibiotics (Unverified Allergy, Unknown, 11/20/22) Sulfamethoxazole w/Trimethoprim (Verified Allergy, Unknown, 05/14/17) Home Meds Active Scripts Cephalexin Monohydrate (Cephalexin) 500 Mg Cap, 500 MG PO Q6HR for 7 Days, #28 CAP Prov:FITO CRAWFORD DO 07/28/24 Apixaban Base (ELIQUIS) 5 Mg Tab, 10 MG PO BID for 7 Days, #14 TAB 10MG BID X 7 DAYS THEN 5MG PO BID FOR AT LEAST 6 MONTHS FOR DVT/PE TREATMENT Prov:CAM DENTON MD 11/24/22 Apixaban Base (ELIQUIS) 5 Mg Tab, 5 MG PO BID, #180 TAB Prov:CAM DENTON MD 11/24/22 Nifedipine (Nifedipine Er) 30 Mg Tab, 1 TAB PO DAILY, #30 TAB 0 Refills Prov:LOLY LEROY 04/06/17 Reported Medications Gabapentin (Gabapentin) 300 Mg Cap, 300 MG PO TID, MG 11/21/22 Melatonin (KP MELATONIN) 3 Mg Tab, 1 TAB PO QPM, #30 TAB 2 Refills 11/21/22 Acetaminophen (Acetaminophen) 325 Mg Tab, 325 MG PO TIDPRN, TAB 11/21/22 Simvastatin (Simvastatin) 40 Mg Tab, 40 MG PO DAILY for 30 Days 11/21/22 Sevelamer Carbonate (Renvela) 800 Mg Tab, 4 TAB PO TIDWM, #810 TAB 3 Refills 11/21/22 Midodrine HCl (Midodrine HCl) 10 Mg Tab, 10 MG PO DAILYP, TAB 11/21/22 Hydrocodone-Acetaminophen (Hydrocodone Bitartrate/AC 10-325 mg) 1 Tab Tab, 1 TAB PO QIDPRN, TAB 11/21/22 Glipizide (Glipizide) 5 Mg Tab, 5 MG PO DAILY, MG 11/21/22 Cholecalciferol (VITAMIN D3) 2,000 Unit Tab, 1 TAB PO DAILY, #30 TAB 5 Refills 11/21/22 Carvedilol (Carvedilol) 25 Mg Tab, 1 TAB PO BID, #180 TAB 1 Refill 11/21/22 Aspirin (Aspir-Low) 81 Mg Tab, 81 MG PO DAILY, MG 11/21/22 Cinacalcet Hydrochloride (Sensipar) 30 Mg Tab, 1 TAB PO DAILY, #30 TAB 11 Refills 02/26/18 Gabapentin (Gabapentin) 300 Mg Cap, 1 CAP PO TID, #90 CAP 5 Refills 02/26/18 Sevelamer Carbonate (Renvela) 800 Mg Tab, 3 TAB PO TID, #810 TAB 3 Refills 02/26/18 Carvedilol (COREG) 12.5 Mg Tab, 12.5 MG PO BID, TAB 02/26/18 Cholecalciferol (VITAMIN D3) 2,000 Unit Tab, 2000 UNIT PO DAILY, TAB 02/26/18 Simvastatin (Zocor) 40 Mg Tab, 1 TAB PO DAILY, #90 TAB 1 Refill 02/26/18 Aspirin (Asa) 81 Mg Ch, 81 MG PO DAILY 02/26/18 Current Medications Current Medications Medications (Trade) Dose Ordered Sig/Didier Route PRN Reason Start Time Stop Time Status Last Admin Insulin Human Regular (InsuLIN R) HS SC 09/16/24 22:00 09/16/24 00:25 DC Piperacillin Sod/ Tazobactam Sod 50 ml @ 12.5 mls/hr Q8HR IV 09/16/24 14:00 09/17/24 04:17 Aspirin 81 mg DAILY PO 09/17/24 10:00 Carvedilol (Coreg Tablet) 12.5 mg BID PO 09/16/24 22:00 09/16/24 22:08 Gabapentin (Neurontin Capsule) 300 mg TID PO 09/16/24 14:00 09/16/24 15:24 DC Acetaminophen/ Hydrocodone Bitart ([place] 10/325MG Tab) 1 tab QIDPRN PO 09/16/24 18:00 09/16/24 15:24 DC Nifedipine (Procardia Xl (Time-Release)) 30 mg DAILY PO 09/17/24 10:00 09/16/24 13:26 DC Melatonin (Melatonin) 5 mg HS PO 09/16/24 22:00 Nifedipine (Procardia Xl (Time-Release)) 30 mg DAILY PO 09/16/24 13:30 09/16/24 16:00 Gabapentin (Neurontin Capsule) 100 mg TID PO 09/16/24 15:30 09/17/24 04:30 Acetaminophen/ Hydrocodone Bitart ([place] 10/325MG Tab) 1 tab QIDPRN PRN PO moderate pain 4-6 09/16/24 18:00 Review of Systems Constitutional: Yes: Malaise; No: Fever, Chills, Sweats, Weakness, Other Eyes: No: Pain, Vision change, Conjunctivae inflammation, Eyelid inflammation, Other, Redness ENT: No: Ear pain, Ear discharge, Nose pain, Nose discharge, Nose congestion, Mouth pain, Mouth swelling, Throat pain, Throat swelling, Other Respiratory: No: Cough, Dry, Shortness of breath, SOB with excertion, Wheezing, Hemoptysis, Pleuritic Pain, Sputum, Wheezing, Other Cardiovascular: No: Chest Pain, Palpitations, Orthopnea, Paroxysmal Noc. Dyspnea, Edema, Lt Headedness, Other Gastrointestinal: No: Nausea, Vomiting, Abdominal Pain, Diarrhea, Constipation, Melena, Hematochezia, Other Genitourinary: No Dysuria, No Frequency, No Incontinence, No Hematuria, No Retention, No Other Musculoskeletal: foot pain (right foot pain). OM right great and 2nd toes. Skin: No: Rash, Lesions, Jaundice, Bruising, Other Neurological: No: Weakness, Numbness, Incoordination, Change in speech, Confusion, Seizures, Other Vital Signs Vital Signs Date Time Temp Pulse Resp B/P (MAP) Pulse Ox O2 Delivery O2 Flow Rate FiO2 09/17/24 09:21 98.3 68 20 148/80 (102) 97 98.3 09/16/24 22:56 Nasal Cannula* 2 28 Physical Exam General Appearance: Alert, Oriented X3, Cooperative, No acute distress HEENT: Atraumatic, PERRLA, Mucous membr. moist/pink Respiratory: Clear to auscultation, Normal air movement Cardiovascular: Regular rate, Normal S1, Normal S2 Abdominal: Normal bowel sounds, Soft, No tenderness, No hepatospenomegaly, No masses Extremities: No clubbing, No cyanosis, No edema, Other (Amputation below the knee in left extremity, right foot with no pitting edema, wet ulcer on 2nd digit, exposed bone is noted at PIPJ, DP/PT +1/4 right foot. CFT 3 seconds right foot. Ulceration right great and 2nd toes with exposed bone 2nd toe and discharge noted form great and 2nd toes. No ascending cellulitis is noted. Foul odor is noted. Skin: No rashes, No breakdown Neuro: Antalgic gait due to BKA left with prothsesis. Normal speech, Cranial nerves 3-12 NL, Other (Decrease sensation on right foot. ) Psych/Mental Status: Mental status NL, Mood NL CT right foot: Osteomyelitis right great and 2nd toes. Venous study RLE is negative. Arterial study is pending. Labs/Diagnostic Data Labs Test 09/17/24 05:16 09/17/24 04:33 09/16/24 04:15 09/15/24 19:00 Range/Units POC Glucose 91 70-106 mg/dl White Blood Count 5.5 4.4-10.8 10^3/uL Red Blood Count 3.80 L 4.5-5.90 10^6/uL Hemoglobin 12.1 L 13.5-17.5 g/dL Hematocrit 36.4 L 41.0-53.0 % Mean Corpuscular Volume 95.6 80.0-100.0 fL Mean Corpuscular Hemoglobin 31.8 28.0-32.0 pg Mean Corpuscular Hemoglobin Concent 33.2 32.0-36.0 g/dL Red Cell Distribution Width 14.3 11.8-14.3 % Platelet Count 139 L 140-450 10^3/uL Mean Platelet Volume 7.9 6.9-10.8 fL Neutrophils (%) (Auto) 66.2 37.0-80.0 % Lymphocytes (%) (Auto) 13.8 10.0-50.0 % Monocytes (%) (Auto) 14.9 H 0.0-12.0 % Eosinophils (%) (Auto) 4.1 0.0-7.0 % Basophils (%) (Auto) 1.0 0.0-2.0 % Neutrophils # (Auto) 3.7 1.6-8.6 10 ^3/uL Lymphocytes # (Auto) 0.8 0.4-5.4 10 ^3/uL Monocytes # (Auto) 0.8 0-1.3 10 ^3/uL Eosinophils # (Auto) 0.2 0-0.8 10 ^3/uL Basophils # (Auto) 0.1 0-0.2 10 ^3/uL Nucleated Red Blood Cells 0.2 % Sodium Level 139 136-145 mmol/L Potassium Level 4.2 3.5-5.1 mmol/L Chloride Level 96 L 98-107 mmol/L Carbon Dioxide Level 29 20-31 mmol/L Anion Gap 14 5-15 Blood Urea Nitrogen 33 #H 9-23 mg/dL Creatinine 6.71 H 0.700-1.30 mg/dL Glomerular Filtration Rate Calc 9 >90 mL/min BUN/Creatinine Ratio 4.9 L 10.0-20.0 Serum Glucose 95 74-106 mg/dL Calcium Level 10.0 8.7-10.4 mg/dL Random Vancomycin Level 22.2 H 5-10 ug/mL Total Bilirubin 0.4 0.2-1.0 mg/dL Aspartate Amino Transferase (AST) 12 L 13-40 U/L Alanine Aminotransferase (ALT) 17 7-40 U/L Alkaline Phosphatase 174 H 46-116 U/L Total Protein 8.3 H 5.7-8.2 g/dL Albumin 4.8 3.2-4.8 g/dL Erythrocyte Sedimentation Rate 34 H 0-20 mm/hr Hemoglobin A1c 5.9 H <5.7 % A1C Microbiology Date/Time Source Procedure Growth Status 09/15/24 23:48 Blood Blood Culture - Preliminary NO GROWTH AFTER 24 HOURS OF INCUBATION. Resulted Assessment Primary Diagnosis: 1. Osteomyelitis right great and 2nd toes. 2. Chronic non-healing ulceration right great and 2nd toes. 3. Cellulitis right foot. Secondary Diagnosis: 1. DM II 2. HTN 3. CVA 4.CKD-Stage 5 5.Cancer 6. Hyperlipidemia Plan/Recommendation -Continue with IV antibiotics pending C&S results. -PICC line is pending for usp IV antibiotics 6-8 weeks. -Arterial study RLE is pending. -Further evaluation and management will depend on the patient's clinical progress and results of studies. -Discussed all treatment options with the patient and his daughter ranging from conservative to surgical intervention including amputation of the right great and 2nd toes at the MPJ. Pros and cons, risks and benefits of each option was fully discussed. Surgery was opted. We will with hold surgery pending results of arterial study RLE. -All questions and concerns were answered to the patient's and daughter's satisfaction. Thank you for your consultation. Plan discussed with: Patient AVILA MILLER DPM Sep 17, 2024 10:40
[2024-09-17 12:30] VITALS: BP 144/82; PULSE 80; RESP 18; TEMP 98.5; O2SAT 98
--- NOTE | 2024-09-17 13:22 | DVH ---
Indication: osteomyelitis Technique: Real- time ultrasound images of the lower extremity with grayscale, color, and spectral wave Doppler. Comparison: CT CT R FOOT WO CONTRAST on DOS: 09/15/24, XY R FOOT 3 VIEW XRAY on DOS: 07/28/24 Findings: Monophasic waveforms throughout the right lower extremity. On the color flow images, there is focal s hort segment severe stenosis of the proximal right SFA, image 6. Right lower extremity soft tissue ed matti. Peak systolic velocities are as follows (in cm/s): Right: Common femoral artery: 104 Profunda femoris: 71 Proximal superficial femoral: 115 Mid superficial femoral artery: 71 Distal superficial femoral artery: 143 Popliteal artery: 170 Posterior tibial artery: 29 Dorsalis pedis artery: 98 Impression: Severe stenosis of the proximal right SFA. Diffuse monophasic waveforms which May also suggest aortoiliac inflow disease. Elevated velocity within the right popliteal artery consistent with hemodynamically significant steno sis.
[2024-09-17 17:30] VITALS: BP 182/99; PULSE 86; RESP 18; TEMP 97.9; O2SAT 100
--- NOTE | 2024-09-17 17:35 | DVHCONRES ---
Date Seen: Sep 17, 2024 Resident Creating Document: AMELIA COYLE Jr., MD Referring Physician kelsy Reason for Consultation Right leg peripheral vascular disease with toe osteomyelitis History of Present Illness López Baez is a 54 year-old male, with a past medical history of DM, HTN, Cancer, Stroke, DKA, hyperlipidemia CKD Stage 5 (on dialysis MWF at [facility]). The patient presented to the ED with a chief complain of 1 month of right foot 2nd digit sharp pain that started after a traumatic toe nail avulsion, that created an ulcer in 2nd digit nail bed, associated with foot swelling. The patient states he was sent to the ED by landscape contractor, Dr. Velasquez, for possible admission of osteomyelitis. In the ED the CT scan of right foot showed Osteomyelitis of the 1st and 2nd digits involving the 1st distal phalanx, 2nd middle and distal phalanges in the distal aspect of the 2nd proximal phalanx. Soft tissue swelling and irregularity along the dorsal aspect of the 1st and 2nd digits at the level of the phalanges likely skin wounds.Chronic appearing deformity of the 5th metatarsal which may be from prior infection or trauma. 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 The patient denies fever, chills, SOB, nausea, vomit or other symptoms. Past Medical History DM, HTN, Cancer, Stroke, DKA, hyperlipidemia CKD Stage 5 (on dialysis MWF at [facility]). Past Surgical History Multiple AV fistulas Left femoral AV fistula Family History: Patient reports no known family medical history. Social History Nonsmoker nondrinker Allergies: Coded Allergies: Baclofen (Verified Allergy, Severe, 07/02/17) Sulfa Antibiotics (Unverified Allergy, Unknown, 11/20/22) Sulfamethoxazole w/Trimethoprim (Verified Allergy, Unknown, 05/14/17) Home Meds Active Scripts Cephalexin Monohydrate (Cephalexin) 500 Mg Cap, 500 MG PO Q6HR for 7 Days, #28 CAP Prov:FITO CRAWFORD DO 07/28/24 Apixaban Base (ELIQUIS) 5 Mg Tab, 10 MG PO BID for 7 Days, #14 TAB 10MG BID X 7 DAYS THEN 5MG PO BID FOR AT LEAST 6 MONTHS FOR DVT/PE TREATMENT Prov:CAM DENTON MD 11/24/22 Apixaban Base (ELIQUIS) 5 Mg Tab, 5 MG PO BID, #180 TAB Prov:CAM DENTON MD 11/24/22 Nifedipine (Nifedipine Er) 30 Mg Tab, 1 TAB PO DAILY, #30 TAB 0 Refills Prov:LOLY LEROY MDFACP 04/06/17 Reported Medications Melatonin (KP MELATONIN) 3 Mg Tab, 1 TAB PO QPM, #30 TAB 2 Refills 11/21/22 Acetaminophen (Acetaminophen) 325 Mg Tab, 325 MG PO TIDPRN, TAB 11/21/22 Simvastatin (Simvastatin) 40 Mg Tab, 40 MG PO DAILY for 30 Days 11/21/22 Sevelamer Carbonate (Renvela) 800 Mg Tab, 4 TAB PO TIDWM, #810 TAB 3 Refills 11/21/22 Midodrine HCl (Midodrine HCl) 10 Mg Tab, 10 MG PO DAILYP, TAB 11/21/22 Hydrocodone-Acetaminophen (Hydrocodone Bitartrate/AC 10-325 mg) 1 Tab Tab, 1 TAB PO QIDPRN, TAB 11/21/22 Glipizide (Glipizide) 5 Mg Tab, 5 MG PO DAILY, MG 11/21/22 Cholecalciferol (VITAMIN D3) 2,000 Unit Tab, 1 TAB PO DAILY, #30 TAB 5 Refills 11/21/22 Carvedilol (Carvedilol) 25 Mg Tab, 1 TAB PO BID, #180 TAB 1 Refill 11/21/22 Aspirin (Aspir-Low) 81 Mg Tab, 81 MG PO DAILY, MG 11/21/22 Cinacalcet Hydrochloride (Sensipar) 30 Mg Tab, 1 TAB PO DAILY, #30 TAB 11 Refills 02/26/18 Gabapentin (Gabapentin) 300 Mg Cap, 1 CAP PO TID, #90 CAP 5 Refills 02/26/18 Sevelamer Carbonate (Renvela) 800 Mg Tab, 3 TAB PO TID, #810 TAB 3 Refills 02/26/18 Carvedilol (COREG) 12.5 Mg Tab, 12.5 MG PO BID, TAB 02/26/18 Cholecalciferol (VITAMIN D3) 2,000 Unit Tab, 2000 UNIT PO DAILY, TAB 02/26/18 Simvastatin (Zocor) 40 Mg Tab, 1 TAB PO DAILY, #90 TAB 1 Refill 02/26/18 Aspirin (Asa) 81 Mg Ch, 81 MG PO DAILY 02/26/18 Current Medications Current Medications Medications (Trade) Dose Ordered Sig/Didier Route PRN Reason Start Time Stop Time Status Last Admin Insulin Human Regular (InsuLIN R) HS SC 09/16/24 22:00 09/16/24 00:25 DC Aspirin 81 mg DAILY PO 09/17/24 10:00 09/17/24 12:09 Carvedilol (Coreg Tablet) 12.5 mg BID PO 09/16/24 22:00 09/17/24 12:08 Acetaminophen/ Hydrocodone Bitart ([place] 10/325MG Tab) 1 tab QIDPRN PO 09/16/24 18:00 09/16/24 15:24 DC Nifedipine (Procardia Xl (Time-Release)) 30 mg DAILY PO 09/17/24 10:00 09/16/24 13:26 DC Melatonin (Melatonin) 5 mg HS PO 09/16/24 22:00 Acetaminophen/ Hydrocodone Bitart ([place] 10/325MG Tab) 1 tab QIDPRN PRN PO moderate pain 4-6 09/16/24 18:00 Gabapentin (Neurontin Capsule) 300 mg TID PO 09/17/24 22:00 UNV Review of Systems All systems reviewed otherwise negative otherwise HPI. Vital Signs Vital Signs Date Time Temp Pulse Resp B/P (MAP) Pulse Ox O2 Delivery O2 Flow Rate FiO2 09/17/24 12:30 98.5 80 18 144/82 (102) 98 98.5 09/17/24 08:00 Nasal Cannula* 2 28 Physical Exam Vascular exam carotids no carotid bruits. Femoral pulses bilaterally palpable the left leg has a femoral AV graft. He has a left below-knee amputation. Right lower extremity weakly palpable pedal pulses Labs/Diagnostic Data Labs Test 09/17/24 17:16 09/17/24 04:33 09/16/24 04:15 09/15/24 19:00 Range/Units POC Glucose 146 H 70-106 mg/dl White Blood Count 5.5 4.4-10.8 10^3/uL Red Blood Count 3.80 L 4.5-5.90 10^6/uL Hemoglobin 12.1 L 13.5-17.5 g/dL Hematocrit 36.4 L 41.0-53.0 % Mean Corpuscular Volume 95.6 80.0-100.0 fL Mean Corpuscular Hemoglobin 31.8 28.0-32.0 pg Mean Corpuscular Hemoglobin Concent 33.2 32.0-36.0 g/dL Red Cell Distribution Width 14.3 11.8-14.3 % Platelet Count 139 L 140-450 10^3/uL Mean Platelet Volume 7.9 6.9-10.8 fL Neutrophils (%) (Auto) 66.2 37.0-80.0 % Lymphocytes (%) (Auto) 13.8 10.0-50.0 % Monocytes (%) (Auto) 14.9 H 0.0-12.0 % Eosinophils (%) (Auto) 4.1 0.0-7.0 % Basophils (%) (Auto) 1.0 0.0-2.0 % Neutrophils # (Auto) 3.7 1.6-8.6 10 ^3/uL Lymphocytes # (Auto) 0.8 0.4-5.4 10 ^3/uL Monocytes # (Auto) 0.8 0-1.3 10 ^3/uL Eosinophils # (Auto) 0.2 0-0.8 10 ^3/uL Basophils # (Auto) 0.1 0-0.2 10 ^3/uL Nucleated Red Blood Cells 0.2 % Sodium Level 139 136-145 mmol/L Potassium Level 4.2 3.5-5.1 mmol/L Chloride Level 96 L 98-107 mmol/L Carbon Dioxide Level 29 20-31 mmol/L Anion Gap 14 5-15 Blood Urea Nitrogen 33 #H 9-23 mg/dL Creatinine 6.71 H 0.700-1.30 mg/dL Glomerular Filtration Rate Calc 9 >90 mL/min BUN/Creatinine Ratio 4.9 L 10.0-20.0 Serum Glucose 95 74-106 mg/dL Calcium Level 10.0 8.7-10.4 mg/dL Random Vancomycin Level 22.2 H 5-10 ug/mL Total Bilirubin 0.4 0.2-1.0 mg/dL Aspartate Amino Transferase (AST) 12 L 13-40 U/L Alanine Aminotransferase (ALT) 17 7-40 U/L Alkaline Phosphatase 174 H 46-116 U/L Total Protein 8.3 H 5.7-8.2 g/dL Albumin 4.8 3.2-4.8 g/dL Erythrocyte Sedimentation Rate 34 H 0-20 mm/hr Hemoglobin A1c 5.9 H <5.7 % A1C Microbiology Date/Time Source Procedure Growth Status 09/15/24 23:48 Blood Blood Culture - Preliminary NO GROWTH AFTER 24 HOURS OF INCUBATION. Resulted Indication: osteomyelitis Technique: Real- time ultrasound images of the lower extremity with grayscale, color, and spectral wave Doppler. Comparison: CT CT R FOOT WO CONTRAST on DOS: 09/15/24, XY R FOOT 3 VIEW XRAY on DOS: 07/28/24 Findings: Monophasic waveforms throughout the right lower extremity. On the color flow images, there is focal short segment severe stenosis of the proximal right SFA, image 6. Right lower extremity soft tissue edema. Peak systolic velocities are as follows (in cm/s): Right: Common femoral artery: 104 Profunda femoris: 71 Proximal superficial femoral: 115 Mid superficial femoral artery: 71 Distal superficial femoral artery: 143 Popliteal artery: 170 Posterior tibial artery: 29 Dorsalis pedis artery: 98 Impression: Severe stenosis of the proximal right SFA. Diffuse monophasic waveforms which May also suggest aortoiliac inflow disease. Elevated velocity within the right popliteal artery consistent with hemodynamically significant stenosis. Assessment Right leg significant peripheral vascular disease with osteomyelitis of the foot. We will plan on performing a right leg arteriogram with possible endovascular revascularization in the morning. Patient and family are aware and willing to proceed. Plan/Recommendation Right leg significant peripheral vascular disease with osteomyelitis of the foot. We will plan on performing a right leg arteriogram with possible endovascular revascularization in the morning. Patient and family are aware and willing to proceed. Plan discussed with: Patient AMELIA COYLE Jr., MD Sep 17, 2024 17:35
[2024-09-17] MEDS: hydrALAZINE HCL 20 MG/ML VL IV PRN (19:06)
--- NOTE | 2024-09-17 19:17 | DVHPNRES ---
Progress Note Date Seen: Sep 17, 2024 Resident Creating Document: RUSTY LUCERO Medical Necessity Reason Pt with a Central, PICC or Fol: No Subjective Review of Systems Patient is a 54-year-old male with a past medical history of diabetes mellitus, hypertension, stroke, hyperlipidemia, ESRD, MICHAEL presented to the ED with a chief complain of 1 month of right foot 2nd digit sharp pain that started after a traumatic toe nail avulsion, that created an ulcer in 2nd digit nail bed, associated with foot swelling. The patient states he was sent to the ED by doctor for possible admission of osteomyelitis. CT scan of right foot showed Osteomyelitis of the 1st and 2nd digits involving the 1st distal phalanx, 2nd middle and distal phalanges in the distal aspect of the 2nd proximal phalanx. Soft tissue swelling and irregularity along the dorsal aspect of the 1st and 2nd digits at the level of the phalanges likely skin wounds. Chronic appearing deformity of the 5th metatarsal which may be from prior infection or trauma. 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 The patient denies fever, chills, SOB, nausea, vomit or other symptoms. 09/17/2024: Patient done with dialysis yesterday, removed 2.5 L. Patient consulted with foot doctor and decided to surgery tomorrow. Patient shows right- sided weakness. Extremity Aterial Study- Severe stenosis of the proximal right SFA. Diffuse monophasic waveforms which May also suggest aortoiliac inflow disease. Elevated velocity within the right popliteal artery consistent with hemodynamically significant stenosis. Objective vital signs Vital Sign Date Time Temp Pulse Resp B/P (MAP) Pulse Ox O2 Delivery O2 Flow Rate FiO2 09/17/24 19:06 182/99 09/17/24 17:30 97.9 86 18 100 97.9 09/17/24 08:00 Nasal Cannula* 2 28 Total Intake and Output 09/16/24 09/16/24 09/17/24 15:00 23:00 07:00 Intake Total 12.5 ml 37.5 ml 600 ml Balance 12.5 ml 37.5 ml 600 ml medications Current Medications Medications Dose Ordered Sig/Didier Route Start Time Stop Time Status Last Admin Dose Admin Diagnostic Test (Pha) 1 strip ACHS 09/16/24 07:00 09/17/24 12:42 1 STRIP Dextrose 50 ml UD PRN IV 09/15/24 23:15 Vancomycin HCl 0 ml @ 0 mls/hr UD IV 09/15/24 23:15 Morphine Sulfate 2 mg Q6HP PRN IV 09/16/24 00:00 09/16/24 19:48 2 MG Insulin Human Regular HS SC 09/16/24 00:00 09/16/24 22:12 3 UNITS Insulin Human Regular AC SC 09/16/24 00:00 09/17/24 12:43 2 UNITS Piperacillin Sod/ Tazobactam Sod 50 ml @ 12.5 mls/hr Q8HR IV 09/16/24 14:00 09/17/24 14:44 12.5 MLS/HR Heparin Sodium (Porcine) 5,000 units Q12HR SC 09/16/24 10:00 09/17/24 12:42 5,000 UNITS Aspirin 81 mg DAILY PO 09/17/24 10:00 09/17/24 12:09 81 MG Carvedilol 12.5 mg BID PO 09/16/24 22:00 09/17/24 12:08 12.5 MG Melatonin 5 mg HS PO 09/16/24 22:00 Nifedipine 30 mg DAILY PO 09/16/24 13:30 09/17/24 12:09 30 MG Acetaminophen/ Hydrocodone Bitart 1 tab QIDPRN PRN PO 09/16/24 18:00 Gabapentin 300 mg TID PO 09/17/24 22:00 Hydralazine HCl 10 mg Q6HP PRN IV 09/17/24 18:45 09/17/24 19:06 10 MG Examination General Appearance: Cooperative. Well developed. Well nourished. NAD Head Exam: Normal inspection Neck Exam: Normal inspection. Non-tender. Normal alignment Pulmonary/Respiratory: Chest non-tender. Clear bilateral breath sounds, no crackles, no wheezing. Cardiovascular/Chest: Regular rate and rhythm. No murmurs. No JVD. Peripheral Pulses: 2+ Radial (R). 2+ Radial (L). 2+ Pedal (R). 2+ Pedal (L) Abdominal Exam: Normal bowel sounds. Soft. normal abdomen, no visible veins, Nontender. No hepatospenomegaly. No masses Ankle Exam: Negative ankle edema Lower extremities: Negative lower extremity edema Neuro/Mental Status: A&O x4. Coherent. Thoughts/Psych: Normal thought pattern. Appropriate mood and affect. Good judgement and insight Skin Exam: Normal inspection. Normal color. Warm. Dry laboratory and microbiology Laboratory Tests 09/17/24 04:33 Test 09/17/24 04:33 Range/Units Serum Glucose 95 74-106 mg/dL Microbiology Date/Time Source Procedure Growth Status 09/15/24 23:48 Blood Blood Culture - Preliminary NO GROWTH AFTER 24 HOURS OF INCUBATION. Resulted Labs and/or images reviewed: Labs reviewed by me, Image(s) reviewed by me (RN) Problem List/Assessment/Plan Problem List/Assessment/Plan #ESRD -on dialysis MWF at [facility] -nephrology consult (Dr. Palma) - scheduled for HD tomorrow #Diabetic foot #Osteomyelitis of the Right foot -Foot CT- Osteomyelitis of the 1st and 2nd digits involving the 1st distal phalanx, 2nd middle and distal phalanges in the distal aspect of the 2nd proximal phalanx. -Extremity Aterial Study- Severe stenosis of the proximal right SFA. Diffuse monophasic waveforms which May also suggest aortoiliac inflow disease. Elevated velocity within the right popliteal artery consistent with hemodynamically significant stenosis. 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 daily - carvedilol 12.5 mg p.o. b.i.d. #Hyperlipidemia -Atorvastatin 40mg po qd Low Carbohydrate diet PUD prophylaxis: protonix 40mg DVT prophylaxis: Levonox 40mg Goals of care: Full code, discussed for >16 minutes on 09/17/24 Plan discussed with patient Plan discussed with Dr. Gomes Plan discussed with: Patient, Other My Orders My Orders Orders - RUSTY LUCERO RESIDENT Procedure Category Date Status Time Apply: BETHANY 09/17/24 In Process 11:40 Date of Service: Sep 17, 2024 Billing Provider: ROSALIA GOMES MD Common Visit Codes: 78746-[id number] INP/OBS CARE(HIGH) RSUTY LUCERO RESIDENT Sep 17, 2024 19:17 BRAXTON EVANGELISTA RESIDENT Sep 17, 2024 19:29 ROSALIA GOMES MD Sep 19, 2024 20:45
--- NOTE | 2024-09-17 19:54 | DVH ---
EXAM: XY CHEST PORTABLE HISTORY: pre-op requirement TECHNIQUE: 1 view of the chest COMPARISON: R RIB XRAY on DOS: 08/24/20 FINDINGS/IMPRESSION: LUNGS: No pleural effusion, consolidation, or pneumothorax . Low lung volumes, which cause crowding o f the bronchovascular markings. MEDIASTINUM: Unremarkable BONES: No acute osseous abnormality OTHER: Right subclavian axillary vascular endovascular stents.
[2024-09-17 20:20] LABS: INR 1.01 (0.9-1.15); Partial Thromboplastin Time 28.8 SEC (24.5-34.5); Prothrombin Time 10.7 sec (9.3-11.8)
[2024-09-17 21:00] VITALS: BP 143/72; PULSE 91; RESP 18; TEMP 97.4; O2SAT 98
[2024-09-17] MEDS: GABAPENTIN 300 MG CAP PO SCH (21:58)
[2024-09-18] VITALS (12 sets, daily range): BP systolic 108–135; BP diastolic 34–80; PULSE 70–98; RESP 12–22; TEMP 97–98.6; O2SAT 95–98
[2024-09-18 05:22] LABS: Anion Gap 17 (5-15); Carbon Dioxide 28 mmol/L (20-31); Potassium 4.2 mmol/L (3.5-5.1); Sodium 139 mmol/L (136-145)
[2024-09-18 05:24] LABS: Calcium 9.5 mg/dL (8.7-10.4)
[2024-09-18 05:28] LABS: BUN/Creatinine Ratio 5.6 (10.0-20.0); Glucose 99 mg/dL (74-106)
[2024-09-18 05:34] LABS: Blood Urea Nitrogen 49 mg/dL (9-23); Chloride 94 mmol/L (98-107)
[2024-09-18 05:42] LABS: Hematocrit 34.2 % (41.0-53.0); Hemoglobin 11.3 g/dL (13.5-17.5); Mean Corpuscular Hemoglobin 31.5 pg (28.0-32.0); Mean Corpuscular Volume 95.5 fL (80.0-100.0); Nucleated Red Blood Cells % 0.1 %
[2024-09-18] MEDS: SODIUM CHL 0.9% 1000 ML BAG XX ONE (07:00)
[2024-09-18] MEDS: IODIXANOL 320MG/ML 100ML BTL IV ONE ×2 (07:38→08:11)
[2024-09-18] MEDS: fentaNYL CITRATE 100 MCG/2 ML VL ONE (07:41)
--- NOTE | 2024-09-18 07:53 | ECG ---
[facility] Test Date: 2024-09-18 Test Time: 04:38:46 Pat Name: GEMMA BARR Department: Room: 0278 Gender: M [employer] [employer] Supervisor: FABIANA : [id number] Requested By: RUSTY YOU Order Number: [id number] Reading MD: Gabino Balderas Measurements Intervals [place] Rate: 75 P: 50 OR: 173 QRS: -1 QRSD: 110 T: 162 QT: 432 QTc: 483 Interpretive Statements Sinus rhythm Abnormal R-wave progression, late transition Abnormal T, consider ischemia, lateral leads Electronically Signed On 09-21-2024 21:39:09 PDT by Gabino Balderas Please click the below link to view image of tracing.
[2024-09-18] MEDS: LIDOCAINE 2%HCL (LOCAL ANESTH.) INJ 20ML MDV ONE (08:11)
[2024-09-18] MEDS: SODIUM CHL 0.9% 0 ML ONE (08:11)
[2024-09-18] MEDS: MIDAZOLAM HCL 2MG/2ML 2ml VIAL (1mg/ml) ONE (08:11)
[2024-09-18] MEDS: ANGIOMAX 250 MG VIAL IV ONE (08:11)
[2024-09-18] MEDS: HEPARIN SODIUM (PORCINE) 5000 UNITS/ML 1ML VIAL ONE (08:23)
[2024-09-18] MEDS: fentaNYL CITRATE 100 MCG/2 ML VL IV ONE (08:30)
--- NOTE | 2024-09-18 08:58 | DVHOP2 ---
Operative Report - 2 Report Details Date: 09/18/24 Preop Diagnosis: Right leg severe peripheral vascular disease Postop Diagnosis: Same Surgeon: Miko Drake MD Anesthesiologist: Conscious sedation Anesthesia: Local Consent: The patient was informed of the risks and benefits of the procedure. These include but are not limited to complications of anesthesia, postoperative infection, incomplete relief of symptoms, recurrence of symptoms, damage to blood vessels, nerves and tendons, deep venous thrombosis, pulmonary embolism and possible need for repeat surgery in the future. Estimated Blood Loss: Minimal Findings: Severe distal SFA stenosis in stent stenosis. Treated with a 5 x 200 mm balloon residual stenosis was 0. Indications for Surgery: Right foot osteomyelitis and severe peripheral vascular disease Name of Procedure Performed A left AV fistula gram, aortogram right lower extremity arteriogram SFA angioplasty Procedure Details Procedure Details: Patient was identified in the preop hold area he was consented by myself he was brought back to the label maker placed on the label maker table in a supine position after adequate induction of anesthesia antibiotics and time-out the left thigh was prepped and draped in normal surgical fashion patient has a left femoral to femoral AV fistula. Which was cannulated towards the arterial anastomosis with a 6 Scottish sheath. A fistulogram was performed which demonstrated widely patent left femoral to femoral AV graft loop graft which was without stenosis. Attention was then placed to passing wire and catheter into the aorta aortogram was performed which demonstrated widely patent aorta bilateral common iliacs and external iliac arteries. Catheter and wire were then manipulated into the external iliac artery. The right lower extremity arteriogram was performed which demonstrated a right common femoral artery which was widely patent profunda and SFA were widely patent proximally. The SFA in the mid and distal portion had a high-grade stenosis multiple in the range of 90% and an incident SFA stenosis of 90%. Popliteal artery was widely patent three-vessel runoff to the foot below. A wire was then passed down past with the SFA stenosis. 3000 units of heparin was given. A 5 x 200 mm balloon was then used to angioplasty of the SFA stenosis. The completion angiogram demonstrated no residual stenosis at this point in time wire and catheters were removed pursestring suture was placed with 4-0 Monocryl subcuticular at the level of the puncture site manual pressure was held afterwards a good thrill and bruit were noted in the left femoral AV graft. Patient was taken to recovery room stable condition. Condition Guarded Disposition Still a Patient MIKO DRAKE Jr., MD Sep 18, 2024 08:58
[2024-09-18] MEDS: HYDROcodone-ACET 10/325MG TAB PO PRN (11:18)
--- NOTE | 2024-09-18 14:27 | DVHPNRES ---
Progress Note Date Seen: Sep 18, 2024 Resident Creating Document: RUSTY LUCERO Medical Necessity Reason Pt with a Central, PICC or Fol: No Subjective Review of Systems Patient is a 54-year-old male with a past medical history of diabetes mellitus, hypertension, stroke, hyperlipidemia, ESRD, MICHAEL presented to the ED with a chief complain of 1 month of right foot 2nd digit sharp pain that started after a traumatic toe nail avulsion, that created an ulcer in 2nd digit nail bed, associated with foot swelling. The patient states he was sent to the ED by doctor for possible admission of osteomyelitis. CT scan of right foot showed Osteomyelitis of the 1st and 2nd digits involving the 1st distal phalanx, 2nd middle and distal phalanges in the distal aspect of the 2nd proximal phalanx. Soft tissue swelling and irregularity along the dorsal aspect of the 1st and 2nd digits at the level of the phalanges likely skin wounds. Chronic appearing deformity of the 5th metatarsal which may be from prior infection or trauma. 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 The patient denies fever, chills, SOB, nausea, vomit or other symptoms. 09/17/2024: Patient done with dialysis yesterday, removed 2.5 L. Patient consulted with foot doctor and decided to surgery tomorrow. Patient shows right- sided weakness. Extremity Aterial Study- Severe stenosis of the proximal right SFA. Diffuse monophasic waveforms which May also suggest aortoiliac inflow disease. Elevated velocity within the right popliteal artery consistent with hemodynamically significant stenosis. 09/18/2024: Patient underwent angioplasty. After procedure patient report difficulty breath and discomfort, sitting down the chairs he is stable to breath. Patient reports: No new complaints (RN) Objective vital signs Vital Sign Date Time Temp Pulse Resp B/P (MAP) Pulse Ox O2 Delivery O2 Flow Rate FiO2 09/18/24 10:00 75 12 119/56 (77) 97 09/18/24 09:00 98.3 98.3 09/17/24 20:00 Nasal Cannula* 2 28 Total Intake and Output 09/17/24 09/17/24 09/18/24 15:00 23:00 07:00 Intake Total 0 ml Balance 0 ml medications Current Medications Medications Dose Ordered Sig/Didier Route Start Time Stop Time Status Last Admin Dose Admin Diagnostic Test (Pha) 1 strip ACHS 09/16/24 07:00 09/18/24 11:30 1 STRIP Dextrose 50 ml UD PRN IV 09/15/24 23:15 Vancomycin HCl 0 ml @ 0 mls/hr UD IV 09/15/24 23:15 Morphine Sulfate 2 mg Q6HP PRN IV 09/16/24 00:00 09/18/24 00:32 2 MG Insulin Human Regular HS SC 09/16/24 00:00 09/17/24 22:17 2 UNITS Insulin Human Regular AC SC 09/16/24 00:00 09/17/24 17:00 2 UNITS Piperacillin Sod/ Tazobactam Sod 50 ml @ 12.5 mls/hr Q8HR IV 09/16/24 14:00 09/18/24 14:11 12.5 MLS/HR Heparin Sodium (Porcine) 5,000 units Q12HR SC 09/16/24 10:00 09/17/24 12:42 5,000 UNITS Aspirin 81 mg DAILY PO 09/17/24 10:00 09/17/24 12:09 81 MG Carvedilol 12.5 mg BID PO 09/16/24 22:00 09/17/24 21:58 12.5 MG Melatonin 5 mg HS PO 09/16/24 22:00 09/17/24 21:58 5 MG Nifedipine 30 mg DAILY PO 09/16/24 13:30 09/17/24 12:09 30 MG Acetaminophen/ Hydrocodone Bitart 1 tab QIDPRN PRN PO 09/16/24 18:00 09/18/24 11:18 1 TAB Gabapentin 300 mg TID PO 09/17/24 22:00 09/18/24 14:13 300 MG Hydralazine HCl 10 mg Q6HP PRN IV 09/17/24 18:45 09/17/24 19:06 10 MG Examination General Appearance: Cooperative. Well developed. Well nourished. NAD Head Exam: Normal inspection Neck Exam: Normal inspection. Non-tender. Normal alignment Pulmonary/Respiratory: Chest non-tender. Clear bilateral breath sounds, no crackles, no wheezing. Cardiovascular/Chest: Regular rate and rhythm. No murmurs. No JVD. Peripheral Pulses: 2+ Radial (R). 2+ Radial (L). 2+ Pedal (R). 2+ Pedal (L) Abdominal Exam: Normal bowel sounds. Soft. normal abdomen, no visible veins, Nontender. No hepatospenomegaly. No masses Ankle Exam: Negative ankle edema Lower extremities: Negative lower extremity edema Neuro/Mental Status: A&O x4. Coherent. Thoughts/Psych: Normal thought pattern. Appropriate mood and affect. Good judgement and insight Skin Exam: Normal inspection. Normal color. Warm. Dry laboratory and microbiology laboratory and microbiology Laboratory Tests 09/18/24 04:20 Test 09/18/24 04:20 Range/Units Serum Glucose 99 74-106 mg/dL Microbiology Date/Time Source Procedure Growth Status 09/15/24 23:48 Blood Blood Culture - Preliminary NO GROWTH AFTER 48 HOURS OF INCUBATION. Resulted Labs and/or images reviewed: Labs reviewed by me, Image(s) reviewed by me (RN) Problem List/Assessment/Plan Problem List/Assessment/Plan #ESRD (CKD Stage 5) -on dialysis MWF at [facility] -nephrology consult (Dr. Palma) #Diabetic foot ulcer #Osteomyelitis of the Right foot -Real- time ultrasound images of the lower extremity with grayscale, color, and spectral wave Doppler- Severe stenosis of the proximal right SFA. Diffuse monophasic waveforms which May also suggest aortoiliac inflow disease. Elevated velocity within the right popliteal artery consistent with hemodynamically significant stenosis. -Foot CT- Osteomyelitis of the 1st and 2nd digits involving the 1st distal phalanx, 2nd middle and distal phalanges in the distal aspect of the 2nd proximal phalanx. -Extremity Aterial Study- Severe stenosis of the proximal right SFA. Diffuse monophasic waveforms which May also suggest aortoiliac inflow disease. Elevated velocity within the right popliteal artery consistent with hemodynamically significant stenosis. -gabapentin -Zocyn IV -Ceftriaxone IV -podiatry consult -Surgical consult -Wound consult #DM type 2, with hyperglycemia -Insulin sliding scale -HbA1C: 5.9 H #Hypertension -Amlodipine 5mg po qd #Hyperlipidemia -Atorvastatin 40mg po qd Low Carbohydrate diet PUD prophylaxis: protonix 40mg DVT prophylaxis: Levonox 40mg Goals of care: Full code, discussed for >16 minutes on 09/18/24 Plan discussed with patient Plan discussed with Dr. Gomes Plan discussed with: Patient, Other My Orders My Orders Orders - RUSTY LUCERO Procedure Category Date Status Time Apply: BETHANY 09/17/24 In Process 11:40 Urinalysis LAB 09/17/24 Logged 23:33 Dietary Evaluation Review Comments: 1) Advance to [facility] [place] 60gm + renal standard as medically feasible 2) Adalberto 1 pk daily & Nephro-lana 1 tab daily 3) monitor PO intake, lab value, wounds status, wt trend, I/O Expected Outcomes/Goals: Wound to improve Lab values to improve Fu 2-3 days Date of Service: Sep 18, 2024 Billing Provider: ROSALIA GOMES MD Common Visit Codes: [id number] INP/OBS CARE(HIGH) RUSTY LUCERO RESIDENT Sep 18, 2024 14:27 ROSALIA GOMES MD Sep 19, 2024 20:45
--- NOTE | 2024-09-18 17:06 | DVHPN2 ---
Progress Note - Dictate Date Seen: Sep 18, 2024 Medical Necessity Reason Pt with a Central, PICC or Fol: No Subjective no acute issues overnight . Dialyzed yesterday . For probable amputation of toes in am vital signs Vital Sign Date Time Temp Pulse Resp B/P (MAP) Pulse Ox O2 Delivery O2 Flow Rate FiO2 09/18/24 13:00 97.0 81 17 132/75 (94) 98 97.0 09/17/24 20:00 Nasal Cannula* 2 28 Total Intake and Output 09/17/24 09/17/24 09/18/24 15:00 23:00 07:00 Intake Total 0 ml Balance 0 ml medications Current Medications Medications Dose Ordered Sig/Didier Route Start Time Stop Time Status Last Admin Dose Admin Diagnostic Test (Pha) 1 strip ACHS 09/16/24 07:00 09/18/24 11:30 1 STRIP Dextrose 50 ml UD PRN IV 09/15/24 23:15 Vancomycin HCl 0 ml @ 0 mls/hr UD IV 09/15/24 23:15 Morphine Sulfate 2 mg Q6HP PRN IV 09/16/24 00:00 09/18/24 00:32 2 MG Insulin Human Regular HS SC 09/16/24 00:00 09/17/24 22:17 2 UNITS Insulin Human Regular AC SC 09/16/24 00:00 09/17/24 17:00 2 UNITS Piperacillin Sod/ Tazobactam Sod 50 ml @ 12.5 mls/hr Q8HR IV 09/16/24 14:00 09/18/24 14:11 12.5 MLS/HR Heparin Sodium (Porcine) 5,000 units Q12HR SC 09/16/24 10:00 09/17/24 12:42 5,000 UNITS Aspirin 81 mg DAILY PO 09/17/24 10:00 09/17/24 12:09 81 MG Carvedilol 12.5 mg BID PO 09/16/24 22:00 09/17/24 21:58 12.5 MG Melatonin 5 mg HS PO 09/16/24 22:00 09/17/24 21:58 5 MG Nifedipine 30 mg DAILY PO 09/16/24 13:30 09/17/24 12:09 30 MG Acetaminophen/ Hydrocodone Bitart 1 tab QIDPRN PRN PO 09/16/24 18:00 09/18/24 11:18 1 TAB Gabapentin 300 mg TID PO 09/17/24 22:00 09/18/24 14:13 300 MG Hydralazine HCl 10 mg Q6HP PRN IV 09/17/24 18:45 09/17/24 19:06 10 MG objective General Appearance: Alert, Oriented X3, Cooperative, No acute distress HEENT: Atraumatic, PERRLA, Mucous membr. moist/pink Respiratory: Clear to auscultation Cardiovascular: Regular rate, Normal S1, Normal S2 Abdominal: Normal bowel sounds, Soft, No tenderness Extremities: Left BKA .Ulcer right foot Neuro: No focal deficits laboratory and microbiology Laboratory Tests 09/18/24 04:20 Test 09/18/24 04:20 Range/Units Serum Glucose 99 74-106 mg/dL Problem List ESKD on HD Osteomyelitis right foot DM II HTN Assessment/Plan HD today Continue with IV antibiotics . Dietary Evaluation Review Comments: 1) Advance to [facility] 60gm + renal standard as medically feasible 2) Adalberto 1 pk daily & Nephro-lana 1 tab daily 3) monitor PO intake, lab value, wounds status, wt trend, I/O Expected Outcomes/Goals: Wound to improve Lab values to improve Fu 2-3 days Plan discussed with: Patient LAUREN BANGURA MD Sep 18, 2024 17:06
[2024-09-19] VITALS (7 sets, daily range): BP systolic 117–142; BP diastolic 58–97; PULSE 53–83; RESP 17–20; TEMP 97.5–99; O2SAT 90–100
[2024-09-19 07:15] LABS: Hematocrit 33.5 % (41.0-53.0); Hemoglobin 11.3 g/dL (13.5-17.5); Mean Corpuscular Hemoglobin 31.7 pg (28.0-32.0); Mean Corpuscular Volume 94.3 fL (80.0-100.0); Nucleated Red Blood Cells % 0.0 %
[2024-09-19 08:28] LABS: Potassium 4.5 mmol/L (3.5-5.1); Sodium 138 mmol/L (136-145)
[2024-09-19 08:29] LABS: Anion Gap 19 (5-15); Carbon Dioxide 26 mmol/L (20-31)
[2024-09-19 08:30] LABS: Calcium 9.7 mg/dL (8.7-10.4)
[2024-09-19 08:32] LABS: Chloride 93 mmol/L (98-107)
[2024-09-19 08:34] LABS: BUN/Creatinine Ratio 5.9 (10.0-20.0); Glucose 101 mg/dL (74-106)
[2024-09-19 08:35] LABS: Blood Urea Nitrogen 52 mg/dL (9-23)
--- NOTE | 2024-09-19 09:38 | DVH ---
CHEST RADIOGRAPH Indication: crackles Technique: Single frontal view of the chest was obtained COMPARISON: XY CHEST PORTABLE on DOS: 09/17/24, R RIB XRAY on DOS: 08/24/20 FINDINGS: Lines and Tubes: None Lungs: Congestion Pleura: No effusion. No pneumothorax. Cardiomediastinal contours: Unremarkable Bones: Unremarkable IMPRESSION: Pulmonary vascular congestion, Unchanged
--- NOTE | 2024-09-19 11:53 | DVHPN2 ---
Progress Note - Dictate Date Seen: Sep 19, 2024 Medical Necessity Reason Pt with a Central, PICC or Fol: No Subjective Patient underwent angiogram of the right lower extremity yesterday. Status post angioplasty. Underwent dialysis yesterday. Treatment had to be cut short after 1 hour of treatment as patient was experiencing panic attacks. vital signs Vital Sign Date Time Temp Pulse Resp B/P (MAP) Pulse Ox O2 Delivery O2 Flow Rate FiO2 09/19/24 10:49 122/97 09/19/24 10:47 80 09/19/24 09:00 98.6 20 94 98.6 09/18/24 20:00 Nasal Cannula* 2 28 Total Intake and Output 09/18/24 09/18/24 09/19/24 15:00 23:00 07:00 Intake Total 240 ml 300 ml Balance 240 ml 300 ml medications Current Medications Medications Dose Ordered Sig/Didier Route Start Time Stop Time Status Last Admin Dose Admin Diagnostic Test (Pha) 1 strip ACHS 09/16/24 07:00 09/19/24 06:05 1 STRIP Dextrose 50 ml UD PRN IV 09/15/24 23:15 Vancomycin HCl 0 ml @ 0 mls/hr UD IV 09/15/24 23:15 Morphine Sulfate 2 mg Q6HP PRN IV 09/16/24 00:00 09/18/24 18:18 2 MG Insulin Human Regular HS SC 09/16/24 00:00 09/17/24 22:17 2 UNITS Insulin Human Regular AC SC 09/16/24 00:00 09/18/24 17:00 2 UNITS Piperacillin Sod/ Tazobactam Sod 50 ml @ 12.5 mls/hr Q8HR IV 09/16/24 14:00 09/19/24 05:49 12.5 MLS/HR Heparin Sodium (Porcine) 5,000 units Q12HR SC 09/16/24 10:00 09/19/24 10:52 5,000 UNITS Aspirin 81 mg DAILY PO 09/17/24 10:00 09/19/24 10:47 81 MG Carvedilol 12.5 mg BID PO 09/16/24 22:00 09/19/24 10:47 12.5 MG Melatonin 5 mg HS PO 09/16/24 22:00 09/18/24 21:24 5 MG Nifedipine 30 mg DAILY PO 09/16/24 13:30 09/19/24 10:49 30 MG Acetaminophen/ Hydrocodone Bitart 1 tab QIDPRN PRN PO 09/16/24 18:00 09/18/24 21:24 1 TAB Gabapentin 300 mg TID PO 09/17/24 22:00 09/19/24 05:49 300 MG Hydralazine HCl 10 mg Q6HP PRN IV 09/17/24 18:45 09/17/24 19:06 10 MG objective General Appearance: Alert, Oriented X3, Cooperative, No acute distress HEENT: Atraumatic, PERRLA, Mucous membr. moist/pink Respiratory: Diminished breath sounds at bases Cardiovascular: Regular rate, Normal S1, Normal S2 Abdominal: Normal bowel sounds, Soft, No tenderness Extremities: Left BKA .Ulcer right foot Neuro: Right-sided weakness laboratory and microbiology Laboratory Tests 09/19/24 06:11 Test 09/19/24 06:11 Range/Units Serum Glucose 101 74-106 mg/dL Problem List ESKD on HD Osteomyelitis right foot Peripheral vascular disease status post angioplasty right lower extremity DM II HTN Assessment/Plan As the patient had an incomplete treatment yesterday we will schedule patient for dialysis again tomorrow. Continue with IV antibiotics . We will follow up on Podiatry recommendations. Dietary Evaluation Review Comments: 1) Advance to [facility] 60gm + renal standard as medically feasible 2) Adalberto 1 pk daily & Nephro-lana 1 tab daily 3) monitor PO intake, lab value, wounds status, wt trend, I/O Expected Outcomes/Goals: Wound to improve Lab values to improve Fu 2-3 days Plan discussed with: Patient LAUREN BANGURA MD Sep 19, 2024 11:53
--- NOTE | 2024-09-19 14:16 | DVHSR ---
APPROVED REPORT EXAM: LIMITED Two-dimensional and M-mode echocardiogram. Blood Pressure: 117/58 mmHg INDICATION Dyspnea Orthopnea RISK FACTORS Obesity: Height: 5' 4", Weight: 223 DIMENSIONS LVDd5.1 (3.8-5.7cm)LA (2D)4.9 (1.9-4.0cm)Aortic Root3.0 (2.0-3.7cm) LVDs3.8 (2.5-4.0cm)LA (MM) (1.9-4.0cm)Aortic Cusp Exc1.6 (1.5-2.0cm) EF (%) 50.0 (55-70%)Rt. Atrium4.3 (1.9-4.0cm)Asc. Aorta cm IVSd1.1 (0.7-1.1cm)RV (D) (1.8-2.4cm) PWd1.0 (0.7-1.1cm) Mitral Valve MitralMitral Stenosis E wave1.20m/sMV Mean GR.mmHg A wave1.30m/sMV Peak GR.mmHg E/A ratio0.92D MVAcm2 Aortic Valve Aortic ValveAortic Stenosis V10.70m/Malaika Mean GR.5mmHg V21.60m/Malaika Peak GR.11mmHg LVOT Diameter2.3 (1.8-2.4cm)Doppler AVA1.82cm2 Other Information Quality : Technically LimitedRhythm : Technically limited study due to body habitus and patient position, patient is sitting up due to SOB . Conclusion MODERATELY DILATED LV LV EF IS 50% AND IS LOW NORMAL MITRAL ANNULAR CALCIFICATION GROSSLY NORMAL VALVES NO EFFUSION
--- NOTE | 2024-09-19 16:03 | DVHPNRES ---
Progress Note Date Seen: Sep 19, 2024 Resident Creating Document: BRAXTON EVANGELISTA RESIDENT Medical Necessity Reason Pt with a Central, PICC or Fol: No Subjective Review of Systems Patient is a 54-year-old male with a past medical history of diabetes mellitus, hypertension, stroke, hyperlipidemia, ESRD, MICHAEL presented to the ED with a chief complain of 1 month of right foot 2nd digit sharp pain that started after a traumatic toe nail avulsion, that created an ulcer in 2nd digit nail bed, associated with foot swelling. The patient states he was sent to the ED by doctor for possible admission of osteomyelitis. CT scan of right foot showed Osteomyelitis of the 1st and 2nd digits involving the 1st distal phalanx, 2nd middle and distal phalanges in the distal aspect of the 2nd proximal phalanx. Soft tissue swelling and irregularity along the dorsal aspect of the 1st and 2nd digits at the level of the phalanges likely skin wounds. Chronic appearing deformity of the 5th metatarsal which may be from prior infection or trauma. 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 The patient denies fever, chills, SOB, nausea, vomit or other symptoms. 09/17/2024: Patient done with dialysis yesterday, removed 2.5 L. Patient consulted with foot doctor and decided to surgery tomorrow. Patient shows right- sided weakness. Extremity Aterial Study- Severe stenosis of the proximal right SFA. Diffuse monophasic waveforms which May also suggest aortoiliac inflow disease. Elevated velocity within the right popliteal artery consistent with hemodynamically significant stenosis. 09/18/2024: Patient underwent angioplasty. After procedure patient report difficulty breath and discomfort, sitting down the chairs he is stable to breath. 09/19/2024: Patient seen and examined at bedside today, noted to have an open ulcer wound to the 2nd digit, which was present on admission, on the right lower extremity and swelling erythema tenderness to the 1st digit right lower extremity. Patient had dialysis with 1 L removed yesterday however had to be cut short due to patient feeling anxious, scheduled for repeat dialysis tomorrow. Chest x-ray today showed pulmonary vascular congestion. Patient notes improved pain, repeat consult sent to Podiatry. Detailed discussion held with patient and daughter at bedside were all questions were answered and concerns were addressed. Objective vital signs Vital Sign Date Time Temp Pulse Resp B/P (MAP) Pulse Ox O2 Delivery O2 Flow Rate FiO2 8/2/25 12:47 99.0 83 20 142/58 (86) 94 99.0 09/19/24 08:00 Nasal Cannula* 2 28 Total Intake and Output 09/18/24 09/18/24 09/19/24 15:00 23:00 07:00 Intake Total 240 ml 300 ml Balance 240 ml 300 ml medications Current Medications Medications Dose Ordered Sig/Didier Route Start Time Stop Time Status Last Admin Dose Admin Diagnostic Test (Pha) 1 strip ACHS 09/16/24 07:00 09/19/24 11:30 1 STRIP Dextrose 50 ml UD PRN IV 09/15/24 23:15 Vancomycin HCl 0 ml @ 0 mls/hr UD IV 09/15/24 23:15 Morphine Sulfate 2 mg Q6HP PRN IV 09/16/24 00:00 09/18/24 18:18 2 MG Insulin Human Regular HS SC 09/16/24 00:00 09/17/24 22:17 2 UNITS Insulin Human Regular AC SC 09/16/24 00:00 09/18/24 17:00 2 UNITS Piperacillin Sod/ Tazobactam Sod 50 ml @ 12.5 mls/hr Q8HR IV 09/16/24 14:00 09/19/24 14:03 12.5 MLS/HR Heparin Sodium (Porcine) 5,000 units Q12HR SC 09/16/24 10:00 09/19/24 10:52 5,000 UNITS Aspirin 81 mg DAILY PO 09/17/24 10:00 09/19/24 10:47 81 MG Carvedilol 12.5 mg BID PO 09/16/24 22:00 09/19/24 10:47 12.5 MG Melatonin 5 mg HS PO 09/16/24 22:00 09/18/24 21:24 5 MG Nifedipine 30 mg DAILY PO 09/16/24 13:30 09/19/24 10:49 30 MG Acetaminophen/ Hydrocodone Bitart 1 tab QIDPRN PRN PO 09/16/24 18:00 09/18/24 21:24 1 TAB Gabapentin 300 mg TID PO 09/17/24 22:00 09/19/24 14:03 300 MG Hydralazine HCl 10 mg Q6HP PRN IV 09/17/24 18:45 09/17/24 19:06 10 MG Examination General Appearance: Cooperative. Well developed. Well nourished. NAD Head Exam: Normal inspection Neck Exam: Normal inspection. Non-tender. Normal alignment Pulmonary/Respiratory: Chest non-tender. Clear bilateral breath sounds, trace crackles, no wheezing. Cardiovascular/Chest: Regular rate and rhythm. No murmurs. No JVD. Abdominal Exam: Normal bowel sounds. Soft. normal abdomen, no visible veins, Nontender. No hepatospenomegaly. No masses Lower extremities: Trace lower extremity edema, open ulcer wound to the 2nd digit on the right lower extremity and swelling erythema tenderness to the 1st digit right lower extremity Neuro/Mental Status: A&O x4. Coherent. Thoughts/Psych: Normal thought pattern. Appropriate mood and affect. Good judgement and insight Skin Exam: Normal inspection. Normal color. Warm. Dry laboratory and microbiology Laboratory Tests 09/19/24 06:11 Test 09/19/24 06:11 Range/Units Serum Glucose 101 74-106 mg/dL Microbiology Date/Time Source Procedure Growth Status 09/15/24 23:48 Blood Blood Culture - Preliminary NO GROWTH AFTER 72 HOURS OF INCUBATION. Resulted Labs and/or images reviewed: Labs reviewed by me, Image(s) reviewed by me Problem List/Assessment/Plan Problem List/Assessment/Plan #ESRD -on dialysis MWF at [facility] -nephrology consult (Dr. Palma) - dialysis yesterday on 09/18/2024 with 1 L fluid removed - scheduled for HD tomorrow # severe peripheral arterial disease, s/p angioplasty right lower extremity - right lower extremity Doppler: Severe stenosis of the proximal right SFA. Diffuse monophasic waveforms which may also suggest aortoiliac inflow disease. Elevated velocity within the right popliteal artery consistent with hemodynamically significant stenosis - vascular surgery on - patient underwent right lower extremity angioplasty on 09/18/24 #Diabetic foot ulcer #Osteomyelitis of the Right foot -Foot CT- Osteomyelitis of the 1st and 2nd digits involving the 1st distal phalanx, 2nd middle and distal phalanges in the distal aspect of the 2nd proximal phalanx. -Extremity Aterial Study- Severe stenosis of the proximal right SFA. Diffuse monophasic waveforms which May also suggest aortoiliac inflow disease. Elevated velocity within the right popliteal artery consistent with hemodynamically significant stenosis. 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 daily - carvedilol 12.5 mg p.o. b.i.d. #Hyperlipidemia -Atorvastatin 40mg po qd Low Carbohydrate diet PUD prophylaxis: protonix 40mg DVT prophylaxis: Heparin 5000 units b.i.d. Goals of care: Full code, discussed for >16 minutes on 09/17/24 Plan discussed with patient Plan discussed with Dr. Gomes Plan discussed with: Patient, Daughter, Other (RN) My Orders My Orders Orders - BRAXTON EVANGELISTA RESIDENT Procedure Category Date Status Time Echo 2d Mode Cardiac US 09/19/24 Resulted DOP 08:48 Chest Portable XY 09/19/24 Resulted 08:54 Dietary Evaluation Review Comments: 1) Advance to [facility] 60gm + renal standard as medically feasible 2) Adalberto 1 pk daily & Nephro-lana 1 tab daily 3) monitor PO intake, lab value, wounds status, wt trend, I/O Expected Outcomes/Goals: Wound to improve Lab values to improve Fu 2-3 days Date of Service: Sep 19, 2024 Billing Provider: ROSALIA GOMES MD Common Visit Codes: [id number] INP/OBS CARE(HIGH) BRAXTON EVANGELISTA Sep 19, 2024 16:03 ROSALIA GOMES MD Sep 19, 2024 20:46
[2024-09-20] VITALS (7 sets, daily range): BP systolic 110–143; BP diastolic 60–81; PULSE 56–88; RESP 16–20; TEMP 98.2–98.6; O2SAT 95–100
[2024-09-20 07:48] LABS: Hematocrit 34.3 % (41.0-53.0); Hemoglobin 11.5 g/dL (13.5-17.5); Mean Corpuscular Hemoglobin 31.7 pg (28.0-32.0); Mean Corpuscular Volume 94.6 fL (80.0-100.0); Nucleated Red Blood Cells % 0.2 %
[2024-09-20 07:55] LABS: Anion Gap 20 (5-15); Carbon Dioxide 26 mmol/L (20-31); Potassium 5.0 mmol/L (3.5-5.1)
[2024-09-20 07:56] LABS: Calcium 9.5 mg/dL (8.7-10.4)
[2024-09-20 08:01] LABS: BUN/Creatinine Ratio 6.2 (10.0-20.0); Glucose 85 mg/dL (74-106)
[2024-09-20] MEDS: SODIUM CHL 0.9% 1000 ML BAG XX ONE (08:01)
[2024-09-20 08:11] LABS: Blood Urea Nitrogen 64 mg/dL (9-23); Chloride 90 mmol/L (98-107); Sodium 136 mmol/L (136-145)
[2024-09-20] MEDS: ATORVASTATIN 20 MG TAB PO ONE (12:14)
[2024-09-20] MEDS: VANCOMYCIN 1GM/200ML PM 200 ML IV ONE (13:44)
--- NOTE | 2024-09-20 14:52 | DVHPNRES ---
Progress Note Date Seen: Sep 20, 2024 Resident Creating Document: RUSTY LUCERO Medical Necessity Reason Pt with a Central, PICC or Fol: No Subjective Review of Systems Patient is a 54-year-old male with a past medical history of diabetes mellitus, hypertension, stroke, hyperlipidemia, ESRD, MICHAEL presented to the ED with a chief complain of 1 month of right foot 2nd digit sharp pain that started after a traumatic toe nail avulsion, that created an ulcer in 2nd digit nail bed, associated with foot swelling. The patient states he was sent to the ED by doctor for possible admission of osteomyelitis. CT scan of right foot showed Osteomyelitis of the 1st and 2nd digits involving the 1st distal phalanx, 2nd middle and distal phalanges in the distal aspect of the 2nd proximal phalanx. Soft tissue swelling and irregularity along the dorsal aspect of the 1st and 2nd digits at the level of the phalanges likely skin wounds. Chronic appearing deformity of the 5th metatarsal which may be from prior infection or trauma. 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 The patient denies fever, chills, SOB, nausea, vomit or other symptoms. 09/17/2024: Patient done with dialysis yesterday, removed 2.5 L. Patient consulted with foot doctor and decided to surgery tomorrow. Patient shows right- sided weakness. Extremity Aterial Study- Severe stenosis of the proximal right SFA. Diffuse monophasic waveforms which May also suggest aortoiliac inflow disease. Elevated velocity within the right popliteal artery consistent with hemodynamically significant stenosis. 09/18/2024: Patient underwent angioplasty. After procedure patient report difficulty breath and discomfort, sitting down the chairs he is stable to breath. 09/19/2024: Patient seen and examined at bedside today, noted to have an open ulcer wound to the 2nd digit, which was present on admission, on the right lower extremity and swelling erythema tenderness to the 1st digit right lower extremity. Patient had dialysis with 1 L removed yesterday however had to be cut short due to patient feeling anxious, scheduled for repeat dialysis tomorrow. Chest x-ray today showed pulmonary vascular congestion. Patient notes improved pain, repeat consult sent to Podiatry. Detailed discussion held with patient and daughter at bedside were all questions were answered and concerns were addressed. 09/20/2024: Patient seen and examined at bedside today, complains with hip pain and discomfort. Patient underwent dialysis today with ultrafiltration of 3 L. Patient will begin NPO after midnight in preparation for a procedure scheduled tomorrow. Objective vital signs Vital Sign Date Time Temp Pulse Resp B/P (MAP) Pulse Ox O2 Delivery O2 Flow Rate FiO2 09/20/24 12:14 128/67 09/20/24 12:13 70 09/20/24 05:00 98.2 20 97 98.2 09/19/24 20:00 Nasal Cannula* 2 28 Total Intake and Output 09/19/24 09/19/24 09/20/24 15:00 23:00 07:00 Intake Total 410 ml 450 ml Output Total 200 ml Balance 410 ml 250 ml medications Current Medications Medications Dose Ordered Sig/Didier Route Start Time Stop Time Status Last Admin Dose Admin Diagnostic Test (Pha) 1 strip ACHS 09/16/24 07:00 09/20/24 11:50 1 STRIP Dextrose 50 ml UD PRN IV 09/15/24 23:15 Vancomycin HCl 0 ml @ 0 mls/hr UD IV 09/15/24 23:15 Insulin Human Regular HS SC 09/16/24 00:00 09/17/24 22:17 2 UNITS Insulin Human Regular AC SC 09/16/24 00:00 09/19/24 17:00 2 UNITS Piperacillin Sod/ Tazobactam Sod 50 ml @ 12.5 mls/hr Q8HR IV 09/16/24 14:00 09/20/24 05:53 12.5 MLS/HR Heparin Sodium (Porcine) 5,000 units Q12HR SC 09/16/24 10:00 09/19/24 21:26 5,000 UNITS Aspirin 81 mg DAILY PO 09/17/24 10:00 09/20/24 12:14 81 MG Carvedilol 12.5 mg BID PO 09/16/24 22:00 09/20/24 12:13 12.5 MG Melatonin 5 mg HS PO 09/16/24 22:00 09/19/24 21:27 5 MG Nifedipine 30 mg DAILY PO 09/16/24 13:30 09/20/24 12:14 30 MG Acetaminophen/ Hydrocodone Bitart 1 tab QIDPRN PRN PO 09/16/24 18:00 09/20/24 14:28 1 TAB Gabapentin 300 mg TID PO 09/17/24 22:00 09/20/24 13:44 300 MG Hydralazine HCl 10 mg Q6HP PRN IV 09/17/24 18:45 09/17/24 19:06 10 MG Morphine Sulfate 1 mg Q6HP PRN IV 09/19/24 18:00 Atorvastatin Calcium 40 mg HS PO 09/20/24 22:00 Examination General Appearance: Cooperative. Well developed. Well nourished. NAD Head Exam: Normal inspection Neck Exam: Normal inspection. Non-tender. Normal alignment Pulmonary/Respiratory: Chest non-tender. Clear bilateral breath sounds, trace crackles, no wheezing. Cardiovascular/Chest: Regular rate and rhythm. No murmurs. No JVD. Abdominal Exam: Normal bowel sounds. Soft. normal abdomen, no visible veins, Nontender. No hepatospenomegaly. No masses Lower extremities: Trace lower extremity edema, open ulcer wound to the 2nd digit on the right lower extremity and swelling erythema tenderness to the 1st digit right lower extremity Neuro/Mental Status: A&O x4. Coherent. Thoughts/Psych: Normal thought pattern. Appropriate mood and affect. Good judgement and insight Skin Exam: Normal inspection. Normal color. Warm. Dry laboratory and microbiology Laboratory Tests 09/20/24 06:28 Test 09/20/24 06:28 Range/Units Serum Glucose 85 74-106 mg/dL Microbiology Date/Time Source Procedure Growth Status 09/15/24 23:48 Blood Blood Culture - Preliminary NO GROWTH AFTER 72 HOURS OF INCUBATION. Resulted Labs and/or images reviewed: Labs reviewed by me, Image(s) reviewed by me Problem List/Assessment/Plan Problem List/Assessment/Plan #ESRD -on dialysis MWF at [facility] -nephrology consult (Dr. Palma) - dialysis yesterday on 09/18/2024 with 1 L fluid removed - dialysis today on 09/20/2024 with ultrafiltration of 3 L # severe peripheral arterial disease, s/p angioplasty right lower extremity - right lower extremity Doppler: Severe stenosis of the proximal right SFA. Diffuse monophasic waveforms which may also suggest aortoiliac inflow disease. Elevated velocity within the right popliteal artery consistent with hemodynamically significant stenosis - vascular surgery on board - patient underwent right lower extremity angioplasty on 09/18/24 #Diabetic foot ulcer #Osteomyelitis of the Right foot -Foot CT- Osteomyelitis of the 1st and 2nd digits involving the 1st distal phalanx, 2nd middle and distal phalanges in the distal aspect of the 2nd proximal phalanx. -Extremity Aterial Study- Severe stenosis of the proximal right SFA. Diffuse monophasic waveforms which May also suggest aortoiliac inflow disease. Elevated velocity within the right popliteal artery consistent with hemodynamically significant stenosis. -gabapentin - Zosyn IV - IV vancomycin per pharmacy -podiatry consult; possible surgery on Saturday -Wound consult - [place] 10 for moderate pain, morphine 1 mg for severe pain #DM type 2, with hyperglycemia # peripheral neuropathy due to above -Insulin sliding scale -HbA1C: 5.9 H - resumed home medication gabapentin #Hypertension -nifedipine 30 mg p.o. daily - carvedilol 12.5 mg p.o. b.i.d. #Hyperlipidemia -Atorvastatin 40mg po qd Low Carbohydrate diet PUD prophylaxis: protonix 40mg DVT prophylaxis: Heparin 5000 units b.i.d. Goals of care: Full code, discussed for >16 minutes on 09/20/24 Plan discussed with patient Plan discussed with Dr. Gomes Plan discussed with: Patient, Daughter (RN) My Orders My Orders Orders - RUSTY LUCERO Procedure Category Date Status Time Npo (Nothing By DIET 09/21/24 Transmitted Mouth) Diet Breakfast Complete Blood Count LAB 09/21/24 Verified 04:00 Basic Metabolic Panel LAB 09/21/24 Verified 04:00 Dietary Evaluation Review Comments: 1) Advance to [facility] 60gm + renal standard as medically feasible 2) Adalberto 1 pk daily & Nephro-lana 1 tab daily 3) monitor PO intake, lab value, wounds status, wt trend, I/O Expected Outcomes/Goals: Wound to improve Lab values to improve Fu 2-3 days Date of Service: Sep 20, 2024 Billing Provider: ROSALIA GOMES MD Common Visit Codes: [id number] INP/OBS CARE(HIGH) RUSTY LUCERO Sep 20, 2024 14:52 ROSALIA GOMES MD Sep 20, 2024 21:43
--- NOTE | 2024-09-20 16:54 | DVHPN2 ---
Progress Note - Dictate Date Seen: Sep 20, 2024 Medical Necessity Reason Pt with a Central, PICC or Fol: No Subjective Patient underwent dialysis today with ultrafiltration of 3 L. vital signs Vital Sign Date Time Temp Pulse Resp B/P (MAP) Pulse Ox O2 Delivery O2 Flow Rate FiO2 09/20/24 12:14 128/67 09/20/24 12:13 70 09/20/24 05:00 98.2 20 97 98.2 09/19/24 20:00 Nasal Cannula* 2 28 Total Intake and Output 09/19/24 09/19/24 09/20/24 15:00 23:00 07:00 Intake Total 410 ml 450 ml Output Total 200 ml Balance 410 ml 250 ml medications Current Medications Medications Dose Ordered Sig/Didier Route Start Time Stop Time Status Last Admin Dose Admin Diagnostic Test (Pha) 1 strip ACHS 09/16/24 07:00 09/20/24 11:50 1 STRIP Dextrose 50 ml UD PRN IV 09/15/24 23:15 Vancomycin HCl 0 ml @ 0 mls/hr UD IV 09/15/24 23:15 Insulin Human Regular HS SC 09/16/24 00:00 09/17/24 22:17 2 UNITS Insulin Human Regular AC SC 09/16/24 00:00 09/19/24 17:00 2 UNITS Piperacillin Sod/ Tazobactam Sod 50 ml @ 12.5 mls/hr Q8HR IV 09/16/24 14:00 09/20/24 05:53 12.5 MLS/HR Heparin Sodium (Porcine) 5,000 units Q12HR SC 09/16/24 10:00 09/19/24 21:26 5,000 UNITS Aspirin 81 mg DAILY PO 09/17/24 10:00 09/20/24 12:14 81 MG Carvedilol 12.5 mg BID PO 09/16/24 22:00 09/20/24 12:13 12.5 MG Melatonin 5 mg HS PO 09/16/24 22:00 09/19/24 21:27 5 MG Nifedipine 30 mg DAILY PO 09/16/24 13:30 09/20/24 12:14 30 MG Acetaminophen/ Hydrocodone Bitart 1 tab QIDPRN PRN PO 09/16/24 18:00 09/20/24 14:28 1 TAB Gabapentin 300 mg TID PO 09/17/24 22:00 09/20/24 13:44 300 MG Hydralazine HCl 10 mg Q6HP PRN IV 09/17/24 18:45 09/17/24 19:06 10 MG Morphine Sulfate 1 mg Q6HP PRN IV 09/19/24 18:00 Atorvastatin Calcium 40 mg HS PO 09/20/24 22:00 objective General Appearance: No acute distress HEENT: Atraumatic, PERRLA, Mucous membr. moist/pink Respiratory: Diminished breath sounds at bases Cardiovascular: Regular rate, Normal S1, Normal S2 Abdominal: Normal bowel sounds, Soft, No tenderness Extremities: Left BKA .Ulcer right foot Neuro: Right-sided weakness laboratory and microbiology Laboratory Tests 09/20/24 06:28 Test 09/20/24 06:28 Range/Units Serum Glucose 85 74-106 mg/dL Problem List ESKD on HD Osteomyelitis right foot Peripheral vascular disease status post angioplasty right lower extremity DM II HTN Assessment/Plan Patient underwent dialysis today. We will continue with the his outpatient schedule of Saturday. Surgery as per Podiatry. Dietary Evaluation Review Comments: 1) Advance to [facility] 60gm + renal standard as medically feasible 2) Adalberto 1 pk daily & Nephro-lana 1 tab daily 3) monitor PO intake, lab value, wounds status, wt trend, I/O Expected Outcomes/Goals: Wound to improve Lab values to improve Fu 2-3 days Plan discussed with: Patient LAUREN BANGURA MD Sep 20, 2024 16:54
[2024-09-20] MEDS: ACETAMINOPHEN 325 MG TAB PO PRN (17:28)
[2024-09-20] MEDS ORDERED: EPOETIN ALFA-EPBX 4,000 UNIT/ML VIAL SC ONE (21:00)
[2024-09-20] MEDS: ATORVASTATIN 20 MG TAB PO SCH (21:11)
[2024-09-20] MEDS: MORPHINE SULFATE INJ 2 MG/ml SYRG IV PRN (22:37)
[2024-09-21] VITALS (9 sets, daily range): BP systolic 93–144; BP diastolic 53–83; PULSE 60–89; RESP 17–20; TEMP 97.5–98.5; O2SAT 92–98
[2024-09-21] MEDS: SODIUM CHL 0.9% 1000 ML BAG XX ONE (07:00)
[2024-09-21 07:24] LABS: Hematocrit 32.7 % (41.0-53.0); Hemoglobin 11.1 g/dL (13.5-17.5); Mean Corpuscular Hemoglobin 32.0 pg (28.0-32.0); Mean Corpuscular Volume 94.1 fL (80.0-100.0); Nucleated Red Blood Cells % 0.0 %
[2024-09-21 07:39] LABS: Calcium 9.2 mg/dL (8.7-10.4); Potassium 4.2 mmol/L (3.5-5.1)
[2024-09-21 07:40] LABS: Anion Gap 18 (5-15); Carbon Dioxide 28 mmol/L (20-31)
[2024-09-21 07:41] LABS: Chloride 89 mmol/L (98-107); Sodium 135 mmol/L (136-145)
[2024-09-21 07:45] LABS: BUN/Creatinine Ratio 5.9 (10.0-20.0); Glucose 85 mg/dL (74-106)
[2024-09-21 07:46] LABS: Blood Urea Nitrogen 46 mg/dL (9-23)
[2024-09-21] MEDS: POLYETHYLENE GLYCOL 17 GM PWDR PO SCH (10:00)
[2024-09-21] MEDS: DOCUSATE SOD 100 MG CAP PO SCH (11:13)
[2024-09-21 11:15] LABS: Hepatitis B Surface Antigen Negative (Negative)
--- NOTE | 2024-09-21 14:08 | DVHPNRES ---
Progress Note Date Seen: Sep 21, 2024 Resident Creating Document: RUSTY LUCERO Medical Necessity Reason Pt with a Central, PICC or Fol: No Subjective Review of Systems Patient is a 54-year-old male with a past medical history of diabetes mellitus, hypertension, stroke, hyperlipidemia, ESRD, MICHAEL presented to the ED with a chief complain of 1 month of right foot 2nd digit sharp pain that started after a traumatic toe nail avulsion, that created an ulcer in 2nd digit nail bed, associated with foot swelling. The patient states he was sent to the ED by doctor for possible admission of osteomyelitis. CT scan of right foot showed Osteomyelitis of the 1st and 2nd digits involving the 1st distal phalanx, 2nd middle and distal phalanges in the distal aspect of the 2nd proximal phalanx. Soft tissue swelling and irregularity along the dorsal aspect of the 1st and 2nd digits at the level of the phalanges likely skin wounds. Chronic appearing deformity of the 5th metatarsal which may be from prior infection or trauma. 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 The patient denies fever, chills, SOB, nausea, vomit or other symptoms. 09/17/2024: Patient done with dialysis yesterday, removed 2.5 L. Patient consulted with foot doctor and decided to surgery tomorrow. Patient shows right- sided weakness. Extremity Aterial Study- Severe stenosis of the proximal right SFA. Diffuse monophasic waveforms which May also suggest aortoiliac inflow disease. Elevated velocity within the right popliteal artery consistent with hemodynamically significant stenosis. 09/18/2024: Patient underwent angioplasty. After procedure patient report difficulty breath and discomfort, sitting down the chairs he is stable to breath. 09/19/2024: Patient seen and examined at bedside today, noted to have an open ulcer wound to the 2nd digit, which was present on admission, on the right lower extremity and swelling erythema tenderness to the 1st digit right lower extremity. Patient had dialysis with 1 L removed yesterday however had to be cut short due to patient feeling anxious, scheduled for repeat dialysis tomorrow. Chest x-ray today showed pulmonary vascular congestion. Patient notes improved pain, repeat consult sent to Podiatry. Detailed discussion held with patient and daughter at bedside were all questions were answered and concerns were addressed. 09/20/2024: Patient seen and examined at bedside today, complains with hip pain and discomfort. Patient underwent dialysis today with ultrafiltration of 3 L. Patient will begin NPO after midnight in preparation for a procedure scheduled tomorrow. 09/21/2024: Patient seen and examined at bedside today, complains with right leg and hip pain. Patient was seen by podiatry and scheduled for surgery on Saturday morning. Patient planed to receive dialysis on Saturday afternoon. Patient had dialysis with 3 L removed today. Objective vital signs Vital Sign Date Time Temp Pulse Resp B/P (MAP) Pulse Ox O2 Delivery O2 Flow Rate FiO2 09/21/24 09:00 97.5 69 20 106/65 (79) 92 97.5 09/21/24 08:00 Nasal Cannula* 2 28 Total Intake and Output 09/20/24 09/20/24 09/21/24 15:00 23:00 07:00 Intake Total 25 ml 400 ml 50 ml Output Total 0 ml 230 ml Balance 25 ml 400 ml -180 ml medications Current Medications Medications Dose Ordered Sig/Didier Route Start Time Stop Time Status Last Admin Dose Admin Diagnostic Test (Pha) 1 strip ACHS 09/16/24 07:00 09/21/24 11:19 1 STRIP Dextrose 50 ml UD PRN IV 09/15/24 23:15 Vancomycin HCl 0 ml @ 0 mls/hr UD IV 09/15/24 23:15 Insulin Human Regular HS SC 09/16/24 00:00 09/17/24 22:17 2 UNITS Insulin Human Regular AC SC 09/16/24 00:00 09/19/24 17:00 2 UNITS Piperacillin Sod/ Tazobactam Sod 50 ml @ 12.5 mls/hr Q8HR IV 09/16/24 14:00 09/21/24 05:27 12.5 MLS/HR Heparin Sodium (Porcine) 5,000 units Q12HR SC 09/16/24 10:00 09/21/24 11:19 5,000 UNITS Aspirin 81 mg DAILY PO 09/17/24 10:00 09/21/24 11:13 81 MG Carvedilol 12.5 mg BID PO 09/16/24 22:00 09/20/24 12:13 12.5 MG Melatonin 5 mg HS PO 09/16/24 22:00 09/20/24 22:36 5 MG Nifedipine 30 mg DAILY PO 09/16/24 13:30 09/20/24 12:14 30 MG Acetaminophen/ Hydrocodone Bitart 1 tab QIDPRN PRN PO 09/16/24 18:00 09/21/24 05:28 1 TAB Gabapentin 300 mg TID PO 09/17/24 22:00 09/21/24 05:28 300 MG Hydralazine HCl 10 mg Q6HP PRN IV 09/17/24 18:45 09/17/24 19:06 10 MG Morphine Sulfate 1 mg Q6HP PRN IV 09/19/24 18:00 09/20/24 22:37 1 MG Atorvastatin Calcium 40 mg HS PO 09/20/24 22:00 09/20/24 21:11 40 MG Acetaminophen 650 mg Q6HP PRN PO 09/20/24 17:15 09/20/24 17:28 650 MG Polyethylene Glycol 17 gm DAILY PO 09/21/24 10:00 Docusate Sodium 100 mg BID PO 09/21/24 10:00 09/21/24 11:13 100 MG Examination General Appearance: Cooperative. Well developed. Well nourished. NAD Head Exam: Normal inspection Neck Exam: Normal inspection. Non-tender. Normal alignment Pulmonary/Respiratory: Chest non-tender. Clear bilateral breath sounds, trace crackles, no wheezing. Cardiovascular/Chest: Regular rate and rhythm. No murmurs. No JVD. Abdominal Exam: Normal bowel sounds. Soft. normal abdomen, no visible veins, Nontender. No hepatospenomegaly. No masses Lower extremities: Trace lower extremity edema, open ulcer wound to the 2nd digit on the right lower extremity and swelling erythema tenderness to the 1st digit right lower extremity Neuro/Mental Status: A&O x4. Coherent. Thoughts/Psych: Normal thought pattern. Appropriate mood and affect. Good judgement and insight Skin Exam: Normal inspection. Normal color. Warm. Dry laboratory and microbiology Laboratory Tests 09/21/24 06:16 Test 09/21/24 06:16 Range/Units Serum Glucose 85 74-106 mg/dL Microbiology Date/Time Source Procedure Growth Status 09/15/24 23:48 Blood Blood Culture - Final NO GROWTH AFTER 5 DAYS OF INCUBATION. Complete Labs and/or images reviewed: Labs reviewed by me, Image(s) reviewed by me Problem List/Assessment/Plan Problem List/Assessment/Plan #ESRD -on dialysis MWF at [facility] -nephrology consult (Dr. Palma) - dialysis yesterday on 09/18/2024 with 1 L fluid removed - dialysis on 09/20/2024 with ultrafiltration of 3 L - dialysis today on 09/21/2024 with ultrafiltration of 3 L # severe peripheral arterial disease, s/p angioplasty right lower extremity - right lower extremity Doppler: Severe stenosis of the proximal right SFA. Diffuse monophasic waveforms which may also suggest aortoiliac inflow disease. Elevated velocity within the right popliteal artery consistent with hemodynamically significant stenosis - vascular surgery on board - patient underwent right lower extremity angioplasty on 09/18/24 #Diabetic foot ulcer #Osteomyelitis of the Right foot -Foot CT- Osteomyelitis of the 1st and 2nd digits involving the 1st distal phalanx, 2nd middle and distal phalanges in the distal aspect of the 2nd proximal phalanx. -Extremity Aterial Study- Severe stenosis of the proximal right SFA. Diffuse monophasic waveforms which May also suggest aortoiliac inflow disease. Elevated velocity within the right popliteal artery consistent with hemodynamically significant stenosis. -gabapentin - Zosyn IV - IV vancomycin per pharmacy -Wound consult - [place] 10 for moderate pain, morphine 1 mg for severe pain - Podiatry consult: surgery on Saturday (09/23/24) #DM type 2, with hyperglycemia # peripheral neuropathy due to above -Insulin sliding scale -HbA1C: 5.9 H - resumed home medication gabapentin #Hypertension -nifedipine 30 mg p.o. daily - carvedilol 12.5 mg p.o. b.i.d. #Hyperlipidemia -Atorvastatin 40mg po qd Low Carbohydrate diet PUD prophylaxis: protonix 40mg DVT prophylaxis: Heparin 5000 units b.i.d. Goals of care: Full code, discussed for >16 minutes on 09/21/24 Plan discussed with patient Plan discussed with Dr. Gomes Plan discussed with: Patient, Other (RN) My Orders My Orders Orders - RUSTY LUCERO Procedure Category Date Status Time Polyethylene Glycol PHA 09/21/24 In Process 17g Powder (Miralax 10:00 Docusate Sodium PHA 09/21/24 In Process Capsule (Colace 10:00 Consistent DIET 09/21/24 Transmitted Carb(Ccho)Diabetes Lunch Dietary Evaluation Review Comments: 1) Advance to [facility] 60gm + renal standard as medically feasible 2) Adalberto 1 pk daily & Nephro-lana 1 tab daily 3) monitor PO intake, lab value, wounds status, wt trend, I/O Expected Outcomes/Goals: Wound to improve Lab values to improve Fu 2-3 days Date of Service: Sep 21, 2024 Billing Provider: ROSALIA GOMES MD Common Visit Codes: [id number] INP/OBS CARE(HIGH) JAZMINEPRONICKO RESIDENT Sep 21, 2024 14:08 ROSALIA GOMES MD Sep 27, 2024 20:41
--- NOTE | 2024-09-21 14:31 | DVHPN2 ---
Progress Note - Dictate Date Seen: Sep 21, 2024 Medical Necessity Reason Pt with a Central, PICC or Fol: No Subjective Mild shortness of breath reported vital signs Vital Sign Date Time Temp Pulse Resp B/P (MAP) Pulse Ox O2 Delivery O2 Flow Rate FiO2 09/21/24 13:00 97.7 73 19 124/63 (83) 96 97.7 09/21/24 08:00 Nasal Cannula* 2 28 Total Intake and Output 09/20/24 09/20/24 09/21/24 15:00 23:00 07:00 Intake Total 25 ml 400 ml 50 ml Output Total 0 ml 230 ml Balance 25 ml 400 ml -180 ml medications Current Medications Medications Dose Ordered Sig/Didier Route Start Time Stop Time Status Last Admin Dose Admin Diagnostic Test (Pha) 1 strip ACHS 09/16/24 07:00 09/21/24 11:19 1 STRIP Dextrose 50 ml UD PRN IV 09/15/24 23:15 Vancomycin HCl 0 ml @ 0 mls/hr UD IV 09/15/24 23:15 Insulin Human Regular HS SC 09/16/24 00:00 09/17/24 22:17 2 UNITS Insulin Human Regular AC SC 09/16/24 00:00 09/19/24 17:00 2 UNITS Piperacillin Sod/ Tazobactam Sod 50 ml @ 12.5 mls/hr Q8HR IV 09/16/24 14:00 09/21/24 14:06 12.5 MLS/HR Heparin Sodium (Porcine) 5,000 units Q12HR SC 09/16/24 10:00 09/21/24 11:19 5,000 UNITS Aspirin 81 mg DAILY PO 09/17/24 10:00 09/21/24 11:13 81 MG Carvedilol 12.5 mg BID PO 09/16/24 22:00 09/20/24 12:13 12.5 MG Melatonin 5 mg HS PO 09/16/24 22:00 09/20/24 22:36 5 MG Nifedipine 30 mg DAILY PO 09/16/24 13:30 09/20/24 12:14 30 MG Acetaminophen/ Hydrocodone Bitart 1 tab QIDPRN PRN PO 09/16/24 18:00 09/21/24 05:28 1 TAB Gabapentin 300 mg TID PO 09/17/24 22:00 09/21/24 14:06 300 MG Hydralazine HCl 10 mg Q6HP PRN IV 09/17/24 18:45 09/17/24 19:06 10 MG Morphine Sulfate 1 mg Q6HP PRN IV 09/19/24 18:00 09/20/24 22:37 1 MG Atorvastatin Calcium 40 mg HS PO 09/20/24 22:00 09/20/24 21:11 40 MG Acetaminophen 650 mg Q6HP PRN PO 09/20/24 17:15 09/20/24 17:28 650 MG Polyethylene Glycol 17 gm DAILY PO 09/21/24 10:00 Docusate Sodium 100 mg BID PO 09/21/24 10:00 09/21/24 11:13 100 MG objective HEENT: No evidence of JVD, no oral ulcers. Pulmonary: Right lung crackles on auscultation bilaterally Cardiovascular S1-S2, no S3 or S4 Abdomen: Bowel sounds positive, soft no rebound tenderness Skin: No rash Neurological: Alert, oriented, no focal weakness Extremities: Left BKA, right leg trace edema laboratory and microbiology Laboratory Tests 09/21/24 06:16 Test 09/21/24 06:16 Range/Units Serum Glucose 85 74-106 mg/dL Assessment/Plan Assessment: ESKD on HD Osteomyelitis right foot Peripheral vascular disease status post angioplasty right lower extremity DM II HTN Plan and recommendations Hemodialysis today for 2-3 L We will continue with the his outpatient schedule of Saturday. Surgery as per Podiatry. Going to the OR on Saturday and dialysis afterwards Fluid restriction, continue binders, continue antihypertensive meds Plan of care discussed with the patient and resident Dietary Evaluation Review Comments: 1) Advance to [facility] 60gm + renal standard as medically feasible 2) Adalberto 1 pk daily & Nephro-lana 1 tab daily 3) monitor PO intake, lab value, wounds status, wt trend, I/O Expected Outcomes/Goals: Wound to improve Lab values to improve Fu 2-3 days Plan discussed with: Patient MOE TURNER MD Sep 21, 2024 14:31
[2024-09-22 01:00] VITALS: BP 111/61; PULSE 74; RESP 18; TEMP 98; O2SAT 98
[2024-09-22 05:00] VITALS: BP 130/70; PULSE 73; RESP 18; TEMP 97.9; O2SAT 97
[2024-09-22 09:00] VITALS: BP 132/69; PULSE 68; RESP 17; O2SAT 100
[2024-09-22 10:45] LABS: Hematocrit 32.3 % (41.0-53.0); Hemoglobin 10.7 g/dL (13.5-17.5); Mean Corpuscular Hemoglobin 31.2 pg (28.0-32.0); Mean Corpuscular Volume 94.2 fL (80.0-100.0)
[2024-09-22 10:52] LABS: Anion Gap 14 (5-15); Carbon Dioxide 30 mmol/L (20-31); Potassium 4.1 mmol/L (3.5-5.1)
[2024-09-22 10:54] LABS: Calcium 9.6 mg/dL (8.7-10.4)
[2024-09-22 10:58] LABS: BUN/Creatinine Ratio 5.1 (10.0-20.0); Glucose 82 mg/dL (74-106)
[2024-09-22 10:59] LABS: Blood Urea Nitrogen 35 mg/dL (9-23); Chloride 91 mmol/L (98-107); Sodium 135 mmol/L (136-145)
[2024-09-22 12:56] LABS: Total Cells Counted 100.0 (100)
--- NOTE | 2024-09-22 16:04 | DVHPNRES ---
Progress Note Date Seen: Sep 22, 2024 Resident Creating Document: RUSTY LUCERO Medical Necessity Reason Pt with a Central, PICC or Fol: No Subjective Review of Systems Patient is a 54-year-old male with a past medical history of diabetes mellitus, hypertension, stroke, hyperlipidemia, ESRD, MICHAEL presented to the ED with a chief complain of 1 month of right foot 2nd digit sharp pain that started after a traumatic toe nail avulsion, that created an ulcer in 2nd digit nail bed, associated with foot swelling. The patient states he was sent to the ED by doctor for possible admission of osteomyelitis. CT scan of right foot showed Osteomyelitis of the 1st and 2nd digits involving the 1st distal phalanx, 2nd middle and distal phalanges in the distal aspect of the 2nd proximal phalanx. Soft tissue swelling and irregularity along the dorsal aspect of the 1st and 2nd digits at the level of the phalanges likely skin wounds. Chronic appearing deformity of the 5th metatarsal which may be from prior infection or trauma. 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 The patient denies fever, chills, SOB, nausea, vomit or other symptoms. 09/17/2024: Patient done with dialysis yesterday, removed 2.5 L. Patient consulted with foot doctor and decided to surgery tomorrow. Patient shows right- sided weakness. Extremity Aterial Study- Severe stenosis of the proximal right SFA. Diffuse monophasic waveforms which May also suggest aortoiliac inflow disease. Elevated velocity within the right popliteal artery consistent with hemodynamically significant stenosis. 09/18/2024: Patient underwent angioplasty. After procedure patient report difficulty breath and discomfort, sitting down the chairs he is stable to breath. 09/19/2024: Patient seen and examined at bedside today, noted to have an open ulcer wound to the 2nd digit, which was present on admission, on the right lower extremity and swelling erythema tenderness to the 1st digit right lower extremity. Patient had dialysis with 1 L removed yesterday however had to be cut short due to patient feeling anxious, scheduled for repeat dialysis tomorrow. Chest x-ray today showed pulmonary vascular congestion. Patient notes improved pain, repeat consult sent to Podiatry. Detailed discussion held with patient and daughter at bedside were all questions were answered and concerns were addressed. 09/20/2024: Patient seen and examined at bedside today, complains with hip pain and discomfort. Patient underwent dialysis today with ultrafiltration of 3 L. Patient will begin NPO after midnight in preparation for a procedure scheduled tomorrow. 09/21/2024: Patient seen and examined at bedside today, complains with right leg and hip pain. Patient was seen by podiatry and scheduled for surgery on Saturday morning. Patient planed to receive dialysis on Saturday afternoon. Patient had dialysis with 3 L removed today. 09/22/2024: Patient seen and examined at bedside today. On evaluation today, he states he is well, pain is manageable. His vitals have remained stable. Patient will begin NPO after midnight in preparation for a procedure scheduled tomorrow. Objective vital signs Vital Sign Date Time Temp Pulse Resp B/P (MAP) Pulse Ox O2 Delivery O2 Flow Rate FiO2 09/22/24 16:01 74 132/74 09/22/24 09:00 17 100 09/22/24 08:08 Nasal Cannula* 3 32 09/22/24 05:00 97.9 97.9 Total Intake and Output 09/21/24 09/21/24 09/22/24 15:00 23:00 07:00 Intake Total 800 ml Balance 800 ml medications Current Medications Medications Dose Ordered Sig/Didier Route Start Time Stop Time Status Last Admin Dose Admin Diagnostic Test (Pha) 1 strip ACHS 09/16/24 07:00 09/22/24 11:07 1 STRIP Dextrose 50 ml UD PRN IV 09/15/24 23:15 Vancomycin HCl 0 ml @ 0 mls/hr UD IV 09/15/24 23:15 Insulin Human Regular HS SC 09/16/24 00:00 09/17/24 22:17 2 UNITS Insulin Human Regular AC SC 09/16/24 00:00 09/22/24 11:14 3 UNITS Piperacillin Sod/ Tazobactam Sod 50 ml @ 12.5 mls/hr Q8HR IV 09/16/24 14:00 09/22/24 13:26 12.5 MLS/HR Heparin Sodium (Porcine) 5,000 units Q12HR SC 09/16/24 10:00 09/22/24 09:37 5,000 UNITS Aspirin 81 mg DAILY PO 09/17/24 10:00 09/22/24 09:33 81 MG Carvedilol 12.5 mg BID PO 09/16/24 22:00 09/22/24 09:34 12.5 MG Melatonin 5 mg HS PO 09/16/24 22:00 09/21/24 21:15 5 MG Nifedipine 30 mg DAILY PO 09/16/24 13:30 09/22/24 09:33 30 MG Acetaminophen/ Hydrocodone Bitart 1 tab QIDPRN PRN PO 09/16/24 18:00 09/21/24 05:28 1 TAB Gabapentin 300 mg TID PO 09/17/24 22:00 09/22/24 13:25 300 MG Hydralazine HCl 10 mg Q6HP PRN IV 09/17/24 18:45 09/17/24 19:06 10 MG Morphine Sulfate 1 mg Q6HP PRN IV 09/19/24 18:00 09/20/24 22:37 1 MG Atorvastatin Calcium 40 mg HS PO 09/20/24 22:00 09/21/24 21:15 40 MG Acetaminophen 650 mg Q6HP PRN PO 09/20/24 17:15 09/20/24 17:28 650 MG Polyethylene Glycol 17 gm DAILY PO 09/21/24 10:00 09/22/24 09:34 17 GM Docusate Sodium 100 mg BID PO 09/21/24 10:00 09/22/24 09:33 100 MG Examination General Appearance: Cooperative. Well developed. Well nourished. NAD Head Exam: Normal inspection Neck Exam: Normal inspection. Non-tender. Normal alignment Pulmonary/Respiratory: Chest non-tender. Clear bilateral breath sounds, trace crackles, no wheezing. Cardiovascular/Chest: Regular rate and rhythm. No murmurs. No JVD. Abdominal Exam: Normal bowel sounds. Soft. normal abdomen, no visible veins, Nontender. No hepatospenomegaly. No masses Lower extremities: Trace lower extremity edema, open ulcer wound to the 2nd digit on the right lower extremity and swelling erythema tenderness to the 1st digit right lower extremity Neuro/Mental Status: A&O x4. Coherent. Thoughts/Psych: Normal thought pattern. Appropriate mood and affect. Good judgement and insight Skin Exam: Normal inspection. Normal color. Warm. Dry laboratory and microbiology Laboratory Tests 09/22/24 09:47 Test 09/22/24 09:47 Range/Units Serum Glucose 82 74-106 mg/dL Microbiology Date/Time Source Procedure Growth Status 09/15/24 23:48 Blood Blood Culture - Final NO GROWTH AFTER 5 DAYS OF INCUBATION. Complete Labs and/or images reviewed: Labs reviewed by me (RN), Image(s) reviewed by me Problem List/Assessment/Plan Problem List/Assessment/Plan #ESRD -on dialysis MWF at [facility] -nephrology consult (Dr. Palma) - dialysis yesterday on 09/18/2024 with 1 L fluid removed - dialysis on 09/20/2024 with ultrafiltration of 3 L - dialysis today on 09/21/2024 with ultrafiltration of 1.3 L - dialysis plan on 09/23/2024 # severe peripheral arterial disease, s/p angioplasty right lower extremity - right lower extremity Doppler: Severe stenosis of the proximal right SFA. Diffuse monophasic waveforms which may also suggest aortoiliac inflow disease. Elevated velocity within the right popliteal artery consistent with hemodynamically significant stenosis - vascular surgery on board - patient underwent right lower extremity angioplasty on 09/18/24 - Surgery plan on 09/23/2024 #Diabetic foot ulcer #Osteomyelitis of the Right foot -Foot CT- Osteomyelitis of the 1st and 2nd digits involving the 1st distal phalanx, 2nd middle and distal phalanges in the distal aspect of the 2nd proximal phalanx. -Extremity Aterial Study- Severe stenosis of the proximal right SFA. Diffuse monophasic waveforms which May also suggest aortoiliac inflow disease. Elevated velocity within the right popliteal artery consistent with hemodynamically significant stenosis. -gabapentin - Zosyn IV - IV vancomycin per pharmacy -Wound consult - [place] 10 for moderate pain, morphine 1 mg for severe pain - Podiatry consult: surgery on Saturday (09/23/24) #DM type 2, with hyperglycemia # peripheral neuropathy due to above -Insulin sliding scale -HbA1C: 5.9 H - resumed home medication gabapentin #Hypertension -nifedipine 30 mg p.o. daily - carvedilol 12.5 mg p.o. b.i.d. #Hyperlipidemia -Atorvastatin 40mg po qd Low Carbohydrate diet PUD prophylaxis: protonix 40mg DVT prophylaxis: Heparin 5000 units b.i.d. Goals of care: Full code, discussed for >16 minutes on 09/22/24 Plan discussed with patient Plan discussed with Dr. Gomes Plan discussed with: Patient, Other Dietary Evaluation Review Comments: 1) Advance to [facility] 60gm + renal standard as medically feasible 2) Adalberto 1 pk daily & Nephro-lana 1 tab daily 3) monitor PO intake, lab value, wounds status, wt trend, I/O Expected Outcomes/Goals: Wound to improve Lab values to improve Fu 2-3 days Date of Service: Sep 22, 2024 Billing Provider: ROSALIA GOMES MD Common Visit Codes: [id number] INP/OBS CARE(HIGH) JAZMINEAUSTINMELANIA RESIDENT Sep 22, 2024 16:04 ROSALIA GOMES MD Sep 27, 2024 20:41
--- NOTE | 2024-09-22 16:52 | DVHPN2 ---
Progress Note - Dictate Date Seen: Sep 22, 2024 Medical Necessity Reason Pt with a Central, PICC or Fol: No Subjective Patient cut short his treatment yesterday because of right hip pain vital signs Vital Sign Date Time Temp Pulse Resp B/P (MAP) Pulse Ox O2 Delivery O2 Flow Rate FiO2 09/22/24 16:01 74 132/74 09/22/24 09:00 17 100 09/22/24 08:08 Nasal Cannula* 3 32 09/22/24 05:00 97.9 97.9 Total Intake and Output 09/21/24 09/21/24 09/22/24 15:00 23:00 07:00 Intake Total 800 ml Balance 800 ml medications Current Medications Medications Dose Ordered Sig/Didier Route Start Time Stop Time Status Last Admin Dose Admin Diagnostic Test (Pha) 1 strip ACHS 09/16/24 07:00 09/22/24 11:07 1 STRIP Dextrose 50 ml UD PRN IV 09/15/24 23:15 Vancomycin HCl 0 ml @ 0 mls/hr UD IV 09/15/24 23:15 Insulin Human Regular HS SC 09/16/24 00:00 09/17/24 22:17 2 UNITS Insulin Human Regular AC SC 09/16/24 00:00 09/22/24 11:14 3 UNITS Piperacillin Sod/ Tazobactam Sod 50 ml @ 12.5 mls/hr Q8HR IV 09/16/24 14:00 09/22/24 13:26 12.5 MLS/HR Heparin Sodium (Porcine) 5,000 units Q12HR SC 09/16/24 10:00 09/22/24 09:37 5,000 UNITS Aspirin 81 mg DAILY PO 09/17/24 10:00 09/22/24 09:33 81 MG Carvedilol 12.5 mg BID PO 09/16/24 22:00 09/22/24 09:34 12.5 MG Melatonin 5 mg HS PO 09/16/24 22:00 09/21/24 21:15 5 MG Nifedipine 30 mg DAILY PO 09/16/24 13:30 09/22/24 09:33 30 MG Acetaminophen/ Hydrocodone Bitart 1 tab QIDPRN PRN PO 09/16/24 18:00 09/21/24 05:28 1 TAB Gabapentin 300 mg TID PO 09/17/24 22:00 09/22/24 13:25 300 MG Hydralazine HCl 10 mg Q6HP PRN IV 09/17/24 18:45 09/17/24 19:06 10 MG Morphine Sulfate 1 mg Q6HP PRN IV 09/19/24 18:00 09/20/24 22:37 1 MG Atorvastatin Calcium 40 mg HS PO 09/20/24 22:00 09/21/24 21:15 40 MG Acetaminophen 650 mg Q6HP PRN PO 09/20/24 17:15 09/20/24 17:28 650 MG Polyethylene Glycol 17 gm DAILY PO 09/21/24 10:00 09/22/24 09:34 17 GM Docusate Sodium 100 mg BID PO 09/21/24 10:00 09/22/24 09:33 100 MG objective HEENT: No evidence of JVD, no oral ulcers. Pulmonary: Right lung crackles on auscultation bilaterally Cardiovascular S1-S2, no S3 or S4 Abdomen: Bowel sounds positive, soft no rebound tenderness Skin: No rash Neurological: Alert, oriented, no focal weakness Extremities: Left BKA, right leg trace edema laboratory and microbiology Laboratory Tests 09/22/24 09:47 Test 09/22/24 09:47 Range/Units Serum Glucose 82 74-106 mg/dL Assessment/Plan Assessment: ESKD on HD Osteomyelitis right foot Peripheral vascular disease status post angioplasty right lower extremity DM II HTN Right hip pain Plan and recommendations Hemodialysis tomorrow Saturday and Saturday X-ray of the right hip We will continue with the his outpatient schedule of Saturday. Surgery as per Podiatry. Going to the OR on Saturday and dialysis afterwards Fluid restriction, continue binders, continue antihypertensive meds Plan of care discussed with the patient and resident Dietary Evaluation Review Comments: 1) Advance to [facility] 60gm + renal standard as medically feasible 2) Adalberto 1 pk daily & Nephro-lana 1 tab daily 3) monitor PO intake, lab value, wounds status, wt trend, I/O Expected Outcomes/Goals: Wound to improve Lab values to improve Fu 2-3 days Plan discussed with: Patient MOE TURNER MD Sep 22, 2024 16:52
[2024-09-22 17:00] VITALS: BP 108/63; PULSE 68; RESP 19; TEMP 97.5; O2SAT 94
--- NOTE | 2024-09-22 18:55 | DVH ---
Indication: right hip pain Technique: XY R HIP 1V [id number] Comparison: None FINDINGS/IMPRESSION: Limited by habitus. If symptoms persists recommend obtaining CT of the pelvis /r ight hip to evaluate No radiographic evidence for acute fracture or dislocation. No significant soft tissue edema. No rad iopaque foreign body. [id number] degenerate changes bilateral hips Atherosclerotic disease.
[2024-09-22 20:00] VITALS: PULSE 71
[2024-09-22 20:39] VITALS: BP 112/58; PULSE 71; RESP 18; TEMP 98.1; O2SAT 98
[2024-09-23] VITALS (8 sets, daily range): BP systolic 104–155; BP diastolic 61–86; PULSE 78–91; RESP 18–21; TEMP 97.4–98.2; O2SAT 97–100
[2024-09-23] MEDS ORDERED: fentaNYL CITRATE 100 MCG/2 ML VL ONE (06:57)
[2024-09-23] MEDS ORDERED: SODIUM CHLORIDE LOCK 10 ML ONE (06:57)
[2024-09-23] MEDS ORDERED: PROPOFOL 10 MG/ML 20 ML IV ONE (06:57)
[2024-09-23] MEDS ORDERED: ONDANSETRON HCL 4 MG/2 ML VIAL ONE (06:57)
[2024-09-23] MEDS ORDERED: LIDOCAINE 1% INJ PF 5ML AMP ONE (06:57)
[2024-09-23] MEDS ORDERED: MIDAZOLAM HCL 2MG/2ML 2ml VIAL (1mg/ml) ONE (06:57)
[2024-09-23] MEDS ORDERED: KETAMINE 50mg/ML 1ml syringe ONE (06:57)
[2024-09-23] MEDS ORDERED: MORPHINE SULFATE INJ 2 MG/ml SYRG IV PRN (07:15)
[2024-09-23] MEDS ORDERED: MORPHINE SULFATE 4 MG/ML SYR/VIAL IV PRN (07:15)
[2024-09-23] MEDS ORDERED: HYDROmorphone HCL 2 MG/ML VL/or syr IV PRN ×2 (07:15)
[2024-09-23] MEDS: ROPIVACAINE 0.5% (5MG/ML) 20ML AMPULE IJ ONE (07:43)
[2024-09-23] MEDS: BACITRACIN TOP OINT 1 UD PKG TOP ONE (08:09)
--- NOTE | 2024-09-23 08:22 | DVHOP2 ---
Operative Report - 2 Report Details Date: 09/23/24 Preop Diagnosis: Osteomyelitis right great toe Osteomyelitis 2nd right toe Postop Diagnosis: Same with chronic nonhealing ulceration to the right great toe as well as the 2nd right toe with bone exposure Surgeon: Avila Fernandez, DPM, MHA, MS, DABMSP Artificial Plastic Eye Maker: None Anesthesiologist: Dr. Funk Anesthesia: Mac, Local Consent: The patient was informed of the risks and benefits of the procedure. These include but are not limited to complications of anesthesia, postoperative infection, incomplete relief of symptoms, recurrence of symptoms, damage to blood vessels, nerves and tendons, deep venous thrombosis, pulmonary embolism and possible need for repeat surgery in the future. Once again complete discussion of the pros and cons risks and benefits of the proposed surgical procedure was discussed yesterday and this morning yesterday was conducted with the patient at bedside with his daughter present they both understand the possibility of having to operated again from any unforeseen conditions the possibility of further amputation midfoot below and above the knee as deemed necessary though unlikely at this juncture. Alternative methods completed discussed with the patient and his daughter in detail surgery was opted. The proposed surgical procedures amputation of the right great toe and the 2nd right toe at the metatarsophalangeal joint. Complications: None Estimated Blood Loss: Less than 5 cc Indications for Surgery: Osteomyelitis right great toe Osteomyelitis 2nd right toe Chronic nonhealing ulcerations with bone exposure to the right great and 2nd toes Name of Procedure Performed Amputation of the right great toe at the metatarsophalangeal joint Amputation of the 2nd right toe at the metatarsophalangeal joint Procedure Details Procedure Details: The patient was brought to the operating room placed on the operating table in the supine position. After MAC anesthesia was achieved with proximally 20 cc of 0.25% Naropin was injected in a Reynolds block as well as V block fashion to the right great and 2nd toes without incident. The right foot and leg was then prepped and draped in the proper aseptic manner. Attention was now directed to procedure 1. Procedure 1. Amputation of the right great toe at the metatarsophalangeal joint: After topographical markings to ensure proper flap closure, an incision was made by means of sharp and blunt dissection with care being taken to preserve all underlying vital structures all bleeders were bovied or ligated as necessary. Deep dissection was carried down to the level of the capsule the capsule was incised linearly reflecting the 1st metatarsophalangeal joint of the right foot. Utilizing deep dissection of the right great toe at the metatarsophalangeal joint was disarticulated and sent to pathology as specimen. Area was lavaged with copious amounts of Ancef irrigant was aspirated no debris was noted. Deep tissue was closed and reanastomosed utilizing 3-0 Vicryl suture, subcuticular stitch with 4-0 Vicryl suture, skin with small skin myles. Attention was now directed to procedure 2. Procedure 2. Amputation of the 2nd right toe at the metatarsophalangeal joint: The same procedure and deformity as was seen in performed in procedure 1. [place] seen and performed the procedure 2. Without any additions or deletions and with the end result being the same. It is important to note that three deep cultures were taken from the right great and 2nd toes and sub pathology as a specimen. It is also important to note that the patient was prophylaxed with 2 g of IV Ancef prior to surgery. The patient will continue with IV antibiotics for a regimen of 4-6 weeks as well. The patient tolerated the procedure well left the operating recovery room stable condition. There were no intraoperative complications. Specimen: Osteomyelitic right great toe and 2nd right toe. Condition Stable Disposition Still a Patient AVILA FERNANDEZ DPM Sep 23, 2024 08:22
[2024-09-23 10:40] LABS: Alanine Aminotransferase 26 U/L (7-40); Albumin 4.2 g/dL (3.2-4.8); Anion Gap 16 (5-15); BUN/Creatinine Ratio 5.4 (10.0-20.0); Calcium 9.0 mg/dL (8.7-10.4); Carbon Dioxide 28 mmol/L (20-31); Potassium 4.4 mmol/L (3.5-5.1); Sodium 137 mmol/L (136-145); Total Protein 7.5 g/dL (5.7-8.2)
[2024-09-23 10:45] LABS: Alkaline Phosphatase 141 U/L (46-116); Bilirubin, Total 0.2 mg/dL (0.2-1.0); Blood Urea Nitrogen 48 mg/dL (9-23); Chloride 93 mmol/L (98-107); Glucose 144 mg/dL (74-106)
--- NOTE | 2024-09-23 15:09 | DVHPNRES ---
Progress Note Date Seen: Sep 23, 2024 Resident Creating Document: RUSTY LUCERO Medical Necessity Reason Pt with a Central, PICC or Fol: No Subjective Review of Systems Patient is a 54-year-old male with a past medical history of diabetes mellitus, hypertension, stroke, hyperlipidemia, ESRD, MICHAEL presented to the ED with a chief complain of 1 month of right foot 2nd digit sharp pain that started after a traumatic toe nail avulsion, that created an ulcer in 2nd digit nail bed, associated with foot swelling. The patient states he was sent to the ED by doctor for possible admission of osteomyelitis. CT scan of right foot showed Osteomyelitis of the 1st and 2nd digits involving the 1st distal phalanx, 2nd middle and distal phalanges in the distal aspect of the 2nd proximal phalanx. Soft tissue swelling and irregularity along the dorsal aspect of the 1st and 2nd digits at the level of the phalanges likely skin wounds. Chronic appearing deformity of the 5th metatarsal which may be from prior infection or trauma. 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 The patient denies fever, chills, SOB, nausea, vomit or other symptoms. 09/17/2024: Patient done with dialysis yesterday, removed 2.5 L. Patient consulted with foot doctor and decided to surgery tomorrow. Patient shows right- sided weakness. Extremity Aterial Study- Severe stenosis of the proximal right SFA. Diffuse monophasic waveforms which May also suggest aortoiliac inflow disease. Elevated velocity within the right popliteal artery consistent with hemodynamically significant stenosis. 09/18/2024: Patient underwent angioplasty. After procedure patient report difficulty breath and discomfort, sitting down the chairs he is stable to breath. 09/19/2024: Patient seen and examined at bedside today, noted to have an open ulcer wound to the 2nd digit, which was present on admission, on the right lower extremity and swelling erythema tenderness to the 1st digit right lower extremity. Patient had dialysis with 1 L removed yesterday however had to be cut short due to patient feeling anxious, scheduled for repeat dialysis tomorrow. Chest x-ray today showed pulmonary vascular congestion. Patient notes improved pain, repeat consult sent to Podiatry. Detailed discussion held with patient and daughter at bedside were all questions were answered and concerns were addressed. 09/20/2024: Patient seen and examined at bedside today, complains with hip pain and discomfort. Patient underwent dialysis today with ultrafiltration of 3 L. Patient will begin NPO after midnight in preparation for a procedure scheduled tomorrow. 09/21/2024: Patient seen and examined at bedside today, complains with right leg and hip pain. Patient was seen by podiatry and scheduled for surgery on Saturday. Patient planed to receive dialysis on Saturday afternoon. Patient had dialysis with 3 L removed today. 09/22/2024: Patient seen and examined at bedside today. On evaluation today, he states he is well, pain is manageable. His vitals have remained stable. Patient will begin NPO after midnight in preparation for a procedure scheduled tomorrow. 09/23/2024: Patient seen and examined by the bedside today. Patient done surgery today mornign and started with Vancomycin with dialysis. Patient denies fever, chills, SOB, nausea, vomit or other symptoms. Objective vital signs Vital Sign Date Time Temp Pulse Resp B/P (MAP) Pulse Ox O2 Delivery O2 Flow Rate FiO2 09/23/24 13:00 98.2 89 20 155/86 (109) 98 98.2 09/23/24 09:15 Nasal Cannula 4.0 97 Total Intake and Output 09/22/24 09/22/24 09/23/24 15:00 23:00 07:00 Intake Total 50 ml 680 ml 850 ml Output Total 0 ml Balance 50 ml 680 ml 850 ml medications Current Medications Medications Dose Ordered Sig/Didier Route Start Time Stop Time Status Last Admin Dose Admin Diagnostic Test (Pha) 1 strip ACHS 09/16/24 07:00 09/23/24 10:53 1 STRIP Dextrose 50 ml UD PRN IV 09/15/24 23:15 Vancomycin HCl 0 ml @ 0 mls/hr UD IV 09/15/24 23:15 Insulin Human Regular HS SC 09/16/24 00:00 09/22/24 21:46 2 UNITS Insulin Human Regular AC SC 09/16/24 00:00 09/23/24 10:55 2 UNITS Piperacillin Sod/ Tazobactam Sod 50 ml @ 12.5 mls/hr Q8HR IV 09/16/24 14:00 09/23/24 05:41 12.5 MLS/HR Heparin Sodium (Porcine) 5,000 units Q12HR SC 09/16/24 10:00 09/22/24 21:45 5,000 UNITS Aspirin 81 mg DAILY PO 09/17/24 10:00 09/22/24 09:33 81 MG Carvedilol 12.5 mg BID PO 09/16/24 22:00 09/22/24 21:41 12.5 MG Melatonin 5 mg HS PO 09/16/24 22:00 09/22/24 21:41 5 MG Nifedipine 30 mg DAILY PO 09/16/24 13:30 09/22/24 09:33 30 MG Acetaminophen/ Hydrocodone Bitart 1 tab QIDPRN PRN PO 09/16/24 18:00 09/23/24 13:03 1 TAB Gabapentin 300 mg TID PO 09/17/24 22:00 09/23/24 13:00 300 MG Hydralazine HCl 10 mg Q6HP PRN IV 09/17/24 18:45 09/17/24 19:06 10 MG Morphine Sulfate 1 mg Q6HP PRN IV 09/19/24 18:00 09/20/24 22:37 1 MG Atorvastatin Calcium 40 mg HS PO 09/20/24 22:00 09/22/24 21:40 40 MG Acetaminophen 650 mg Q6HP PRN PO 09/20/24 17:15 09/20/24 17:28 650 MG Polyethylene Glycol 17 gm DAILY PO 09/21/24 10:00 09/22/24 09:34 17 GM Docusate Sodium 100 mg BID PO 09/21/24 10:00 09/22/24 21:41 100 MG Examination General Appearance: Cooperative. Well developed. Well nourished. NAD Head Exam: Normal inspection Neck Exam: Normal inspection. Non-tender. Normal alignment Pulmonary/Respiratory: Chest non-tender. Clear bilateral breath sounds, trace crackles, no wheezing. Cardiovascular/Chest: Regular rate and rhythm. No murmurs. No JVD. Abdominal Exam: Normal bowel sounds. Soft. normal abdomen, no visible veins, Nontender. No hepatospenomegaly. No masses Lower extremities: Trace lower extremity edema, open ulcer wound to the 2nd digit on the right lower extremity and swelling erythema tenderness to the 1st digit right lower extremity Neuro/Mental Status: A&O x4. Coherent. Thoughts/Psych: Normal thought pattern. Appropriate mood and affect. Good judgement and insight Skin Exam: Normal inspection. Normal color. Warm. Dry laboratory and microbiology Laboratory Tests 09/23/24 09:43 09/22/24 09:47 Test 09/23/24 09:43 Range/Units Serum Glucose 144 H 74-106 mg/dL Microbiology Date/Time Source Procedure Growth Status 09/23/24 07:56 Other Right Gram Stain - Final Resulted 09/23/24 07:56 Other Right Anaerobic Culture Pending Resulted 09/23/24 07:56 Other Right Aerobic Culture Pending Resulted 09/15/24 23:48 Blood Blood Culture - Final NO GROWTH AFTER 5 DAYS OF INCUBATION. Complete Labs and/or images reviewed: Labs reviewed by me, Image(s) reviewed by me Problem List/Assessment/Plan Problem List/Assessment/Plan #ESRD -on dialysis MWF at [facility] -nephrology consult (Dr. Palma) - dialysis yesterday on 09/18/2024 with 1 L fluid removed - dialysis on 09/20/2024 with ultrafiltration of 3 L - dialysis today on 09/21/2024 with ultrafiltration of 1.3 L - dialysis plan on 09/23/2024 # severe peripheral arterial disease, s/p angioplasty right lower extremity - right lower extremity Doppler: Severe stenosis of the proximal right SFA. Diffuse monophasic waveforms which may also suggest aortoiliac inflow disease. Elevated velocity within the right popliteal artery consistent with hemodynamically significant stenosis - vascular surgery on board - patient underwent right lower extremity angioplasty on 09/18/24 - Surgery plan on 09/23/2024 - Hip X-Ray - [id number] degenerate changes bilateral hips #Diabetic foot ulcer #Osteomyelitis of the Right foot -Foot CT- Osteomyelitis of the 1st and 2nd digits involving the 1st distal phalanx, 2nd middle and distal phalanges in the distal aspect of the 2nd proximal phalanx. -Extremity Aterial Study- Severe stenosis of the proximal right SFA. Diffuse monophasic waveforms which May also suggest aortoiliac inflow disease. Elevated velocity within the right popliteal artery consistent with hemodynamically significant stenosis. -gabapentin - Zosyn IV - IV vancomycin per pharmacy -Wound consult - [place] 10 for moderate pain, morphine 1 mg for severe pain - Podiatry consult: surgery on Saturday (09/23/24) - Vancomycin with dialysis. #DM type 2, with hyperglycemia # peripheral neuropathy due to above -Insulin sliding scale -HbA1C: 5.9 H - resumed home medication gabapentin #Hypertension -nifedipine 30 mg p.o. daily - carvedilol 12.5 mg p.o. b.i.d. #Hyperlipidemia -Atorvastatin 40mg po qd Low Carbohydrate diet PUD prophylaxis: protonix 40mg DVT prophylaxis: Heparin 5000 units b.i.d. Goals of care: Full code, discussed for >16 minutes on 09/23/24 Plan discussed with patient Plan discussed with Dr. Gomes Plan discussed with: Patient, Other (RN) My Orders My Orders Orders - RUSTY LUCERO Procedure Category Date Status Time Complete Blood Count LAB 09/24/24 Verified 04:00 Basic Metabolic Panel LAB 09/24/24 Verified 04:00 Dietary Evaluation Review Comments: 1) Advance to [facility] 60gm + renal standard as medically feasible 2) Adalberto 1 pk daily & Nephro-lana 1 tab daily 3) monitor PO intake, lab value, wounds status, wt trend, I/O Expected Outcomes/Goals: Wound to improve Lab values to improve Fu 2-3 days Date of Service: Sep 23, 2024 Billing Provider: ROSALIA GOMES MD Common Visit Codes: [id number] INP/OBS CARE(MOD) RUSTY LUCERO Sep 23, 2024 15:09 ROSALIA GOMES MD Sep 27, 2024 20:42
--- NOTE | 2024-09-23 16:56 | DVHPN2 ---
Progress Note - Dictate Date Seen: Sep 23, 2024 Medical Necessity Reason Pt with a Central, PICC or Fol: No Subjective Status post hemodialysis today patient is feeling well no complaints family at bedside. vital signs Vital Sign Date Time Temp Pulse Resp B/P (MAP) Pulse Ox O2 Delivery O2 Flow Rate FiO2 09/23/24 13:00 98.2 89 20 155/86 (109) 98 98.2 09/23/24 09:15 Nasal Cannula 4.0 97 Total Intake and Output 09/22/24 09/22/24 09/23/24 15:00 23:00 07:00 Intake Total 50 ml 680 ml 850 ml Output Total 0 ml Balance 50 ml 680 ml 850 ml medications Current Medications Medications Dose Ordered Sig/Didier Route Start Time Stop Time Status Last Admin Dose Admin Diagnostic Test (Pha) 1 strip ACHS 09/16/24 07:00 09/23/24 10:53 1 STRIP Dextrose 50 ml UD PRN IV 09/15/24 23:15 Vancomycin HCl 0 ml @ 0 mls/hr UD IV 09/15/24 23:15 Insulin Human Regular HS SC 09/16/24 00:00 09/22/24 21:46 2 UNITS Insulin Human Regular AC SC 09/16/24 00:00 09/23/24 10:55 2 UNITS Piperacillin Sod/ Tazobactam Sod 50 ml @ 12.5 mls/hr Q8HR IV 09/16/24 14:00 09/23/24 05:41 12.5 MLS/HR Heparin Sodium (Porcine) 5,000 units Q12HR SC 09/16/24 10:00 09/22/24 21:45 5,000 UNITS Aspirin 81 mg DAILY PO 09/17/24 10:00 09/22/24 09:33 81 MG Carvedilol 12.5 mg BID PO 09/16/24 22:00 09/22/24 21:41 12.5 MG Melatonin 5 mg HS PO 09/16/24 22:00 09/22/24 21:41 5 MG Nifedipine 30 mg DAILY PO 09/16/24 13:30 09/22/24 09:33 30 MG Acetaminophen/ Hydrocodone Bitart 1 tab QIDPRN PRN PO 09/16/24 18:00 09/23/24 13:03 1 TAB Gabapentin 300 mg TID PO 09/17/24 22:00 09/23/24 13:00 300 MG Hydralazine HCl 10 mg Q6HP PRN IV 09/17/24 18:45 09/17/24 19:06 10 MG Morphine Sulfate 1 mg Q6HP PRN IV 09/19/24 18:00 09/20/24 22:37 1 MG Atorvastatin Calcium 40 mg HS PO 09/20/24 22:00 09/22/24 21:40 40 MG Acetaminophen 650 mg Q6HP PRN PO 09/20/24 17:15 09/20/24 17:28 650 MG Polyethylene Glycol 17 gm DAILY PO 09/21/24 10:00 09/22/24 09:34 17 GM Docusate Sodium 100 mg BID PO 09/21/24 10:00 09/22/24 21:41 100 MG objective HEENT: No evidence of JVD, no oral ulcers. Pulmonary: Right lung crackles on auscultation bilaterally Cardiovascular S1-S2, no S3 or S4 Abdomen: Bowel sounds positive, soft no rebound tenderness Skin: No rash Neurological: Alert, oriented, no focal weakness Extremities: Left BKA, right leg trace edema laboratory and microbiology Laboratory Tests 09/23/24 09:43 09/22/24 09:47 Test 09/23/24 09:43 Range/Units Serum Glucose 144 H 74-106 mg/dL Assessment/Plan Assessment: ESKD on HD Saturday Osteomyelitis right foot Peripheral vascular disease status post angioplasty right lower extremity DM II HTN Right hip pain Plan and recommendations Hemodialysis Saturday Status post amputation of the right foot Surgery as per Podiatry. Going to the OR on Saturday and dialysis afterwards Fluid restriction, continue binders, continue antihypertensive meds Ideally patient to get antibiotics with dialysis Plan of care discussed with the patient and resident Dietary Evaluation Review Comments: 1) Advance to [facility] 60gm + renal standard as medically feasible 2) Adalberto 1 pk daily & Nephro-lana 1 tab daily 3) monitor PO intake, lab value, wounds status, wt trend, I/O Expected Outcomes/Goals: Wound to improve Lab values to improve Fu 2-3 days Plan discussed with: Patient, Daughter ISMAEL WESTMOE Pittman MD Sep 23, 2024 16:56
[2024-09-23] MEDS: SODIUM CHL 0.9% 1000 ML BAG XX ONE (18:29)
[2024-09-23] MEDS: METOCLOPRAMIDE HCL 5MG/ml INJ 2ml VIAL IV ONE (18:30)
[2024-09-23] MEDS: ACCU-CHEK COMFORT CURVE STRIP VI ONE (18:30)
[2024-09-23] MEDS: ceFAZolin 1GM VL ONE (18:30)
[2024-09-23] MEDS: EPOETIN ALFA-EPBX 4,000 UNIT/ML VIAL SC ONE (20:34)
[2024-09-24 01:00] VITALS: BP 168/79; PULSE 81; RESP 19; TEMP 98.1; O2SAT 96
[2024-09-24 05:00] VITALS: BP 119/71; PULSE 81; RESP 18; TEMP 98; O2SAT 100
[2024-09-24 06:47] LABS: Hematocrit 34.3 % (41.0-53.0); Hemoglobin 11.7 g/dL (13.5-17.5); Mean Corpuscular Hemoglobin 31.9 pg (28.0-32.0); Mean Corpuscular Volume 93.9 fL (80.0-100.0); Nucleated Red Blood Cells % 0.1 %
[2024-09-24 06:56] LABS: Potassium 3.9 mmol/L (3.5-5.1); Sodium 139 mmol/L (136-145)
[2024-09-24 06:57] LABS: Anion Gap 16 (5-15); Carbon Dioxide 29 mmol/L (20-31)
[2024-09-24 06:58] LABS: Calcium 9.8 mg/dL (8.7-10.4)
[2024-09-24 07:03] LABS: BUN/Creatinine Ratio 4.8 (10.0-20.0)
[2024-09-24 07:04] LABS: Blood Urea Nitrogen 34 mg/dL (9-23); Chloride 94 mmol/L (98-107); Glucose 118 mg/dL (74-106)
[2024-09-24 09:00] VITALS: BP 105/72; PULSE 72; RESP 16; TEMP 98; O2SAT 98
[2024-09-24 12:28] VITALS: BP 105/72; PULSE 72
[2024-09-24 12:54] VITALS: BP 111/49; PULSE 65; RESP 14; TEMP 98; O2SAT 98
[2024-09-24] MEDS ORDERED: PERCOT PO (13:37)
--- NOTE | 2024-09-24 14:02 | DVHPN2 ---
Progress Note - Dictate Date Seen: Sep 24, 2024 Medical Necessity Reason Pt with a Central, PICC or Fol: No Subjective Patient is feeling well he wants to go home vital signs Vital Sign Date Time Temp Pulse Resp B/P (MAP) Pulse Ox O2 Delivery O2 Flow Rate FiO2 09/24/24 12:54 98.0 65 14 111/49 (69) 98 98.0 09/23/24 20:00 Nasal Cannula* 2 28 Total Intake and Output 09/23/24 09/23/24 09/24/24 15:00 23:00 07:00 Intake Total 240 ml 500 ml Balance 240 ml 500 ml medications Current Medications Medications Dose Ordered Sig/Didier Route Start Time Stop Time Status Last Admin Dose Admin Diagnostic Test (Pha) 1 strip ACHS 09/16/24 07:00 09/24/24 11:52 1 STRIP Dextrose 50 ml UD PRN IV 09/15/24 23:15 Vancomycin HCl 0 ml @ 0 mls/hr UD IV 09/15/24 23:15 Insulin Human Regular HS SC 09/16/24 00:00 09/23/24 22:07 6 UNITS Insulin Human Regular AC SC 09/16/24 00:00 09/24/24 11:52 3 UNITS Piperacillin Sod/ Tazobactam Sod 50 ml @ 12.5 mls/hr Q8HR IV 09/16/24 14:00 09/24/24 06:25 12.5 MLS/HR Heparin Sodium (Porcine) 5,000 units Q12HR SC 09/16/24 10:00 09/23/24 22:06 5,000 UNITS Aspirin 81 mg DAILY PO 09/17/24 10:00 09/24/24 11:03 81 MG Carvedilol 12.5 mg BID PO 09/16/24 22:00 09/24/24 11:03 12.5 MG Melatonin 5 mg HS PO 09/16/24 22:00 09/23/24 22:02 5 MG Nifedipine 30 mg DAILY PO 09/16/24 13:30 09/24/24 11:04 30 MG Acetaminophen/ Hydrocodone Bitart 1 tab QIDPRN PRN PO 09/16/24 18:00 09/23/24 17:15 1 TAB Gabapentin 300 mg TID PO 09/17/24 22:00 09/24/24 06:24 300 MG Hydralazine HCl 10 mg Q6HP PRN IV 09/17/24 18:45 09/24/24 02:32 10 MG Morphine Sulfate 1 mg Q6HP PRN IV 09/19/24 18:00 09/24/24 02:38 1 MG Atorvastatin Calcium 40 mg HS PO 09/20/24 22:00 09/23/24 22:02 40 MG Acetaminophen 650 mg Q6HP PRN PO 09/20/24 17:15 09/20/24 17:28 650 MG Polyethylene Glycol 17 gm DAILY PO 09/21/24 10:00 09/22/24 09:34 17 GM Docusate Sodium 100 mg BID PO 09/21/24 10:00 09/24/24 11:03 100 MG objective HEENT: No evidence of JVD, no oral ulcers. Pulmonary: Right lung crackles on auscultation bilaterally Cardiovascular S1-S2, no S3 or S4 Abdomen: Bowel sounds positive, soft no rebound tenderness Skin: No rash Neurological: Alert, oriented, no focal weakness Extremities: Left BKA, right leg trace edema laboratory and microbiology Laboratory Tests 09/24/24 06:02 Test 09/24/24 06:02 Range/Units Serum Glucose 118 H 74-106 mg/dL Assessment/Plan Assessment: ESKD on HD Saturday Osteomyelitis right foot Peripheral vascular disease status post angioplasty right lower extremity DM II HTN Right hip pain Plan and recommendations Hemodialysis Saturday, he will go to his dialysis unit tomorrow Status post amputation of the right foot Continue current meds Vancomycin for four weeks with dialysis Fluid restriction, continue binders, continue antihypertensive meds Ideally patient to get antibiotics with dialysis Plan of care discussed with the patient and resident Dietary Evaluation Review Comments: 1) Advance to [facility] 60gm + renal standard as medically feasible 2) Adalberto 1 pk daily & Nephro-lana 1 tab daily 3) monitor PO intake, lab value, wounds status, wt trend, I/O Expected Outcomes/Goals: Wound to improve Lab values to improve Fu 2-3 days Plan discussed with: Patient MOE TURNER MD Sep 24, 2024 14:02
[2024-09-24] MEDS: VANCOMYCIN 500mg/100mL 100 ML IV ONE (14:15)
--- NOTE | 2024-09-24 18:25 | DVHDSRES ---
Discharge Summary Date of Admission Resident Creating Document: RUSTY LUCERO RESIDENT Sep 15, 2024 at 23:11 Date of Discharge: Sep 24, 2024 Labs/Diagnostic Data: Laboratory Results Test 09/24/24 11:15 09/24/24 06:02 09/23/24 09:43 09/22/24 09:47 POC Glucose 175 mg/dl (70-106) White Blood Count 5.2 10^3/uL (4.4-10.8) Red Blood Count 3.65 10^6/uL (4.5-5.90) Hemoglobin 11.7 g/dL (13.5-17.5) Hematocrit 34.3 % (41.0-53.0) Mean Corpuscular Volume 93.9 fL (80.0-100.0) Mean Corpuscular Hemoglobin 31.9 pg (28.0-32.0) Mean Corpuscular Hemoglobin Concent 34.0 g/dL (32.0-36.0) Red Cell Distribution Width 14.2 % (11.8-14.3) Platelet Count 189 10^3/uL (140-450) Mean Platelet Volume 7.8 fL (6.9-10.8) Neutrophils (%) (Auto) 74.5 % (37.0-80.0) Lymphocytes (%) (Auto) 12.2 % (10.0-50.0) Monocytes (%) (Auto) 12.2 % (0.0-12.0) Eosinophils (%) (Auto) 0.7 % (0.0-7.0) Basophils (%) (Auto) 0.4 % (0.0-2.0) Neutrophils # (Auto) 3.9 10 ^3/uL (1.6-8.6) Lymphocytes # (Auto) 0.6 10 ^3/uL (0.4-5.4) Monocytes # (Auto) 0.6 10 ^3/uL (0-1.3) Eosinophils # (Auto) 0 10 ^3/uL (0-0.8) Basophils # (Auto) 0 10 ^3/uL (0-0.2) Nucleated Red Blood Cells 0.1 % Sodium Level 139 mmol/L (136-145) Potassium Level 3.9 mmol/L (3.5-5.1) Chloride Level 94 mmol/L (98-107) Carbon Dioxide Level 29 mmol/L (20-31) Anion Gap 16 (5-15) Blood Urea Nitrogen 34 mg/dL (9-23) Creatinine 7.09 mg/dL (0.700-1.30) Glomerular Filtration Rate Calc 8 mL/min (>90) BUN/Creatinine Ratio 4.8 (10.0-20.0) Serum Glucose 118 mg/dL (74-106) Calcium Level 9.8 mg/dL (8.7-10.4) Random Vancomycin Level 15.5 ug/mL (5-10) Total Bilirubin 0.2 mg/dL (0.2-1.0) Aspartate Amino Transferase (AST) 34 U/L (13-40) Alanine Aminotransferase (ALT) 26 U/L (7-40) Alkaline Phosphatase 141 U/L (46-116) Total Protein 7.5 g/dL (5.7-8.2) Albumin 4.2 g/dL (3.2-4.8) Differential Total Cells Counted 100.0 (100) Neutrophils % (Manual) 66 (37.0-80.0) Band Neutrophils % (Manual) 0 Lymphocytes % (Manual) 20 (10.0-50.0) Monocytes % (Manual) 10 (0-12) Eosinophils % (Manual) 4 (0-7) Basophils % (Manual) 0 (0.0-2.0) Metamyelocytes % (manual) 0 Myelocytes % (Manual) 0 Promyelocytes % (Manual) 0 Blast Cells % (Manual) 0 Reactive Lymphocytes 0 Platelet Estimate Adequate Test 09/20/24 06:28 09/17/24 19:49 09/15/24 19:00 Hepatitis B Surface Antigen Negative (Negative) Hepatitis B Surface Antibody Positive (Negative) Prothrombin Time 10.7 sec (9.3-11.8) Prothrombin Time INR 1.01 (0.9-1.15) Activated Partial Thromboplast Time 28.8 SEC (24.5-34.5) Erythrocyte Sedimentation Rate 34 mm/hr (0-20) Hemoglobin A1c 5.9 % A1C (<5.7) Other Laboratory Tests 09/24/24 06:02 Brief Hx & Hospital Course: Patient is a 54-year-old male with a past medical history of diabetes mellitus, hypertension, stroke, hyperlipidemia, ESRD, MICHAEL presented to the ED with a chief complain of 1 month of right foot 2nd digit sharp pain that started after a traumatic toe nail avulsion, that created an ulcer in 2nd digit nail bed, associated with foot swelling. The patient states he was sent to the ED by doctor for possible admission of osteomyelitis. CT scan of right foot showed Osteomyelitis of the 1st and 2nd digits involving the 1st distal phalanx, 2nd middle and distal phalanges in the distal aspect of the 2nd proximal phalanx. Soft tissue swelling and irregularity along the dorsal aspect of the 1st and 2nd digits at the level of the phalanges likely skin wounds. Chronic appearing deformity of the 5th metatarsal which may be from prior infection or trauma. 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 The patient denies fever, chills, SOB, nausea, vomit or other symptoms. 09/17/2024: Patient done with dialysis yesterday, removed 2.5 L. Patient consulted with foot doctor and decided to surgery tomorrow. Patient shows right- sided weakness. Extremity Aterial Study- Severe stenosis of the proximal right SFA. Diffuse monophasic waveforms which May also suggest aortoiliac inflow disease. Elevated velocity within the right popliteal artery consistent with hemodynamically significant stenosis. 09/18/2024: Patient underwent angioplasty. After procedure patient report difficulty breath and discomfort, sitting down the chairs he is stable to breath. 09/19/2024: Patient seen and examined at bedside today, noted to have an open ulcer wound to the 2nd digit, which was present on admission, on the right lower extremity and swelling erythema tenderness to the 1st digit right lower extremity. Patient had dialysis with 1 L removed yesterday however had to be cut short due to patient feeling anxious, scheduled for repeat dialysis tomorrow. Chest x-ray today showed pulmonary vascular congestion. Patient notes improved pain, repeat consult sent to Podiatry. Detailed discussion held with patient and daughter at bedside were all questions were answered and concerns were addressed. 09/20/2024: Patient seen and examined at bedside today, complains with hip pain and discomfort. Patient underwent dialysis today with ultrafiltration of 3 L. Patient will begin NPO after midnight in preparation for a procedure scheduled tomorrow. 09/21/2024: Patient seen and examined at bedside today, complains with right leg and hip pain. Patient was seen by podiatry and scheduled for surgery on Saturday morning. Patient planed to receive dialysis on Saturday afternoon. Patient had dialysis with 3 L removed today. 09/22/2024: Patient seen and examined at bedside today. On evaluation today, he states he is well, pain is manageable. His vitals have remained stable. Patient will begin NPO after midnight in preparation for a procedure scheduled tomorrow. 09/23/2024: Patient seen and examined by the bedside today. Patient done surgery today mornign and started with Vancomycin with dialysis. Patient denies fever, chills, SOB, nausea, vomit or other symptoms. General Appearance: Cooperative. Well developed. Well nourished. NAD Head Exam: Normal inspection Neck Exam: Normal inspection. Non-tender. Normal alignment Pulmonary/Respiratory: Chest non-tender. Clear bilateral breath sounds, trace crackles, no wheezing. Cardiovascular/Chest: Regular rate and rhythm. No murmurs. No JVD. Abdominal Exam: Normal bowel sounds. Soft. normal abdomen, no visible veins, Nontender. No hepatospenomegaly. No masses Lower extremities: Trace lower extremity edema, open ulcer wound to the 2nd digit on the right lower extremity and swelling erythema tenderness to the 1st digit right lower extremity Neuro/Mental Status: A&O x4. Coherent. Thoughts/Psych: Normal thought pattern. Appropriate mood and affect. Good judgement and insight Skin Exam: Normal inspection. Normal color. Warm. Dry Operations or Procedures PROCEDURE(s): RHIP1 - R HIP 1V XRAY REASON: right hip pain ORDER NUMBER(s): [id number], ACCESSION NUMBER(s): [id number] Indication: right hip pain Technique: XY R HIP 1V XRAYXY Comparison: None FINDINGS/IMPRESSION: Limited by habitus. If symptoms persists recommend obtaining CT of the pelvis /right hip to evaluate No radiographic evidence for acute fracture or dislocation. No significant soft tissue edema. No radiopaque foreign body. [id number] degenerate changes bilateral hips Atherosclerotic disease. - ------ PROCEDURE(s): CXRP - CHEST PORTABLE REASON: crackles ORDER NUMBER(s): [id number], ACCESSION NUMBER(s): [id number] CHEST RADIOGRAPH Indication: crackles Technique: Single frontal view of the chest was obtained COMPARISON: XY CHEST PORTABLE on DOS: 09/17/24, R RIB XRAY on DOS: 08/24/20 FINDINGS: Lines and Tubes: None Lungs: Congestion Pleura: No effusion. No pneumothorax. Cardiomediastinal contours: Unremarkable Bones: Unremarkable IMPRESSION: Pulmonary vascular congestion, Unchanged - ------ PROCEDURE(s): CXRP - CHEST PORTABLE REASON: pre-op requirement ORDER NUMBER(s): [id number], ACCESSION NUMBER(s): [id number] EXAM: XY CHEST PORTABLE HISTORY: pre-op requirement TECHNIQUE: 1 view of the chest COMPARISON: R RIB XRAY on DOS: 08/24/20 FINDINGS/IMPRESSION: LUNGS: No pleural effusion, consolidation, or pneumothorax . Low lung volumes, which cause crowding of the bronchovascular markings. MEDIASTINUM: Unremarkable BONES: No acute osseous abnormality OTHER: Right subclavian axillary vascular endovascular stents. - ------ PROCEDURE(s): RLEAD - Rt Low Ext Art Duplex REASON: osteomyelitis ORDER NUMBER(s): [id number], ACCESSION NUMBER(s): [id number] Indication: osteomyelitis Technique: Real- time ultrasound images of the lower extremity with grayscale, color, and spectral wave Doppler. Comparison: CT CT R FOOT WO CONTRAST on DOS: 09/15/24, XY R FOOT 3 VIEW XRAY on DOS: 07/28/24 Findings: Monophasic waveforms throughout the right lower extremity. On the color flow images, there is focal short segment severe stenosis of the proximal right SFA, image 6. Right lower extremity soft tissue edema. Peak systolic velocities are as follows (in cm/s): Right: Common femoral artery: 104 Profunda femoris: 71 Proximal superficial femoral: 115 Mid superficial femoral artery: 71 Distal superficial femoral artery: 143 Popliteal artery: 170 Posterior tibial artery: 29 Dorsalis pedis artery: 98 Impression: Severe stenosis of the proximal right SFA. Diffuse monophasic waveforms which May also suggest aortoiliac inflow disease. Elevated velocity within the right popliteal artery consistent with hemodynamically significant stenosis. ------- PROCEDURE(s): RFTCT - CT R FOOT WO CONTRAST REASON: pain and infection ORDER NUMBER(s): [id number], ACCESSION NUMBER(s): [id number] CT RIGHT KNEE HISTORY: pain and infection COMPARISON: None TECHNIQUE: Multiple axial CT images of the right foot were obtained without intra-articular contrast. Coronal and sagittal bone and soft tissue reformations were also obtained. One or more of the following radiation dose reduction techniques were used for this examination: automated exposure control, adjustment of the mA and/or kV according to patient size, use of iterative reconstruction technique. FINDINGS: Bony demineralization. There is chronic appearing deformity of the 5th metatarsal. 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 There is no acute fracture. There is heterogeneous lucency and sclerosis of the 1st distal phalanx and the 2nd middle and distal phalanges in the distal aspect of the 2nd proximal phalanx. There is soft tissue edema about the 1st and 2nd phalanges. Irregularity of the skin along the dorsal aspects of the 1st and 2nd digits at the level of the phalanges likely wounds. There is subcutaneous edema in the right foot. There is calcified athero sclerosis. IMPRESSION: Osteomyelitis of the 1st and 2nd digits involving the 1st distal phalanx, 2nd middle and distal phalanges in the distal aspect of the 2nd proximal phalanx. Soft tissue swelling and irregularity along the dorsal aspect of the 1st and 2nd digits at the level of the phalanges likely skin wounds. Chronic appearing deformity of the 5th metatarsal which may be from prior infection or trauma. 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 - ------ PROCEDURE(s): EKG - ELECTROCARDIGRAM ORDER NUMBER(s): [id number], ACCESSION NUMBER(s): [id number] [facility] Test Date: 2024-09-18 Test Time: 04:38:46 Pat Name: GEMMA BARR Department: Room: [facility] Gender: M Feed [employer]: FABIANA : 1970 Requested By: RUSTY LUCERO Order Number: [id number] Pam MD: Aurelio Putnam Measurements Intervals Wray Rate: 75 P: 50 AK: 173 QRS: -1 QRSD: 110 T: 162 QT: 432 QTc: 483 Interpretive Statements Sinus rhythm Abnormal R-wave progression, late transition Abnormal T, consider ischemia, lateral leads Electronically Signed On 09-21-2024 21:39:09 PDT by Aurelio Putnam Please click the below link to view image of tracing. DICTATED BY:AURELIO PUTNAM Sr., MD DICTATED DATE/TIME:09/18/24 0438 ------- Procedure Details: The patient was brought to the operating room placed on the operating table in the supine position. After MAC anesthesia was achieved with proximally 20 cc of 0.25% Naropin was injected in a Reynolds block as well as V block fashion to the right great and 2nd toes without incident. The right foot and leg was then prepped and draped in the proper aseptic manner. Attention was now directed to procedure 1. Procedure 1. Amputation of the right great toe at the metatarsophalangeal joint: After topographical markings to ensure proper flap closure, an incision was made by means of sharp and blunt dissection with care being taken to preserve all underlying vital structures all bleeders were bovied or ligated as necessary. Deep dissection was carried down to the level of the capsule the capsule was incised linearly reflecting the 1st metatarsophalangeal joint of the right foot. Utilizing deep dissection of the right great toe at the metatarsophalangeal joint was disarticulated and sent to pathology as specimen. Area was lavaged with copious amounts of Ancef irrigant was aspirated no debris was noted. Deep tissue was closed and reanastomosed utilizing 3-0 Vicryl suture, subcuticular stitch with 4-0 Vicryl suture, skin with small skin myles. Attention was now directed to procedure 2. Procedure 2. Amputation of the 2nd right toe at the metatarsophalangeal joint: The same procedure and deformity as was seen in performed in procedure 1. Luis Enrique seen and performed the procedure 2. Without any additions or deletions and with the end result being the same. It is important to note that three deep cultures were taken from the right great and 2nd toes and sub pathology as a specimen. It is also important to note that the patient was prophylaxed with 2 g of IV Ancef prior to surgery. The patient will continue with IV antibiotics for a regimen of 4-6 weeks as well. The patient tolerated the procedure well left the operating recovery room stable condition. There were no intraoperative complications. Specimen: Osteomyelitic right great toe and 2nd right toe. - ------ Condition at Discharge: Stable Final Diagnosis/Problems List #ESRD #severe peripheral arterial disease, s/p angioplasty right lower extremity #Diabetic foot ulcer #Osteomyelitis of the Right foot #DM type 2, with hyperglycemia #peripheral neuropathy due to above #Hypertension #Hyperlipidemia Discharge Disposition: Home Discharge Instruct/Medications Diet: Renal Activity: See Comment Activity comment: left leg amputation and useing wheelchair Follow Up/Referral: Follow up with Dr. Fernandez in 1 week. Medications: -Percocet -continue home medications Scheduled Acetaminophen (Acetaminophen), 325 MG PO TIDPRN, (Reported) Apixaban Base (Eliquis), 5 MG PO BID Apixaban Base (Eliquis), 10 MG PO BID Aspirin (Asa), 81 MG PO DAILY, (Reported) Aspirin (Aspir-Low), 81 MG PO DAILY, (Reported) Carvedilol (Coreg), 12.5 MG PO BID, (Reported) Carvedilol (Carvedilol), 1 TAB PO BID, (Reported) Cephalexin Monohydrate (Cephalexin), 500 MG PO Q6HR Cholecalciferol (Vitamin D3), 2,000 UNIT PO DAILY, (Reported) Cholecalciferol (Vitamin D3), 1 TAB PO DAILY, (Reported) Cinacalcet Hydrochloride (Sensipar), 1 TAB PO DAILY, (Reported) Gabapentin (Gabapentin), 1 CAP PO TID, (Reported) Glipizide (Glipizide), 5 MG PO DAILY, (Reported) Hydrocodone-Acetaminophen (Hydrocodone Bitartrate/AC 10-325 mg), 1 TAB PO QIDPRN, (Reported) Melatonin (Kp Melatonin), 1 TAB PO QPM, (Reported) Midodrine HCl (Midodrine HCl), 10 MG PO DAILYP, (Reported) Nifedipine (Nifedipine Er), 1 TAB PO DAILY Sevelamer Carbonate (Renvela), 3 TAB PO TID, (Reported) Sevelamer Carbonate (Renvela), 4 TAB PO TIDWM, (Reported) Simvastatin (Zocor), 1 TAB PO DAILY, (Reported) Simvastatin (Simvastatin), 40 MG PO DAILY, (Reported) Scheduled PRN Oxycodone W/ Acetaminophen (Percocet 5/325MG), 1 TAB PO QID PRN Discharge Statement: "Patient was advised to return to the ER or call 911 if any headaches, dizziness, shortness of breath, chest pain, abdominal pain, bleeding, fevers, or worsening of medical condition. Patient was counseled about treatment plan, medications, possible side effects, patientverbalized understanding. All questions were answered to the best of my ability. This discharge took greater then 30 minutes in planning, reviewing documentation, counseling the patient, and discussing with other team members." ASSESSMENT ASSESSMENT Assessment #ESRD #severe peripheral arterial disease, s/p angioplasty right lower extremity #Diabetic foot ulcer #Osteomyelitis of the Right foot #DM type 2, with hyperglycemia #peripheral neuropathy due to above #Hypertension #Hyperlipidemia Date of Service: Sep 24, 2024 Billing Provider: ROSALIA SHORT MD Common Visit Codes: 24095-ABD/OBS DISCH DAY >30min RUSTY LUCERO RESIDENT Sep 24, 2024 18:25 ROSALIA SHORT MD Sep 27, 2024 20:42
== END 2024-09-24 16:04 | disposition home or self-care (01) | DRG 252 ==
LOC: ER 18:00 → OVERFLOW 23:11 → WEST WING 09-16 22:42
PROVIDERS: ADMIT Internal Medicine Geriatric Medicine; ATTEND Surgery Vascular Surgery
PROC: 5A1D70Z Performance of Urinary Filtration, Intermittent, Less than 6 Hours Per Day (ICD-10-PCS; 2024-09-16)
PROC: 047L3ZZ Dilation of Left Femoral Artery, Percutaneous Approach (ICD-10-PCS; principal; 2024-09-18)
PROC: B41FYZZ Fluoroscopy of Right Lower Extremity Arteries using Other Contrast (ICD-10-PCS; 2024-09-18)
PROC: B41DYZZ Fluoroscopy of Aorta and Bilateral Lower Extremity Arteries using Other Contrast (ICD-10-PCS; 2024-09-18)
PROC: 5A1D70Z Performance of Urinary Filtration, Intermittent, Less than 6 Hours Per Day (ICD-10-PCS; 2024-09-18)
PROC: 5A1D70Z Performance of Urinary Filtration, Intermittent, Less than 6 Hours Per Day (ICD-10-PCS; 2024-09-20)
PROC: 5A1D70Z Performance of Urinary Filtration, Intermittent, Less than 6 Hours Per Day (ICD-10-PCS; 2024-09-21)
PROC: 0Y6P0Z0 Detachment at Right 1st Toe, Complete, Open Approach (ICD-10-PCS; 2024-09-23)
PROC: 0Y6R0Z0 Detachment at Right 2nd Toe, Complete, Open Approach (ICD-10-PCS; 2024-09-23)
PROC: 5A1D70Z Performance of Urinary Filtration, Intermittent, Less than 6 Hours Per Day (ICD-10-PCS; 2024-09-23)
DX: T82.856A Stenosis of peripheral vascular stent, initial encounter (principal); N18.6 End stage renal disease; M86.8X7 Other osteomyelitis, ankle and foot; I12.0 Hypertensive chronic kidney disease with stage 5 chronic kidney disease or end stage renal disease; L03.115 Cellulitis of right lower limb; L97.518 Non-pressure chronic ulcer of other part of right foot with other specified severity; E11.51 Type 2 diabetes mellitus with diabetic peripheral angiopathy without gangrene; Z99.2 Dependence on renal dialysis; E11.42 Type 2 diabetes mellitus with diabetic polyneuropathy; E11.69 Type 2 diabetes mellitus with other specified complication; E11.621 Type 2 diabetes mellitus with foot ulcer; E11.65 Type 2 diabetes mellitus with hyperglycemia; F41.0 Panic disorder [episodic paroxysmal anxiety]; I70.291 Other atherosclerosis of native arteries of extremities, right leg; E11.22 Type 2 diabetes mellitus with diabetic chronic kidney disease; Z88.2 Allergy status to sulfonamides; E78.5 Hyperlipidemia, unspecified; Z98.62 Peripheral vascular angioplasty status; Z89.512 Acquired absence of left leg below knee; Z86.73 Personal history of transient ischemic attack (TIA), and cerebral infarction without residual deficits; Y83.8 Other surgical procedures as the cause of abnormal reaction of the patient, or of later complication, without mention of misadventure at the time of the procedure; Y92.89 Other specified places as the place of occurrence of the external cause
CPT/HCPCS: 36415; 37224; 71045; 73501; 73700; 80048; 80053; 80202; 82565; 82962; 83036; 85007; 85025; 85027; 85610; 85652; 85730; 86706; 86850; 86900; 86901; 87040; 87070; 87075; 87077; 87186; 87205; 87340; 90935; 93005; 93306; 93926; 99152; C1894; G0378; J0690; J1642; J1815; J2250; J2405; J2543; J2704; Q9967

== ENCOUNTER 2024-11-03 15:49 | Inpatient (IN) | payer MEDICARE, MEDICAID ==
[~2024-11-03] VITALS: Ht 162.6 cm; Wt 95.5 kg
[~2024-11-03 15:49] MED LIST changes: +PERCOT PO
[2024-11-03 16:31] LABS: Hematocrit 33.8 % (41.0-53.0); Hemoglobin 11.0 g/dL (13.5-17.5); Mean Corpuscular Hemoglobin 30.4 pg (28.0-32.0); Mean Corpuscular Volume 93.8 fL (80.0-100.0); Nucleated Red Blood Cells % 0.2 %
[2024-11-03] MEDS: IPRATROPIUM BROM 0.5 MG/2.5ML INH SOL HHN ONE (16:32)
[2024-11-03] MEDS: ALBUTEROL SULF 2.5 MG/0.5ML(0.5%) NEB SOLN HHN ONE (16:32)
[2024-11-03 16:35] VITALS: PULSE 78; RESP 18; O2SAT 100
--- NOTE | 2024-11-03 16:39 | ED.PDOC ---
SOB-HPI HPI Comments 54y M who presents to the ED via EMS for chief complaint of shortness of breath. Pt states he has been having shortness of breath for 30x minutes prior to calling EMS this afternoon. EMS arrived on scene and pt had vitals checked with noted 02 sat of 80% on room air and pt was originally placed on 2 L and then placed on 4 L via nc with 02 sat rising to 94% and pt was brought to the ED. Pt now in the ED, states he has history of COPD and is on supplemental 02 as needed. Pt otherwise denies any other symptoms. Pt in the ED, has noted temp of 99.7 F. 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, Medications, Allergies Information Source: Patient, Emergency Med Personnel Mode of Arrival: EMS Brought in by: EMS Severity: Moderate Timing: Minutes Duration: Since onset Context: At Rest, With Light Exertion PE Risk Factors: None History of: COPD Prehospital treatment: Oxygen Modifying Factors: Nothing Associated Signs and Symptoms: None Past Medical History PAST MEDICAL HISTORY: Cancer, CVA, DM, ESRD, High Lipids, HTN Surgical History: Appendectomy, BKA Surgical History (Other): cataracts, L below knee amputation, Family History Family History: Reviewed,noncontributory to illness Social History Smoker: Non-Smoker Alcohol: Occasionally Drugs: Denies Drug Use Lives In: Home Constitutional: denies: chills, diaphoresis, fatigue, fever, malaise, sweats, weakness, others EENTM: denies: blurred vision, double vision, ear bleeding, ear discharge, ear drainage, ear pain, ear ringing, eye pain, eye redness, hearing loss, mouth pain, mouth swelling, nasal discharge, nose bleeding, nose congestion, nose pain, photophobia, tearing, throat pain, throat swelling, voice changes, others Respiratory: reports: shortness of breath; denies: cough, hemoptysis, orthopnea, SOB at rest, SOB with excertion, stridor, wheezing, others Cardiovascular: denies: chest pain, dizzy spells, diaphoresis, Dyspnea on exertion, edema, irregular heart beat, left arm pain, lightheadedness, palpitations, PND, syncope, others Gastrointestinal: denies: abdomen distended, abdominal pain, blood streaked bowels, constipated, diarrhea, dysphagia, difficulty swallowing, hematemesis, melena, nausea, poor appetite, poor fluid intake, rectal bleeding, rectal pain, vomiting, others Genitourinary: denies: burning, dysuria, flank pain, frequency, hematuria, incontinence, penile discharge, penile sore, pain, testicle pain, testicle swelling, urgency, others Neurological: denies: dizziness, fainting, headache, left sided numbness, left sided weakness, numbness, paresthesia, pre-existing deficit, right sided numbness, right sided weakness, seizure, speech problems, tingling, tremors, weakness, others Musculoskeletal: denies: back pain, gout, joint pain, joint swelling, muscle pain, muscle stiffness, neck pain, others Integumetry: denies: bruises, change in color, change in hair/nails, dryness, laceration, lesions, lumps, rash, wounds, others Allergic/Immunocompromised: denies: Difficulty Healing, Frequent Infections, Hives, Itching, others Hematologic/Lymphatic: denies: anemia, blood clots, easy bleeding, easy bruising, swollen glands, others Endocrine: denies: excessive hunger, excessive sweating, excessive thirst, excessive urination, flushing, intolerance to cold, intolerance to heat, unexplained weight gain, unexplained weight loss, others Psychiatric: denies: anxiety, bipolar disorder, depression, hopeless, panic disorder, schizophrenia, sleepless, suicidal, others All Other Systems: Reviewed and Negative Physical Exam General Appearance: Moderate Distress HEENT: Normal ENT Inspection, Pharynx Normal, TMs Normal Neck: Full Range of Motion, Non-Tender, Normal, Normal Inspection Respiratory: Chest Non-Tender, Decreased Breath Sounds, No Accessory Muscle Use, Respiratory Distress Cardiovascular: No Edema, No JVD, No Murmur, No Gallop, Normal Peripheral Pulses, Regular Rate/Rhythm Breast Exam: Deferred Gastrointestinal: No Organomegaly, Non Tender, No Pulsatile Mass, Normal Bowel Sounds, Soft Genitalia: Deferred Pelvic: Deferred Rectal: Deferred Extremities: No calf tenderness, Normal capillary refill, Normal inspection, Normal range of motion, Non-tender, No pedal edema Musculoskeletal : Location: Left Apperance: Other (Left BKA) Neurologic: Alert, 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 Was a procedure done?: No Differential Dx Differential Diagnosis: Bronchitis, CHF, COPD, Pneumonia, Pulmonary Embolism, Respiratory Distress, URI Comments COVID, Influenza A and B X-Ray, Labs, Meds, VS Vital Signs Date Time Temp Pulse Resp B/P (MAP) Pulse Ox O2 Delivery O2 Flow Rate FiO2 11/03/24 16:39 92 11/03/24 16:35 78 18 100 Nasal Cannula* 4 36 11/03/24 16:35 98.3 78 15 169/64 (99) 99 98.3 11/03/24 16:33 16 91 Nasal Cannula* 2 28 11/03/24 15:58 99.7 83 15 126/65 91 99.7 11/03/24 15:54 82 Lab Test 11/03/24 16:21 Range/Units White Blood Count 5.8 4.4-10.8 10^3/uL Red Blood Count 3.60 L 4.5-5.90 10^6/uL Hemoglobin 11.0 L 13.5-17.5 g/dL Hematocrit 33.8 L 41.0-53.0 % Mean Corpuscular Volume 93.8 80.0-100.0 fL Mean Corpuscular Hemoglobin 30.4 28.0-32.0 pg Mean Corpuscular Hemoglobin Concent 32.4 32.0-36.0 g/dL Red Cell Distribution Width 15.3 H 11.8-14.3 % Platelet Count 178 140-450 10^3/uL Mean Platelet Volume 7.5 6.9-10.8 fL Neutrophils (%) (Auto) 63.0 37.0-80.0 % Lymphocytes (%) (Auto) 18.7 10.0-50.0 % Monocytes (%) (Auto) 13.7 H 0.0-12.0 % Eosinophils (%) (Auto) 3.5 0.0-7.0 % Basophils (%) (Auto) 1.1 0.0-2.0 % Neutrophils # (Auto) 3.6 1.6-8.6 10 ^3/uL Lymphocytes # (Auto) 1.1 0.4-5.4 10 ^3/uL Monocytes # (Auto) 0.8 0-1.3 10 ^3/uL Eosinophils # (Auto) 0.2 0-0.8 10 ^3/uL Basophils # (Auto) 0.1 0-0.2 10 ^3/uL Nucleated Red Blood Cells 0.2 % Sodium Level 139 136-145 mmol/L Potassium Level 5.8 *H 3.5-5.1 mmol/L Chloride Level 96 L 98-107 mmol/L Carbon Dioxide Level 32 H 20-31 mmol/L Anion Gap 11 5-15 Blood Urea Nitrogen 48 H 9-23 mg/dL Creatinine 8.52 H 0.700-1.30 mg/dL Glomerular Filtration Rate Calc 7 >90 mL/min BUN/Creatinine Ratio 5.6 L 10.0-20.0 Serum Glucose 65 L 74-106 mg/dL Calcium Level 8.8 8.7-10.4 mg/dL Troponin I High Sensitivity 12 </=54 ng/L B-Type Natriuretic Peptide 174.25 0-100 pg/mL Current Medications Medications (Trade) Dose Ordered Sig/Didier Route Start Time Stop Time Status Last Admin Methylprednisolone Sodium Succinate (Solu Medrol) 125 mg ONCE ONCE IV 11/03/24 16:00 11/03/24 16:01 DC 11/03/24 16:50 Ipratropium [place] (Atrovent Medneb) 1 mg ONCE ONCE N 11/03/24 16:00 11/03/24 16:01 DC 11/03/24 16:32 Albuterol (Ventolin Medneb) 10 mg ONCE ONCE N 11/03/24 16:00 11/03/24 16:01 DC 11/03/24 16:32 IV Hep-Lock was established. The patient was given Solu-Medrol 125 mg IV push The patient was given a continuous breathing treatment of albuterol and Atrovent. The BNP is within normal limits The troponin levels within normal limits The patient's CBC is within normal limits The chemistry panel shows a potassium of 5.8 The BUN in the creatinine were elevated. The chloride is 96 At this time, the patient is being admitted to the hospitalist. The chest x-ray shows: FINDINGS: Right axillary, subclavian, brachiocephalic stents extending into the SVC. The cardiac silhouette is enlarged. The lungs demonstrate bilateral patchy airspace opacities. The pulmonary vasculature is prominent. Small bilateral pleural effusions.. There is no pneumothorax. The patient is admitted The patient is given calcium chloride, sodium bicarbonate, dextrose and insulin for the hyperkalemia Images Reviewed?: Images reviewed and evaluated by me Time of 1ST Reevaluation: 17:10 Reevaluation 1ST: Unchanged Patient Education/Counseling: Diagnosis, Treatment, Prognosis Family Education/Counseling: No Family Present SEPSIS Sepsis Screen Date sepsis recognized/suspect: Nov 03, 2024 Time Sepsis recognized/suspect: 1554 Recent Procedure: No On Antibiotic Therapy: No Respiratory Rate >20: No Heart Rate >90: No Temp<36 C (96.8 F) or >38.3 C: No SBP <90 or MAP <65 mmHG: No New Acute Mental Status Change: No Is the patient on CPAP, BIPAP,: No Physician Orders Electrocardigram (11/03/24 15:59) Urinalysis (11/03/24 15:58) Med Neb Initial Treatment (11/03/24 15:58) Chest Portable (11/03/24 15:58) Heplock Iv (11/03/24 15:58) Pulse Oximetry (11/03/24 15:58) Us Administrative Law Judge (11/03/24 15:58) Blood Pressure (11/03/24 15:58) Covid19 Antigen Jacinda (11/03/24 ) Rapid Influenza A&B (11/03/24 15:58) Troponin-I Hs (11/03/24 16:58) Troponin-I Hs (11/03/24 18:58) Vital Signs Date Time Temp Pulse Resp B/P (MAP) Pulse Ox O2 Delivery O2 Flow Rate FiO2 11/03/24 16:39 92 11/03/24 16:35 78 18 100 Nasal Cannula* 4 36 11/03/24 16:35 98.3 78 15 169/64 (99) 99 98.3 11/03/24 16:33 16 91 Nasal Cannula* 2 28 11/03/24 15:58 99.7 83 15 126/65 91 99.7 11/03/24 15:54 82 Laboratory Tests Test 11/03/24 16:21 White Blood Count 5.8 10^3/uL (4.4-10.8) Medications Medications Dose Ordered Sig/Didier Route Start Time Stop Time Status Last Admin Dose Admin Albuterol 10 mg ONCE ONCE HHN 11/03/24 16:00 11/03/24 16:01 DC 11/03/24 16:32 Ipratropium [place] 1 mg ONCE ONCE HHN 11/03/24 16:00 11/03/24 16:01 DC 11/03/24 16:32 Methylprednisolone Sodium Succinate 125 mg ONCE ONCE IV 11/03/24 16:00 11/03/24 16:01 DC 11/03/24 16:50 Departure 1 Departure Time of Disposition: 18:01 Impression: Primary Impression: Anemia in chronic kidney disease (CKD) Qualified Codes: N18.9 - Chronic kidney disease, unspecified; D63.1 - Anemia in chronic kidney disease Additional Impressions: ESRD on dialysis Hyperkalemia Disposition: ADMITTED INPATIENT Admit to: [facility] Condition: Fair Critical Care Note Critical Care Time?: No Stability Stability form required: No Heart Score Heart Score: Heart Score Response (Comments) Value History Slightly Suspicious 0 EKG Normal 0 Age 45-64 1 Risk Factors >3 or Hx ASHD 2 Troponin Normal limit 0 Total 3 I personally scribed for TOMER NICHOLAS MD ([email or web address]) on 11/03/24 at 16:39. Electronically submitted by Cleo Nova ([facility]). TOMER NICHOLAS MD Nov 03, 2024 16:39
[2024-11-03 16:43] LABS: Sodium 139 mmol/L (136-145)
[2024-11-03 16:44] LABS: Anion Gap 11 (5-15); Calcium 8.8 mg/dL (8.7-10.4)
[2024-11-03 16:49] LABS: BUN/Creatinine Ratio 5.6 (10.0-20.0)
[2024-11-03] MEDS: methylPREDNISolone SOD SUCC 125 MG/2 ML VL IV ONE (16:50)
[2024-11-03 17:20] LABS: Blood Urea Nitrogen 48 mg/dL (9-23); Carbon Dioxide 32 mmol/L (20-31); Chloride 96 mmol/L (98-107); Glucose 65 mg/dL (74-106)
[2024-11-03 17:21] LABS: Potassium 5.8 mmol/L (3.5-5.1)
--- NOTE | 2024-11-03 17:30 | DVH ---
CHEST RADIOGRAPH Indication: sob Technique: XY CHEST PORTABLE COMPARISON: None FINDINGS: Right axillary, subclavian, brachiocephalic stents extending into the SVC. The cardiac silhouette is enlarged. The lungs demonstrate bilateral patchy airspace opacities. The pu lmonary vasculature is prominent. Small bilateral pleural effusions.. There is no pneumothorax. IMPRESSION: As above
--- NOTE | 2024-11-03 18:30 | ECG ---
[facility] Test Date: 2024-11-03 Test Time: 15:54:33 Pat Name: GEMMA BARR Department: Room: [address] [place] [address] Gender: M [employer]: : 1970 Requested By: TOMER NICHOLAS Order Number: [id number] Reading MD: Gabino Balderas Measurements Intervals [place] Rate: 82 P: 29 HI: 169 QRS: -49 QRSD: 104 T: 112 QT: 417 QTc: 487 Interpretive Statements Sinus rhythm Left anterior fascicular block Probable anteroseptal infarct, old Abnormal T, consider ischemia, lateral leads Electronically Signed On 11-04-2024 17:00:24 PDT by Gabino Balderas Please click the below link to view image of tracing.
[2024-11-03 18:54] LABS: COVID19 ANTIGEN SOFIA FIA NEGATIVE (NEGATIVE)
[2024-11-03] MEDS: CALCIUM GLUC 1,000mg/50ml-NS 50 ML IV ONE (18:54)
[2024-11-03] MEDS: DEXTROSE (50%) 50ML SYRG IV ONE ×2 (18:55→19:36)
[2024-11-03] MEDS: SODIUM BICARB 8.4% 50Meq/50ml SYR Vial IV ONE (19:36)
[2024-11-03] MEDS: InsuLIN REG 1unit/0.01ml Soln (100units/ml) IV ONE (19:37)
[2024-11-03 20:00] VITALS: PULSE 84; RESP 16; O2SAT 96
[2024-11-03] MEDS ORDERED: DEXTROSE (50%) 50ML SYRG IV PRN (20:00)
[2024-11-03] MEDS ORDERED: ACETAMINOPHEN 325 MG TAB PO PRN (20:00)
[2024-11-03] MEDS ORDERED: ALBUTEROL SULF 2.5 MG/0.5ML(0.5%) NEB SOLN NEB PRN (20:00)
[2024-11-03] MEDS ORDERED: IPRATROPIUM BROM 0.5 MG/2.5ML INH SOL NEB PRN (20:00)
[2024-11-03] MEDS ORDERED: ONDANSETRON HCL 4 MG/2 ML VIAL IV PRN (20:00)
[2024-11-03 20:04] VITALS: BP 172/72; PULSE 74; RESP 16; TEMP 98.3; O2SAT 99
[2024-11-03] MEDS: SODIUM ZIRCONIUM CYCL 10 GM PAK PO ONE (20:44)
[2024-11-03] MEDS: GABAPENTIN 300 MG CAP PO SCH (21:49)
[2024-11-03] MEDS: APIXABAN 5 MG TAB PO SCH (21:49)
[2024-11-03] MEDS: CARVEDILOL 12.5 MG TAB PO SCH (21:49)
[2024-11-03] MEDS: ATORVASTATIN 20 MG TAB PO SCH (21:49)
[2024-11-03] MEDS: InsuLIN REG 1unit/0.01ml Soln (100units/ml) SC SCH (21:52)
[2024-11-03] MEDS: ACCU-CHEK COMFORT CURVE STRIP VI SCH (21:54)
[2024-11-04] MEDS: hydrALAZINE HCL 20 MG/ML VL ONE (00:54)
[2024-11-04] MEDS: hydrALAZINE HCL 20 MG/ML VL IV ONE (01:00)
--- NOTE | 2024-11-04 02:52 | DVHHP2 ---
History of Present Illness Reason for Visit: Shortness for breath History of Present Illness 64-year-old male presents for evaluation of shortness for breath. Patient reports a one day history male pain shortness for breath with associated chest tightness. Patient presented to the emergency department saturating in the low 80s. Patient reports using oxygen at home as needed. No cough. He does report chills for the past couple of days intermittently. Past Medical History End-stage renal disease, diabetes mellitus, CVA, dyslipidemia, hypertension Past Surgical History Appendectomy, dialysis access, left BKA Family History Noncontributory Smoke: No ALCOHOL: occassional Drugs: None Lives: with Family Review of Systems Review of Systems Review of systems are currently negative otherwise addressed in HPI. Allergies: Coded Allergies: Baclofen (Verified Allergy, Severe, 07/02/17) Sulfa Antibiotics (Unverified Allergy, Unknown, 11/20/22) Sulfamethoxazole w/Trimethoprim (Verified Allergy, Unknown, 05/14/17) Medications Current Medications Medications Dose Ordered Sig/Didier Route Start Time Stop Time Status Last Admin Dose Admin Carvedilol 12.5 mg Q12HR PO 11/03/24 22:00 11/03/24 21:49 12.5 MG Gabapentin 300 mg TID PO 11/03/24 22:00 11/03/24 21:49 300 MG Nifedipine 30 mg DAILY PO 11/04/24 10:00 Sevelamer HCl 800 mg TIDWM PO 11/04/24 08:00 Atorvastatin Calcium 40 mg HS PO 11/03/24 22:00 11/03/24 21:49 40 MG Aspirin 81 mg DAILY PO 11/04/24 10:00 Apixaban 5 mg BID PO 11/03/24 22:00 11/03/24 21:49 5 MG Albuterol 2.5 mg Q6HPRN PRN NEB 11/03/24 20:00 Ipratropium [place] 0.5 mg Q6HPRN PRN NEB 11/03/24 20:00 Azithromycin 250 ml @ 125 mls/hr DAILY IV 11/04/24 10:00 Diagnostic Test (Pha) 1 strip ACHS 11/03/24 22:00 11/03/24 21:54 1 STRIP Insulin Human Regular ACHS SC 11/03/24 22:00 11/03/24 21:52 4 UNITS Dextrose 50 ml UD PRN IV 11/03/24 20:00 Ondansetron HCl 4 mg Q4HP PRN IV 11/03/24 20:00 Acetaminophen 650 mg Q6HP PRN PO 11/03/24 20:00 Exam Vital Signs Vital Signs Date Time Temp Pulse Resp B/P (MAP) Pulse Ox O2 Delivery O2 Flow Rate FiO2 11/04/24 02:20 93 12 160/69 (99) 93 11/03/24 20:30 98.2 98.2 11/03/24 20:04 4.0 36 11/03/24 20:00 Nasal Cannula* Exam Gen: 54-year-old male in mild distress, obese Skin: Warm, dry, normal color and texture, no rash. HEENT: Normocephalic atraumatic, mucous membranes moist and pink. Neck: Cervical and supraclavicular nodes normal without enlargement, trachea is midline, thyroid gland is normal without masses. Pulmonary: Diminished breath sounds bilaterally Cardiac: Regular rate and rhythm. No murmur Abdomen: Soft, nontender, nondistended, bowel sounds present all 4 quadrants, no guarding, no rigidity, no organomegaly. Extremities: No cyanosis, clubbing, no edema Neuro: Cranial nerves II through XII grossly intact, normal affect and speech, no focal motor deficits. Labs/Xrays ORDERING PHYSICIAN: TOMER NICHOLAS MD PROCEDURE(s): CXRP - CHEST PORTABLE REASON: sob ORDER NUMBER(s): [id number], ACCESSION NUMBER(s): [id number] CHEST RADIOGRAPH Indication: sob Technique: XY CHEST PORTABLE COMPARISON: None FINDINGS: Right axillary, subclavian, brachiocephalic stents extending into the SVC. The cardiac silhouette is enlarged. The lungs demonstrate bilateral patchy airspace opacities. The pulmonary vasculature is prominent. Small bilateral pleural effusions.. There is no pneumothorax. IMPRESSION: As above Labs Test 11/03/24 21:38 11/03/24 19:20 11/03/24 17:56 11/03/24 17:51 Range/Units POC Glucose 239 H 70-106 mg/dl Troponin I High Sensitivity 15 </=54 ng/L Influenza Type A Antigen Negative Negative Influenza Type B Antigen Negative Negative SARS-CoV-2 Antigen (Rapid) Negative NEGATIVE Urine RBC 0 - 3 /hpf Urine Squamous Epithelial Cells <5 /hpf Urine Bacteria None Seen /hpf Test 11/03/24 16:21 Range/Units White Blood Count 5.8 4.4-10.8 10^3/uL Red Blood Count 3.60 L 4.5-5.90 10^6/uL Hemoglobin 11.0 L 13.5-17.5 g/dL Hematocrit 33.8 L 41.0-53.0 % Mean Corpuscular Volume 93.8 80.0-100.0 fL Mean Corpuscular Hemoglobin 30.4 28.0-32.0 pg Mean Corpuscular Hemoglobin Concent 32.4 32.0-36.0 g/dL Red Cell Distribution Width 15.3 H 11.8-14.3 % Platelet Count 178 140-450 10^3/uL Mean Platelet Volume 7.5 6.9-10.8 fL Neutrophils (%) (Auto) 63.0 37.0-80.0 % Lymphocytes (%) (Auto) 18.7 10.0-50.0 % Monocytes (%) (Auto) 13.7 H 0.0-12.0 % Eosinophils (%) (Auto) 3.5 0.0-7.0 % Basophils (%) (Auto) 1.1 0.0-2.0 % Neutrophils # (Auto) 3.6 1.6-8.6 10 ^3/uL Lymphocytes # (Auto) 1.1 0.4-5.4 10 ^3/uL Monocytes # (Auto) 0.8 0-1.3 10 ^3/uL Eosinophils # (Auto) 0.2 0-0.8 10 ^3/uL Basophils # (Auto) 0.1 0-0.2 10 ^3/uL Nucleated Red Blood Cells 0.2 % Sodium Level 139 136-145 mmol/L Potassium Level 5.8 *H 3.5-5.1 mmol/L Chloride Level 96 L 98-107 mmol/L Carbon Dioxide Level 32 H 20-31 mmol/L Anion Gap 11 5-15 Blood Urea Nitrogen 48 H 9-23 mg/dL Creatinine 8.52 H 0.700-1.30 mg/dL Glomerular Filtration Rate Calc 7 >90 mL/min BUN/Creatinine Ratio 5.6 L 10.0-20.0 Serum Glucose 65 L 74-106 mg/dL Calcium Level 8.8 8.7-10.4 mg/dL B-Type Natriuretic Peptide 174.25 0-100 pg/mL SEPSIS Sepsis Screen Date sepsis recognized/suspect: Nov 03, 2024 Time Sepsis recognized/suspect: 1999 Recent Procedure: No On Antibiotic Therapy: No Respiratory Rate >20: No Heart Rate >90: No Temp<36 C (96.8 F) or >38.3 C: No SBP <90 or MAP <65 mmHG: No New Acute Mental Status Change: No Is the patient on CPAP, BIPAP,: No Physician Orders *[facility] (11/03/24 19:47) Carvedilol Tablet (Coreg Tablet) (11/03/24 22:00) Gabapentin Capsule (Neurontin Capsule) (11/03/24 22:00) Nifedipine Er (Procardia Xl (Time-Releas (11/04/24 10:00) Sevelamer (Renagel) (11/04/24 08:00) Atorvastatin (Lipitor) (11/03/24 22:00) Aspirin Tablet (11/04/24 10:00) Apixaban (Eliquis) (11/03/24 22:00) Albuterol Medneb (Ventolin Medneb) (11/03/24 20:00) Ipratropium Medneb (Atrovent Medneb) (11/03/24 20:00) Azithromycin 500mg/ 250ml (Zithromax 50 (11/04/24 10:00) Consistent Carb(Ccho)Diabetes (11/04/24 Breakfast) Basic Metabolic Panel (11/04/24 04:00) Glucose Blood (Accu-Chek Comfort Curve T (11/03/24 22:00) Insulin R (Human) (Insulin R) (11/03/24 22:00) Dextrose 50% Syringe (11/03/24 20:00) Admit (11/03/24 19:47) Ondansetron Hcl (Zofran) (11/03/24 20:00) Complete Blood Count (11/04/24 04:00) Condition: Stable (11/03/24 19:47) Acetaminophen Tablet (Tylenol Tablet) (11/03/24 20:00) Bedrest With Bathroom Privileg (11/03/24 19:47) Vital Signs Date Time Temp Pulse Resp B/P (MAP) Pulse Ox O2 Delivery O2 Flow Rate FiO2 11/04/24 02:20 93 12 160/69 (99) 93 11/04/24 01:54 90 172/80 11/04/24 01:00 196/95 11/04/24 00:30 87 12 188/90 (122) 90 11/03/24 22:30 87 13 201/97 (131) 95 11/03/24 21:49 86 178/71 11/03/24 20:30 98.2 88 11 185/77 (113) 98 98.2 11/03/24 20:04 98.3 74 16 172/72 99 4.0 36 98.3 11/03/24 20:00 84 16 96 Nasal Cannula* 2 28 Laboratory Tests Test 11/03/24 16:21 White Blood Count 5.8 10^3/uL (4.4-10.8) Medications Medications Dose Ordered Sig/Didier Route Start Time Stop Time Status Last Admin Dose Admin Albuterol 10 mg ONCE ONCE HHN 11/03/24 16:00 11/03/24 16:01 DC 11/03/24 16:32 10 MG Apixaban 5 mg BID PO 11/03/24 22:00 11/03/24 21:49 5 MG Atorvastatin Calcium 40 mg HS PO 11/03/24 22:00 11/03/24 21:49 40 MG Calcium Gluconate/ Sodium Chloride 50 ml @ 100 mls/hr ONCE ONCE IV 11/03/24 18:45 11/03/24 19:14 DC 11/03/24 18:54 100 MLS/HR Carvedilol 12.5 mg Q12HR PO 11/03/24 22:00 11/03/24 21:49 12.5 MG Dextrose 50 ml ONCE ONCE IV 11/03/24 18:45 11/03/24 18:46 DC 11/03/24 18:55 50 ML Dextrose 50 ml ONCE ONCE IV 11/03/24 19:30 11/03/24 19:31 DC 11/03/24 19:36 50 ML Diagnostic Test (Pha) 1 strip ACHS 11/03/24 22:00 11/03/24 21:54 1 STRIP Gabapentin 300 mg TID PO 11/03/24 22:00 11/03/24 21:49 300 MG Hydralazine HCl 10 mg ONCE ONCE IV 11/04/24 01:00 11/04/24 01:53 DC 11/04/24 01:00 10 MG Insulin Human Regular ACHS SC 11/03/24 22:00 11/03/24 21:52 4 UNITS Insulin Human Regular 5 units ONCE ONCE IV 11/03/24 18:45 11/03/24 18:46 DC 11/03/24 19:37 5 UNITS Ipratropium [place] 1 mg ONCE ONCE HHN 11/03/24 16:00 11/03/24 16:01 DC 11/03/24 16:32 1 MG Methylprednisolone Sodium Succinate 125 mg ONCE ONCE IV 11/03/24 16:00 11/03/24 16:01 DC 11/03/24 16:50 125 MG Sodium Bicarbonate 50 ml ONCE ONCE IV 11/03/24 18:45 11/03/24 18:46 DC 11/03/24 19:36 50 ML Zirconium Oxide 10 gm ONCE ONCE PO 11/03/24 20:00 11/03/24 20:32 DC 11/03/24 20:44 10 GM Assessment/Plan Assessment/Plan Assessment Fluid overload End-stage renal disease, dialysis dependent Anemia of chronic disease Questionable pneumonia Diabetes mellitus Accelerated hypertension Obesity Plan Admit the patient to telemetry to the hospitalist Nephrology consultation Azithromycin Med nebs Resume home medications Continue treatment per orders Plan discussed with: Patient My Orders Orders - KETURAH HURTADO Procedure Category Date Status Time *[facility] CONS 11/03/24 Transmitted -[place] 19:47 Carvedilol Tablet PHA 11/03/24 In Process (Coreg Tablet) 22:00 Gabapentin Capsule PHA 11/03/24 In Process (Neurontin Capsule) 22:00 Nifedipine Er PHA 11/04/24 In Process (Procardia Xl 10:00 Sevelamer (Renagel) PHA 11/04/24 In Process 08:00 Atorvastatin (Lipitor) PHA 11/03/24 In Process 22:00 Aspirin Tablet PHA 11/04/24 In Process 10:00 Apixaban (Eliquis) PHA 11/03/24 In Process 22:00 Albuterol Medneb PHA 11/03/24 In Process (Ventolin Medneb) 20:00 Ipratropium Medneb PHA 11/03/24 In Process (Atrovent Medneb) 20:00 Azithromycin 500mg/ PHA 11/04/24 In Process 250ml (Zithromax 50 10:00 Consistent DIET 11/04/24 Transmitted Carb(Ccho)Diabetes Breakfast Basic Metabolic Panel LAB 11/04/24 Logged 04:00 Glucose Blood PHA 11/03/24 In Process (Accu-Chek Comfort 22:00 Insulin R (Human) PHA 11/03/24 In Process (Insulin R) 22:00 Dextrose 50% Syringe PHA 11/03/24 In Process 20:00 Admit ADMIT 11/03/24 Transmitted 19:47 Ondansetron Hcl PHA 11/03/24 In Process (Zofran) 20:00 Complete Blood Count LAB 11/04/24 Logged 04:00 Condition: Stable BETHANY 11/03/24 In Process 19:47 Acetaminophen Tablet PHA 11/03/24 In Process (Tylenol Tablet) 20:00 Bedrest With Bathroom BETHANY 11/03/24 In Process Privileg 19:47 Date of Service: Nov 03, 2024 Billing Provider: KETURAH HURTADO Common Visit Codes: [id number] INP/OBS CARE (HIGH) KETURAH HURTADO Nov 04, 2024 02:52
[2024-11-04 06:37] LABS: Hematocrit 38.5 % (41.0-53.0); Hemoglobin 12.8 g/dL (13.5-17.5); Mean Corpuscular Hemoglobin 31.1 pg (28.0-32.0); Mean Corpuscular Volume 93.8 fL (80.0-100.0); Nucleated Red Blood Cells % 0.1 %
[2024-11-04 06:43] VITALS: O2SAT 96
[2024-11-04 06:48] LABS: Calcium 9.2 mg/dL (8.7-10.4); Sodium 137 mmol/L (136-145)
[2024-11-04 06:49] LABS: Anion Gap 16 (5-15); Carbon Dioxide 28 mmol/L (20-31)
[2024-11-04 06:54] LABS: BUN/Creatinine Ratio 5.5 (10.0-20.0)
[2024-11-04 06:55] LABS: Blood Urea Nitrogen 52 mg/dL (9-23); Chloride 93 mmol/L (98-107); Glucose 235 mg/dL (74-106)
[2024-11-04 06:56] LABS: Potassium 5.9 mmol/L (3.5-5.1)
[2024-11-04 07:43] VITALS: PULSE 87; RESP 16; O2SAT 96
[2024-11-04] MEDS: ALBUTEROL SULF 2.5 MG/0.5ML(0.5%) NEB SOLN NEB ONE (07:43)
[2024-11-04 07:53] VITALS: PULSE 87; RESP 16; O2SAT 98
[2024-11-04 08:35] VITALS: BP 161/68; PULSE 90; RESP 15; TEMP 98.2; O2SAT 98
[2024-11-04] MEDS: CALCIUM GLUC 1,000mg/50ml-NS 50 ML IV ONE (08:57)
[2024-11-04] MEDS ORDERED: SODIUM CHL 0.9% 1000 ML BAG XX ONE (09:15)
[2024-11-04] MEDS: SEVELAMER 800 MG TAB PO SCH (09:22)
[2024-11-04] MEDS ORDERED: AZITHROMYCIN 500MG/ 250ML 250 ML IV SCH (10:00)
[2024-11-04] MEDS: InsuLIN REG 1unit/0.01ml Soln (100units/ml) IV ONE (10:11)
[2024-11-04] MEDS: SODIUM BICARB 8.4% 50Meq/50ml SYR INJ IV ONE (10:11)
[2024-11-04] MEDS: DEXTROSE (50%) 50ML SYRG IV ONE (10:11)
== END 2024-11-04 10:11 | disposition left against medical advice (07) | DRG 640 ==
LOC: EDBD 15:49 → ER 15:49 → OVERFLOW 19:47
PROVIDERS: ADMIT Nurse Practitioner Acute Care; ATTEND Nurse Practitioner Acute Care
DX: E87.70 Fluid overload, unspecified (principal); J18.9 Pneumonia, unspecified organism; N18.6 End stage renal disease; I12.0 Hypertensive chronic kidney disease with stage 5 chronic kidney disease or end stage renal disease; E66.9 Obesity, unspecified; Z53.29 Procedure and treatment not carried out because of patient's decision for other reasons; E11.22 Type 2 diabetes mellitus with diabetic chronic kidney disease; E78.5 Hyperlipidemia, unspecified; D63.1 Anemia in chronic kidney disease; E87.5 Hyperkalemia; Z89.512 Acquired absence of left leg below knee; Z86.73 Personal history of transient ischemic attack (TIA), and cerebral infarction without residual deficits; Z99.2 Dependence on renal dialysis; Z88.3 Allergy status to other anti-infective agents; Z79.899 Other long term (current) drug therapy; Z68.36 Body mass index [BMI] 36.0-36.9, adult
CPT/HCPCS: 36415; 71045; 80048; 82962; 83880; 84484; 85025; 85379; 87340; 87426; 87804; 93005; 94640; 96365; G0378; J1815